=== PATIENT | male | born 1965 | race Caucasian/White ===

== ENCOUNTER → 2017-02-17 | Outpatient (REF) | payer MEDICARE, MEDICAID ==
[2017-02-17 20:46] LABS: MEAN CORPUSCULAR HEMOGLOBIN 28.9 pg (27.0-33.0); MEAN CORPUSCULAR HGB CONC 32.9 g/dl (32.0-36.5); RED CELL DISTRIBUTION WIDTH 12.5 % (11.5-14.5)
[2017-02-17 21:09] LABS: ALBUMIN/GLOBULIN RATIO 1.08 (1.00-1.93); ALKALINE PHOSPHATASE 78 U/L (45-117); ALT/SGPT 36 U/L (12-78); ANION GAP 8 MEQ/L (8-16); AST/SGOT 23 U/L (15-37); BILIRUBIN,TOTAL 0.9 MG/DL (0.2-1.0); BLOOD UREA NITROGEN 15 MG/DL (7-18); CARBON DIOXIDE LEVEL 29 MEQ/L (21-32); CHLORIDE LEVEL 104 MEQ/L (98-107); CHOLESTEROL LEVEL 188 MG/DL (<200); CREATININE FOR GFR 0.91 MG/DL (0.70-1.30); GLOMERULAR FILTRATION RATE > 60.0 (>60); GLUCOSE, FASTING 78 MG/DL (70-105); POTASSIUM SERUM 4.3 MEQ/L (3.5-5.1); SODIUM LEVEL 141 MEQ/L (136-145); TOTAL PROTEIN 7.7 GM/DL (6.4-8.2); TRIGLYCERIDES LEVEL 110 MG/DL (<150)
== END ==
LOC: M SFHCLERA 14:50
PROVIDERS: ATTEND Physician Assistant
DX: I10 Essential (primary) hypertension (principal); E78.2 Mixed hyperlipidemia; Z12.5 Encounter for screening for malignant neoplasm of prostate
CPT/HCPCS: 80053; 80061; 85027; G0103; G0463

== ENCOUNTER → 2018-02-18 | Outpatient (REF) | payer MEDICARE, MEDICAID ==
[2018-02-18 11:40] LABS: HEMATOCRIT 51.2 % (42.0-52.0); HEMOGLOBIN 16.6 g/dl (13.5-17.5); MEAN CORPUSCULAR HEMOGLOBIN 28.5 pg (27.0-33.0); MEAN CORPUSCULAR HGB CONC 32.4 g/dl (32.0-36.5); MEAN CORPUSCULAR VOLUME 87.8 fl (80.0-96.0); PLATELET COUNT, AUTOMATED 262 10^3/uL (150-450); RED BLOOD COUNT 5.83 10^6/uL (4.30-6.10); RED CELL DISTRIBUTION WIDTH 13.2 % (11.5-14.5); WHITE BLOOD COUNT 7.4 10^3/uL (4.0-10.0)
[2018-02-18 11:53] LABS: RHEUMATOID FACTOR QUANT < 10.0 IU/ML (<15.0)
[2018-02-18 12:04] LABS: ALBUMIN 4.1 GM/DL (3.2-5.2); ALBUMIN/GLOBULIN RATIO 1.21 (1.00-1.93); ALKALINE PHOSPHATASE 69 U/L (45-117); ALT/SGPT 31 U/L (12-78); ANION GAP 5 MEQ/L (8-16); AST/SGOT 16 U/L (7-37); BILIRUBIN,TOTAL 0.3 MG/DL (0.2-1.0); BLOOD UREA NITROGEN 16 MG/DL (7-18); CALCIUM LEVEL 8.9 MG/DL (8.5-10.1); CARBON DIOXIDE LEVEL 27 MEQ/L (21-32); CHLORIDE LEVEL 110 MEQ/L (98-107); CHOLESTEROL LEVEL 195 MG/DL (<200); CREATININE FOR GFR 0.88 MG/DL (0.70-1.30); GLOMERULAR FILTRATION RATE > 60.0 (>56); GLUCOSE, FASTING 76 MG/DL (70-100); HDL CHOLESTEROL 37 MG/DL (>40); NON-HDL-C 158 MG/DL; POTASSIUM SERUM 4.1 MEQ/L (3.5-5.1); SODIUM LEVEL 142 MEQ/L (136-145); TOTAL PROTEIN 7.5 GM/DL (6.4-8.2); TRIGLYCERIDES LEVEL 65 MG/DL (<150)
[2018-02-18 13:00] LABS: ESTIMATED AVERAGE GLUCOSE 111 MG/DL (60-110); HEMOGLOBIN A1c 5.5 %
[2018-02-18 13:28] LABS: ERYTHROCYTE SEDIMENTATION RATE 4 mm/hr (0-20)
[2018-02-20 00:07] LABS: ANTINUCLEAR ANTIBODIES DIRECT Negative (Negative)
== END ==
LOC: M SFHCLERA 08:58
DX: E78.2 Mixed hyperlipidemia (principal); I10 Essential (primary) hypertension; R73.01 Impaired fasting glucose
CPT/HCPCS: 80053

== ENCOUNTER → 2018-04-01 | Outpatient (CLI) | payer MEDICARE, MEDICAID | LOC: M RAD 12:54 | DX: R25.2 Cramp and spasm (principal) | CPT/HCPCS: 72080 ==

== ENCOUNTER → 2018-04-01 | Outpatient (CLI) | payer MEDICARE, MEDICAID | LOC: M PAIN 10:45 | DX: G89.29 Other chronic pain (principal); R25.2 Cramp and spasm; M54.5 Low back pain; G80.9 Cerebral palsy, unspecified; J45.909 Unspecified asthma, uncomplicated; E78.5 Hyperlipidemia, unspecified; M19.90 Unspecified osteoarthritis, unspecified site; F17.220 Nicotine dependence, chewing tobacco, uncomplicated; D86.9 Sarcoidosis, unspecified; Z79.899 Other long term (current) drug therapy; Z91.030 Bee allergy status | CPT/HCPCS: G0463 ==

== ENCOUNTER → 2018-05-12 | Outpatient (CLI) | payer MEDICARE, MEDICAID | LOC: M PAIN 08:30 | DX: R25.2 Cramp and spasm (principal); M54.5 Low back pain; G80.9 Cerebral palsy, unspecified; J45.909 Unspecified asthma, uncomplicated; D86.9 Sarcoidosis, unspecified; M19.90 Unspecified osteoarthritis, unspecified site; E78.5 Hyperlipidemia, unspecified; F17.220 Nicotine dependence, chewing tobacco, uncomplicated; Z79.899 Other long term (current) drug therapy; Z91.030 Bee allergy status | CPT/HCPCS: G0463 ==

== ENCOUNTER → 2018-08-12 | Outpatient (CLI) | payer MEDICARE, MEDICAID | LOC: M PAIN 08:30 | DX: R25.2 Cramp and spasm (principal); M54.5 Low back pain; G80.9 Cerebral palsy, unspecified; J45.909 Unspecified asthma, uncomplicated; E78.5 Hyperlipidemia, unspecified; F17.290 Nicotine dependence, other tobacco product, uncomplicated; Z79.899 Other long term (current) drug therapy; Z91.030 Bee allergy status | CPT/HCPCS: G0463 ==

== ENCOUNTER 2023-02-18 11:14 | Emergency (ER) | payer MEDICARE, MEDICAID ==
[~2023-02-18] VITALS: Ht 157.5 cm; Wt 77.3 kg
[2023-02-18] MEDS ORDERED: FLOM0.4C39 PO (11:27)
[2023-02-18] MEDS ORDERED: CIPR500T39 (11:27)
[2023-02-18 14:13] LABS: BASO % 0.5 % (0.0-1.0); EOS # 0.2 10^3/uL (0.0-0.5); EOS % 1.7 % (0.0-3.0); HEMATOCRIT 44.9 % (42.0-52.0); HEMOGLOBIN 14.4 g/dl (13.5-17.5); LYMPH # 1.3 10^3/uL (1.5-5.0); LYMPH % 14.9 % (24.0-44.0); MEAN CORPUSCULAR HEMOGLOBIN 27.4 pg (27.0-33.0); MEAN CORPUSCULAR HGB CONC 32.1 g/dl (32.0-36.5); MEAN CORPUSCULAR VOLUME 85.5 fl (80.0-96.0); MONO # 0.6 10^3/uL (0.0-0.8); MONO % 7.1 % (2.0-8.0); NEUTROPHILS # 6.7 10^3/uL (1.5-8.5); NEUTROPHILS % 75.3 % (36.0-66.0); PLATELET COUNT, AUTOMATED 318 10^3/uL (150-450); RED BLOOD COUNT 5.25 10^6/uL (4.30-6.10); WHITE BLOOD COUNT 8.9 10^3/uL (4.0-10.0)
[2023-02-18] MEDS ORDERED: NYSTATIN OINTMENT 15 GM TOP STA (15:22)
[2023-02-18] MEDS ORDERED: BACTRIM 160MG/800MG DS TAB PO ONE (15:25)
[2023-02-18] MEDS ORDERED: BACT800T5 PO (15:30)
[2023-02-18] MEDS ORDERED: NYSTOI TOP (15:30)
[2023-02-18 15:50] VITALS: BP 112/82
[2023-02-21] MEDS ORDERED: LEVO1TAB38 PO (08:55)
== END 2023-02-18 16:45 | disposition home or self-care (01) ==
LOC: M ED 11:14
DX: N30.00 Acute cystitis without hematuria (principal); N47.1 Phimosis; B37.49 Other urogenital candidiasis; G80.9 Cerebral palsy, unspecified; Z88.0 Allergy status to penicillin

== ENCOUNTER 2023-03-10 22:31 | Inpatient (IN) | payer MEDICARE, MEDICAID ==
[~2023-03-10] VITALS: Ht 160 cm; Wt 70.9 kg
[~2023-03-10 22:31] MED LIST: BACT800T5 PO; CIPR500T39; FLOM0.4C39 PO; LEVO1TAB38 PO; NYST100085 TOP
[2023-03-11 02:57] LABS: BASO # 0.1 10^3/uL (0.0-0.2); BASO % 0.5 % (0.0-1.0); EOS # 0.3 10^3/uL (0.0-0.5); EOS % 2.4 % (0.0-3.0); HEMATOCRIT 48.1 % (42.0-52.0); HEMOGLOBIN 15.3 g/dl (13.5-17.5); LYMPH # 2.1 10^3/uL (1.5-5.0); LYMPH % 17.7 % (24.0-44.0); MEAN CORPUSCULAR HGB CONC 31.8 g/dl (32.0-36.5); MEAN CORPUSCULAR VOLUME 84.8 fl (80.0-96.0); MONO # 1.1 10^3/uL (0.0-0.8); MONO % 9.3 % (2.0-8.0); NEUTROPHILS # 8.2 10^3/uL (1.5-8.5); NEUTROPHILS % 69.8 % (36.0-66.0); PLATELET COUNT, AUTOMATED 340 10^3/uL (150-450); RED BLOOD COUNT 5.67 10^6/uL (4.30-6.10); WHITE BLOOD COUNT 11.8 10^3/uL (4.0-10.0)
[2023-03-11 03:20] LABS: LIPASE 28 U/L (12-53)
[2023-03-11 03:23] LABS: ALBUMIN 3.5 G/DL (3.2-5.2); ALKALINE PHOSPHATASE 76 U/L (46-116); ALT/SGPT 14 U/L (7.0-40); AST/SGOT 15 U/L (<34); BILIRUBIN,DIRECT 0.2 MG/DL (<0.4); BILIRUBIN,TOTAL 0.5 MG/DL (0.3-1.2); BLOOD UREA NITROGEN 16 MG/DL (9-23); CALCIUM LEVEL 8.9 MG/DL (8.5-10.1); CARBON DIOXIDE LEVEL 26 MMOL/L (20-31); CHLORIDE LEVEL 104 MMOL/L (98-107); CREATININE FOR GFR 1.04 MG/DL (0.70-1.30); GLOMERULAR FILTRATION RATE > 60.0 (>56); GLUCOSE, FASTING 111 MG/DL (60-100); POTASSIUM SERUM 4.5 MMOL/L (3.5-5.1); SODIUM LEVEL 136 MMOL/L (136-145); TOTAL PROTEIN 6.7 G/DL (5.7-8.2)
[2023-03-11] MEDS ORDERED: LIDOCAINE 2% 5ML JELLY UROJET TOP ONE (03:45)
[2023-03-11 03:47] LABS: APPEARANCE, URINE CLOUDY (CLEAR); BACTERIA, URINE AUTO NEGATIVE (NEGATIVE); BILIRUBIN, URINE AUTO NEGATIVE (NEGATIVE); BLOOD, URINE BLOOD 3+ (NEGATIVE); COLOR, URINE AMBER (YELLOW); GLUCOSE, URINE (UA) AUTO 1+ mg/dL (NEGATIVE); KETONE, URINE AUTO NEGATIVE (NEGATIVE); LEUKOCYTE ESTERASE, URINE AUTO TRACE (NEGATIVE); MUCUS, URINE SMALL (NEGATIVE); NITRITE, URINE AUTO NEGATIVE (NEGATIVE); PROTEIN, URINE AUTO 2+ mg/dL (NEGATIVE); RBC, URINE AUTO TNTC /HPF (0-3); SPECIFIC GRAVITY URINE AUTO 1.024 (1.002-1.035); SQUAMOUS EPITHELIAL CELL UR AU 0 /HPF (0-6); UROBILINOGEN, URINE AUTO 0.2 mg/dL (0.0-2.0); WBC, URINE AUTO 31 /HPF (0-3)
[2023-03-11] MEDS ORDERED: MAALOX 30 ML SUSP *UDC PO PRN (07:35)
[2023-03-11] MEDS ORDERED: MOM 30ML SUSPENSION UDC PO PRN (07:35)
[2023-03-11] MEDS ORDERED: NYST10OI TOP (07:39)
[2023-03-11] MEDS ORDERED: HOME MED LIST COMPLETE! XX SCH (07:40)
[2023-03-11 08:33] LABS: RSV AMPLIFICATION NEGATIVE (NEGATIVE)
[2023-03-11] MEDS: DOCUSATE SODIUM 100MG CAPSULE PO SCH ×2 (09:26→20:50)
[2023-03-11] MEDS: TAMSULOSIN 0.4 MG CAP PO SCH (10:50)
[2023-03-11 10:58] LABS: HEMATOCRIT 47.3 % (42.0-52.0); HEMOGLOBIN 15.2 g/dl (13.5-17.5)
[2023-03-11] MEDS: NYSTATIN OINTMENT 15 GM TOP SCH ×3 (13:00→20:50)
[2023-03-11] MEDS ORDERED: MORPHINE 2 MG/ML 1ML VIAL IV PRN (15:15)
[2023-03-11] MEDS: ACETAMINOPHEN TAB 650MG DOSE (2X325MG) PO PRN (16:11)
[2023-03-11] MEDS: NS 1,000 ML IV SCH (16:34)
[2023-03-11 17:29] LABS: HEMATOCRIT 44.5 % (42.0-52.0); HEMOGLOBIN 14.3 g/dl (13.5-17.5)
[2023-03-11 21:00] VITALS: BP 131/79
[2023-03-12 00:14] LABS: HEMATOCRIT 42.3 % (42.0-52.0); HEMOGLOBIN 13.4 g/dl (13.5-17.5)
[2023-03-12] MEDS ORDERED: MORPHINE 2 MG/ML 1ML VIAL IV ONE (03:00)
[2023-03-12] MEDS: NS 1,000 ML IV SCH ×3 (04:04→23:16)
[2023-03-12] MEDS: oxyBUTYnin 5 MG TAB PO PRN (04:04)
[2023-03-12 06:00] VITALS: BP 116/77
[2023-03-12 06:21] LABS: BASO # 0.1 10^3/uL (0.0-0.2); BASO % 0.3 % (0.0-1.0); EOS # 0.2 10^3/uL (0.0-0.5); HEMATOCRIT 43.2 % (42.0-52.0); HEMOGLOBIN 13.5 g/dl (13.5-17.5); LYMPH # 1.9 10^3/uL (1.5-5.0); LYMPH % 11.4 % (24.0-44.0); MEAN CORPUSCULAR HEMOGLOBIN 26.9 pg (27.0-33.0); MEAN CORPUSCULAR HGB CONC 31.3 g/dl (32.0-36.5); MEAN CORPUSCULAR VOLUME 86.1 fl (80.0-96.0); MONO % 9.8 % (2.0-8.0); NEUTROPHILS # 12.6 10^3/uL (1.5-8.5); NEUTROPHILS % 77.1 % (36.0-66.0); PLATELET COUNT, AUTOMATED 299 10^3/uL (150-450); RED BLOOD COUNT 5.02 10^6/uL (4.30-6.10); WHITE BLOOD COUNT 16.3 10^3/uL (4.0-10.0)
[2023-03-12 06:28] LABS: MONO # 1.6 10^3/uL (0.0-0.8)
[2023-03-12 06:53] LABS: BLOOD UREA NITROGEN 20 MG/DL (9-23); CALCIUM LEVEL 8.6 MG/DL (8.5-10.1); CARBON DIOXIDE LEVEL 24 MMOL/L (20-31); CHLORIDE LEVEL 106 MMOL/L (98-107); CREATININE FOR GFR 0.88 MG/DL (0.70-1.30); GLOMERULAR FILTRATION RATE > 60.0 (>56); GLUCOSE, FASTING 98 MG/DL (60-100); MAGNESIUM LEVEL 1.8 MG/DL (1.8-2.4); POTASSIUM SERUM 4.3 MMOL/L (3.5-5.1); SODIUM LEVEL 138 MMOL/L (136-145)
[2023-03-12] MEDS: DOCUSATE SODIUM 100MG CAPSULE PO SCH ×2 (09:00→21:49)
[2023-03-12] MEDS: TAMSULOSIN 0.4 MG CAP PO SCH (09:00)
[2023-03-12] MEDS: NYSTATIN OINTMENT 15 GM TOP SCH ×4 (09:56→21:49)
[2023-03-12] MEDS: LevoFLOXacin IV 750 MG in IV 1 EA IV SCH (09:56)
[2023-03-12 14:00] VITALS: BP 119/78
[2023-03-12 17:50] LABS: BASO # 0.1 10^3/uL (0.0-0.2); BASO % 0.4 % (0.0-1.0); EOS # 0.1 10^3/uL (0.0-0.5); EOS % 0.3 % (0.0-3.0); HEMATOCRIT 40.9 % (42.0-52.0); LYMPH # 1.3 10^3/uL (1.5-5.0); MEAN CORPUSCULAR HEMOGLOBIN 27.1 pg (27.0-33.0); MEAN CORPUSCULAR HGB CONC 31.8 g/dl (32.0-36.5); MEAN CORPUSCULAR VOLUME 85.4 fl (80.0-96.0); MONO % 11.8 % (2.0-8.0); NEUTROPHILS # 12.6 10^3/uL (1.5-8.5); NEUTROPHILS % 79.2 % (36.0-66.0); PLATELET COUNT, AUTOMATED 285 10^3/uL (150-450); RED BLOOD COUNT 4.79 10^6/uL (4.30-6.10); WHITE BLOOD COUNT 15.9 10^3/uL (4.0-10.0)
[2023-03-12] MEDS: ACETAMINOPHEN TAB 650MG DOSE (2X325MG) PO PRN (18:00)
[2023-03-12 18:05] LABS: MONO # 1.9 10^3/uL (0.0-0.8)
[2023-03-12] MEDS ORDERED: NS 1,000 ML IV ONE (18:20)
[2023-03-12 18:27] LABS: ALKALINE PHOSPHATASE 63 U/L (46-116); ALT/SGPT 13 U/L (7.0-40); AST/SGOT 16 U/L (<34); BLOOD UREA NITROGEN 17 MG/DL (9-23); CARBON DIOXIDE LEVEL 24 MMOL/L (20-31); CHLORIDE LEVEL 106 MMOL/L (98-107); CREATININE FOR GFR 0.86 MG/DL (0.70-1.30); GLOMERULAR FILTRATION RATE > 60.0 (>56); GLUCOSE, FASTING 105 MG/DL (60-100); MAGNESIUM LEVEL 1.7 MG/DL (1.8-2.4); POTASSIUM SERUM 3.9 MMOL/L (3.5-5.1); SODIUM LEVEL 138 MMOL/L (136-145)
[2023-03-12] MEDS ORDERED: MAG SULF 1GM/100ML (MAG RUN) 1 GM in IV 1 EA IV ONE (18:30)
[2023-03-12] MEDS ORDERED: VANCOMYCIN HCL 1,000 MG, VIAL MATE ADAPTER 1 EACH in D5W 250 ML IV ONE (20:00)
[2023-03-12 21:00] VITALS: BP 108/68
[2023-03-12] MEDS ORDERED: VANCOMYCIN HCL 750 MG, VIAL MATE ADAPTER 1 EACH in D5W 250 ML IV ONE (21:00)
[2023-03-12] MEDS: FLUTICASONE PROP 0.05% NASAL SPRAY 16 GM (FLONASE) NARES SCH (22:08)
[2023-03-13] MEDS: VANCOMYCIN HCL 1,000 MG, VIAL MATE ADAPTER 1 EACH in D5W 250 ML IV SCH ×3 (03:58→20:07)
[2023-03-13 06:00] VITALS: BP 108/58
[2023-03-13 06:32] LABS: BASO # 0.1 10^3/uL (0.0-0.2); BASO % 0.4 % (0.0-1.0); EOS # 0.2 10^3/uL (0.0-0.5); EOS % 1.2 % (0.0-3.0); HEMATOCRIT 37.8 % (42.0-52.0); LYMPH # 1.5 10^3/uL (1.5-5.0); LYMPH % 11.4 % (24.0-44.0); MEAN CORPUSCULAR HEMOGLOBIN 27.3 pg (27.0-33.0); MEAN CORPUSCULAR HGB CONC 31.7 g/dl (32.0-36.5); MEAN CORPUSCULAR VOLUME 85.9 fl (80.0-96.0); MONO # 1.4 10^3/uL (0.0-0.8); MONO % 11.1 % (2.0-8.0); NEUTROPHILS # 9.6 10^3/uL (1.5-8.5); NEUTROPHILS % 75.4 % (36.0-66.0); PLATELET COUNT, AUTOMATED 232 10^3/uL (150-450); WHITE BLOOD COUNT 12.7 10^3/uL (4.0-10.0)
[2023-03-13 07:03] LABS: BLOOD UREA NITROGEN 11 MG/DL (9-23); CALCIUM LEVEL 8.1 MG/DL (8.5-10.1); CARBON DIOXIDE LEVEL 24 MMOL/L (20-31); CHLORIDE LEVEL 106 MMOL/L (98-107); CREATININE FOR GFR 0.77 MG/DL (0.70-1.30); GLOMERULAR FILTRATION RATE > 60.0 (>56); GLUCOSE, FASTING 105 MG/DL (60-100); POTASSIUM SERUM 3.9 MMOL/L (3.5-5.1); SODIUM LEVEL 136 MMOL/L (136-145)
[2023-03-13] MEDS: LevoFLOXacin IV 750 MG in IV 1 EA IV SCH (07:57)
[2023-03-13] MEDS: NS 1,000 ML IV SCH ×2 (07:58→13:31)
[2023-03-13] MEDS ORDERED: MORPHINE 2 MG/ML 1ML VIAL IV PRN (08:50)
[2023-03-13] MEDS: TAMSULOSIN 0.4 MG CAP PO SCH (11:14)
[2023-03-13] MEDS: DOCUSATE SODIUM 100MG CAPSULE PO SCH ×2 (11:14→20:12)
[2023-03-13] MEDS: oxyBUTYnin 5 MG TAB PO PRN (11:14)
[2023-03-13] MEDS: NYSTATIN OINTMENT 15 GM TOP SCH ×4 (11:15→20:09)
[2023-03-13] MEDS: FLUTICASONE PROP 0.05% NASAL SPRAY 16 GM (FLONASE) NARES SCH ×2 (11:15→20:08)
[2023-03-13 14:00] VITALS: BP 112/76
[2023-03-13 21:45] VITALS: BP 109/73
[2023-03-14] MEDS: NS 1,000 ML IV SCH ×2 (04:01→15:09)
[2023-03-14] MEDS: VANCOMYCIN HCL 1,000 MG, VIAL MATE ADAPTER 1 EACH in D5W 250 ML IV SCH ×2 (04:01→12:10)
[2023-03-14 05:24] VITALS: BP 114/74
[2023-03-14 05:50] LABS: BASO # 0.1 10^3/uL (0.0-0.2); BASO % 0.4 % (0.0-1.0); EOS # 0.3 10^3/uL (0.0-0.5); EOS % 2.7 % (0.0-3.0); HEMATOCRIT 37.5 % (42.0-52.0); HEMOGLOBIN 11.6 g/dl (13.5-17.5); LYMPH # 1.9 10^3/uL (1.5-5.0); MEAN CORPUSCULAR HEMOGLOBIN 26.9 pg (27.0-33.0); MEAN CORPUSCULAR HGB CONC 30.9 g/dl (32.0-36.5); MONO # 1.2 10^3/uL (0.0-0.8); MONO % 10.4 % (2.0-8.0); NEUTROPHILS # 7.8 10^3/uL (1.5-8.5); NEUTROPHILS % 69.1 % (36.0-66.0); PLATELET COUNT, AUTOMATED 244 10^3/uL (150-450); RED BLOOD COUNT 4.31 10^6/uL (4.30-6.10); WHITE BLOOD COUNT 11.4 10^3/uL (4.0-10.0)
[2023-03-14 06:13] LABS: BLOOD UREA NITROGEN 9 MG/DL (9-23); CALCIUM LEVEL 7.8 MG/DL (8.5-10.1); CARBON DIOXIDE LEVEL 27 MMOL/L (20-31); CHLORIDE LEVEL 107 MMOL/L (98-107); CREATININE FOR GFR 0.82 MG/DL (0.70-1.30); GLOMERULAR FILTRATION RATE > 60.0 (>56); GLUCOSE, FASTING 110 MG/DL (60-100); MAGNESIUM LEVEL 1.9 MG/DL (1.8-2.4); POTASSIUM SERUM 3.6 MMOL/L (3.5-5.1); SODIUM LEVEL 141 MMOL/L (136-145)
[2023-03-14] MEDS ORDERED: CVS1CAP2 PO (08:33)
[2023-03-14] MEDS ORDERED: LINE1TAB6 PO (08:33)
[2023-03-14] MEDS: TAMSULOSIN 0.4 MG CAP PO SCH (09:03)
[2023-03-14] MEDS: LevoFLOXacin IV 750 MG in IV 1 EA IV SCH (09:03)
[2023-03-14] MEDS: FLUTICASONE PROP 0.05% NASAL SPRAY 16 GM (FLONASE) NARES SCH (09:04)
[2023-03-14] MEDS: DOCUSATE SODIUM 100MG CAPSULE PO SCH (09:04)
[2023-03-14] MEDS: NYSTATIN OINTMENT 15 GM TOP SCH ×2 (09:04→12:10)
[2023-03-14 14:00] VITALS: BP 118/85
[2023-03-14] MEDS ORDERED: FLOM0.4C39 PO (16:27)
== END 2023-03-14 16:52 | disposition home health service (06) | DRG 698 ==
LOC: M ED 22:31 → M ED INP 22:32 → ENRESERV 03-11 11:30 → M MSPAV 03-11 12:15 → OBSVTOIN 03-12 16:16 → EEVIPCON 03-12 16:16
PROVIDERS: ADMIT Internal Medicine; ATTEND Internal Medicine
DX: T83.511A Infection and inflammatory reaction due to indwelling urethral catheter, initial encounter (principal); A41.9 Sepsis, unspecified organism; E87.20 Acidosis, unspecified; R31.0 Gross hematuria; G80.9 Cerebral palsy, unspecified; N39.0 Urinary tract infection, site not specified; N40.1 Benign prostatic hyperplasia with lower urinary tract symptoms; R91.1 Solitary pulmonary nodule; Z79.899 Other long term (current) drug therapy; Z88.0 Allergy status to penicillin; Z88.5 Allergy status to narcotic agent; Z20.822 Contact with and (suspected) exposure to COVID-19

== ENCOUNTER 2023-03-16 20:14 | Observation (INO) | payer MEDICARE, MEDICAID ==
[~2023-03-16] VITALS: Ht 160 cm; Wt 75.5 kg
[~2023-03-16 20:14] MED LIST changes: +CVS1CAP2 PO; +LINE1TAB6 PO; +NYST10OI TOP
[2023-03-16] MEDS ORDERED: ACETAMINOPHEN 325 MG TAB PO ONE (20:55)
[2023-03-16] MEDS ORDERED: NS 1,000 ML IV SCH (20:55)
[2023-03-16 21:42] LABS: BASO % 0.5 % (0.0-1.0); EOS # 0.2 10^3/uL (0.0-0.5); HEMATOCRIT 41.8 % (42.0-52.0); HEMOGLOBIN 13.5 g/dl (13.5-17.5); LYMPH % 13.3 % (24.0-44.0); MEAN CORPUSCULAR HEMOGLOBIN 26.8 pg (27.0-33.0); MEAN CORPUSCULAR HGB CONC 32.3 g/dl (32.0-36.5); MEAN CORPUSCULAR VOLUME 83.1 fl (80.0-96.0); MONO # 0.7 10^3/uL (0.0-0.8); MONO % 8.7 % (2.0-8.0); NEUTROPHILS # 5.6 10^3/uL (1.5-8.5); NEUTROPHILS % 74.1 % (36.0-66.0); PLATELET COUNT, AUTOMATED 289 10^3/uL (150-450); RED BLOOD COUNT 5.03 10^6/uL (4.30-6.10); WHITE BLOOD COUNT 7.6 10^3/uL (4.0-10.0)
[2023-03-16 22:04] LABS: LIPASE 21 U/L (12-53)
[2023-03-16 22:06] LABS: ALKALINE PHOSPHATASE 70 U/L (46-116); ALT/SGPT 42 U/L (7.0-40); AST/SGOT 33 U/L (<34); BILIRUBIN,DIRECT 0.3 MG/DL (<0.4); BILIRUBIN,TOTAL 0.8 MG/DL (0.3-1.2); BLOOD UREA NITROGEN 11 MG/DL (9-23); CALCIUM LEVEL 8.3 MG/DL (8.5-10.1); CARBON DIOXIDE LEVEL 25 MMOL/L (20-31); CHLORIDE LEVEL 101 MMOL/L (98-107); CREATININE FOR GFR 0.84 MG/DL (0.70-1.30); GLOMERULAR FILTRATION RATE > 60.0 (>56); GLUCOSE, FASTING 89 MG/DL (60-100); POTASSIUM SERUM 3.4 MMOL/L (3.5-5.1); SODIUM LEVEL 137 MMOL/L (136-145); TOTAL PROTEIN 6.3 G/DL (5.7-8.2)
[2023-03-16 22:28] LABS: RSV AMPLIFICATION NEGATIVE (NEGATIVE)
[2023-03-16] MEDS ORDERED: FLOM0.4C39 PO (23:16)
[2023-03-16] MEDS ORDERED: LINE1TAB6 PO (23:16)
[2023-03-16] MEDS ORDERED: RISATAB3 PO (23:16)
[2023-03-16] MEDS ORDERED: FLON1SPR NARES (23:16)
[2023-03-16] MEDS ORDERED: HOME MED LIST COMPLETE! XX SCH (23:20)
[2023-03-17 01:46] VITALS: BP 94/68
[2023-03-17] MEDS ORDERED: HYDROMORPHONE HCL 0.5 MG/ 0.5 ML SYRINGE IV PRN (02:25)
[2023-03-17] MEDS: NS 1,000 ML IV SCH ×3 (02:25→21:53)
[2023-03-17 06:00] VITALS: BP 101/67
[2023-03-17 06:18] LABS: HEMATOCRIT 37.7 % (42.0-52.0); HEMOGLOBIN 11.9 g/dl (13.5-17.5)
[2023-03-17 06:44] LABS: BLOOD UREA NITROGEN 13 MG/DL (9-23); CALCIUM LEVEL 7.8 MG/DL (8.5-10.1); CARBON DIOXIDE LEVEL 29 MMOL/L (20-31); CHLORIDE LEVEL 105 MMOL/L (98-107); CREATININE FOR GFR 0.85 MG/DL (0.70-1.30); GLOMERULAR FILTRATION RATE > 60.0 (>56); GLUCOSE, FASTING 110 MG/DL (60-100); POTASSIUM SERUM 3.1 MMOL/L (3.5-5.1); SODIUM LEVEL 138 MMOL/L (136-145)
[2023-03-17 07:51] LABS: MAGNESIUM LEVEL 1.7 MG/DL (1.8-2.4)
[2023-03-17] MEDS: LINEZOLID 600MG TABLET (ZYVOX) PO SCH ×2 (08:04→21:53)
[2023-03-17] MEDS: TAMSULOSIN 0.4 MG CAP PO SCH (08:04)
[2023-03-17 14:00] VITALS: BP 115/77
[2023-03-17] MEDS ORDERED: VANCOMYCIN HCL 1,000 MG, VIAL MATE ADAPTER 1 EACH in NS 250 ML IV ONE (16:10)
[2023-03-17] MEDS ORDERED: GENTAMICIN 80 MG in IV 1 EA IV ONE (16:10)
[2023-03-17] MEDS ORDERED: VANCOMYCIN 1000MG/20ML VIAL As Ordered ONE (16:14)
[2023-03-17] MEDS ORDERED: GENTAMICIN SULF 80MG/2ML VIAL As Ordered ONE (16:14)
[2023-03-17] MEDS ORDERED: MIDAZOLAM INJ 2MG/2ML VIAL As Ordered ONE (18:00)
[2023-03-17] MEDS ORDERED: fentaNYL 250 MCG/5 ML INJECTION As Ordered ONE (18:00)
[2023-03-17] MEDS ORDERED: ROCURONIUM BROMIDE 50MG/5ML VIAL As Ordered ONE (18:00)
[2023-03-17] MEDS ORDERED: propofoL 200 MG/20 ML VIAL As Ordered ONE (18:00)
[2023-03-17] MEDS ORDERED: LIDOCAINE PRES-FREE 2% 10ML AMP As Ordered ONE (18:00)
[2023-03-17] MEDS ORDERED: PHENYLephrine 500MCG 5ML (100MCG/ML) SYRINGE As Ordered ONE (18:40)
[2023-03-17] MEDS ORDERED: ONDANSETRON 4MG 2ML VIAL As Ordered ONE (18:40)
[2023-03-17] MEDS ORDERED: SUGAMMADEX SODIUM 500 MG/5 ML VIAL (BRIDION) As Ordered ONE (18:46)
[2023-03-17] MEDS ORDERED: ACETAMINOPHEN 1000MG 100ML IV BAG As Ordered ONE (18:50)
[2023-03-17 20:00] VITALS: BP 126/86
[2023-03-17] MEDS ORDERED: FUROSEMIDE 100MG/10ML VIAL As Ordered ONE (20:28)
[2023-03-17] MEDS ORDERED: ONDANSETRON 4MG 2ML VIAL IV PRN (20:35)
[2023-03-17] MEDS ORDERED: fentaNYL 100 MCG/2 ML INJECTION IV PRN (20:35)
[2023-03-17] MEDS: HYDROMORPHONE HCL 0.5 MG/ 0.5 ML SYRINGE IV PRN ×2 (21:11→21:16)
[2023-03-18 06:00] VITALS: BP 108/62
[2023-03-18 06:17] LABS: BASO % 0.3 % (0.0-1.0); HEMOGLOBIN 12.8 g/dl (13.5-17.5); LYMPH # 0.8 10^3/uL (1.5-5.0); LYMPH % 11.5 % (24.0-44.0); MEAN CORPUSCULAR HEMOGLOBIN 26.6 pg (27.0-33.0); MEAN CORPUSCULAR HGB CONC 31.2 g/dl (32.0-36.5); MEAN CORPUSCULAR VOLUME 85.1 fl (80.0-96.0); MONO # 0.3 10^3/uL (0.0-0.8); MONO % 4.2 % (2.0-8.0); NEUTROPHILS # 5.8 10^3/uL (1.5-8.5); NEUTROPHILS % 83.7 % (36.0-66.0); PLATELET COUNT, AUTOMATED 304 10^3/uL (150-450); RED BLOOD COUNT 4.82 10^6/uL (4.30-6.10); WHITE BLOOD COUNT 6.9 10^3/uL (4.0-10.0)
[2023-03-18 06:35] LABS: BLOOD UREA NITROGEN 10 MG/DL (9-23); CARBON DIOXIDE LEVEL 26 MMOL/L (20-31); CHLORIDE LEVEL 106 MMOL/L (98-107); CREATININE FOR GFR 0.73 MG/DL (0.70-1.30); GLOMERULAR FILTRATION RATE > 60.0 (>56); GLUCOSE, FASTING 112 MG/DL (60-100); MAGNESIUM LEVEL 1.8 MG/DL (1.8-2.4); SODIUM LEVEL 137 MMOL/L (136-145)
[2023-03-18] MEDS: LINEZOLID 600MG TABLET (ZYVOX) PO SCH (07:55)
[2023-03-18] MEDS: TAMSULOSIN 0.4 MG CAP PO SCH (07:55)
[2023-03-18] MEDS: NS 1,000 ML IV SCH (07:56)
== END 2023-03-18 11:53 | disposition home or self-care (01) ==
LOC: M ED 20:14 → M ED INP 23:47 → M MSPAV 03-17 01:45
PROVIDERS: ADMIT Internal Medicine; ATTEND Internal Medicine
DX: C67.2 Malignant neoplasm of lateral wall of bladder (principal); C67.4 Malignant neoplasm of posterior wall of bladder; R31.0 Gross hematuria; G80.9 Cerebral palsy, unspecified; R26.89 Other abnormalities of gait and mobility; N39.0 Urinary tract infection, site not specified; A49.01 Methicillin susceptible Staphylococcus aureus infection, unspecified site; T83.091A Other mechanical complication of indwelling urethral catheter, initial encounter; Y73.2 Prosthetic and other implants, materials and accessory gastroenterology and urology devices associated with adverse incidents; R10.2 Pelvic and perineal pain; Z79.899 Other long term (current) drug therapy; Z79.2 Long term (current) use of antibiotics; Z88.0 Allergy status to penicillin; Z88.5 Allergy status to narcotic agent; F17.220 Nicotine dependence, chewing tobacco, uncomplicated
CPT/HCPCS: 36415; 51700; 52240; 80048; 80076; 83690; 83735; 85014; 85018; 85025; 86850; 86900; 86901; 87631; 88307; 96374; 99285; G0378; J0131; J1100; J1170; J1580; J1940; J2250; J2370; J2405; J3010

== ENCOUNTER → 2023-04-13 | Outpatient (CLI) | payer MEDICARE, MEDICAID ==
[~2023-04-13] MED LIST changes: +FLON1SPR NARES; +ISOVUE-370 76% 100ML VIAL As Ordered ONE; +RISATAB3 PO
== END ==
LOC: M RAD 08:23
PROVIDERS: ATTEND Urology
DX: C67.9 Malignant neoplasm of bladder, unspecified (principal)
CPT/HCPCS: 71260; 74177; Q9967

== ENCOUNTER → 2023-07-03 | Outpatient (CLI) | payer MEDICARE, MEDICAID ==
[~2023-07-03] MED LIST changes: +ATOR1TAB19 PO; +BACL10TA2 PO; +CLAR10CA3 PO; +EAR6.5DR10; +ERGO500029 PO; +FLON1SPR; +GABA-1171 PO; -ISOVUE-370 76% 100ML VIAL As Ordered ONE; +LISI20TA33 PO; +MELO15TA28 PO; +PROA1AER2 INH; +SYMB16INH INH; +TAMS1CAP17 PO
== END ==
LOC: M RAD 11:21
PROVIDERS: ATTEND Urology
DX: C67.9 Malignant neoplasm of bladder, unspecified (principal); R00.0 Tachycardia, unspecified

== ENCOUNTER → 2023-08-03 | Outpatient (CLI) | payer MEDICARE, MEDICAID ==
[~2023-08-03] MED LIST changes: +COLA100C5 PO; -EAR6.5DR10; +EAR6.5DR10 AU; -FLON1SPR; +HYDR-3713 PO
== END ==
LOC: M PLARAD 14:06
PROVIDERS: ATTEND Urology
DX: C67.8 Malignant neoplasm of overlapping sites of bladder (principal); R91.1 Solitary pulmonary nodule; N13.30 Unspecified hydronephrosis
CPT/HCPCS: 78815; A9552

== ENCOUNTER → 2023-09-09 | Outpatient (CLI) | payer MEDICAID, MEDICARE ==
[~2023-09-09] MED LIST changes: +LIDOCAINE 1% MDV 20ML VIAL As Ordered ONE
[2023-09-09 08:06] VITALS: BP 127/89; TEMP 99.5; O2SAT 96
[2023-09-09 08:40] LABS: HEMATOCRIT 39.9 % (42.0-52.0); HEMOGLOBIN 12.4 g/dl (13.5-17.5); MEAN CORPUSCULAR HEMOGLOBIN 25.4 pg (27.0-33.0); MEAN CORPUSCULAR HGB CONC 31.1 g/dl (32.0-36.5); MEAN CORPUSCULAR VOLUME 81.8 fl (80.0-96.0); PLATELET COUNT, AUTOMATED 337 10^3/uL (150-450); RED BLOOD COUNT 4.88 10^6/uL (4.30-6.10); WHITE BLOOD COUNT 10.2 10^3/uL (4.0-10.0)
[2023-09-09 09:09] LABS: INR 1.15; PROTHROMBIN TIME 14.3 SECONDS (12.5-14.5)
== END ==
LOC: M IRPRO 07:49
PROVIDERS: ATTEND Urology
DX: C67.9 Malignant neoplasm of bladder, unspecified (principal)

== ENCOUNTER 2023-09-28 15:05 | Inpatient (IN) | payer MEDICAID, MEDICARE, OTHER ==
[~2023-09-28] VITALS: Ht 160 cm; Wt 73.9 kg
[~2023-09-28 15:05] MED LIST changes: -LIDOCAINE 1% MDV 20ML VIAL As Ordered ONE
[2023-09-28 16:08] LABS: BASO # 0.1 10^3/uL (0.0-0.2); BASO % 0.5 % (0.0-1.0); EOS # 0.2 10^3/uL (0.0-0.5); EOS % 1.9 % (0.0-3.0); HEMATOCRIT 33.9 % (42.0-52.0); HEMOGLOBIN 10.8 g/dl (13.5-17.5); LYMPH # 1.2 10^3/uL (1.5-5.0); LYMPH % 11.4 % (24.0-44.0); MEAN CORPUSCULAR HEMOGLOBIN 25.6 pg (27.0-33.0); MEAN CORPUSCULAR HGB CONC 31.9 g/dl (32.0-36.5); MEAN CORPUSCULAR VOLUME 80.3 fl (80.0-96.0); MONO # 1.2 10^3/uL (0.0-0.8); MONO % 11.8 % (2.0-8.0); NEUTROPHILS # 7.7 10^3/uL (1.5-8.5); NEUTROPHILS % 73.8 % (36.0-66.0); PLATELET COUNT, AUTOMATED 360 10^3/uL (150-450); RED BLOOD COUNT 4.22 10^6/uL (4.30-6.10); WHITE BLOOD COUNT 10.4 10^3/uL (4.0-10.0)
[2023-09-28 16:33] LABS: CREATININE FOR GFR 1.67 MG/DL (0.70-1.30); GLOMERULAR FILTRATION RATE 45.5 (>56); POTASSIUM SERUM 3.5 MMOL/L (3.5-5.1)
[2023-09-28] MEDS ORDERED: cefTRIAXone SOD 1 GM in D5W MINI-BAG PLUS 50 ML IV ONE (17:15)
[2023-09-28] MEDS ORDERED: ISOVUE-370 76% 100ML VIAL As Ordered ONE (17:18)
[2023-09-28 17:32] LABS: ALBUMIN 2.6 G/DL (3.2-5.2); BILIRUBIN,DIRECT 0.2 MG/DL (<0.4); BILIRUBIN,TOTAL 0.4 MG/DL (0.3-1.2); TOTAL PROTEIN 7.2 G/DL (5.7-8.2)
[2023-09-28] MEDS ORDERED: ACET-897 PO (19:15)
[2023-09-28] MEDS ORDERED: BISA1TAB PO (19:18)
[2023-09-28] MEDS ORDERED: POTA-149 PO (19:18)
[2023-09-28] MEDS ORDERED: DOCU100C16 PO (19:18)
[2023-09-28] MEDS ORDERED: ALPR0.25 PO (19:18)
[2023-09-28] MEDS ORDERED: ONDA-83 PO (19:21)
[2023-09-28] MEDS ORDERED: LIDO76.52 TOP (19:21)
[2023-09-28] MEDS ORDERED: HYDR-3713 PO (19:22)
[2023-09-28] MEDS ORDERED: HOME MED LIST COMPLETE! XX SCH (19:25)
[2023-09-28] MEDS ORDERED: ALPRAZolam 0.25 MG TAB PO PRN (19:55)
[2023-09-28] MEDS ORDERED: HYDROMORPHONE HCL 0.5 MG/ 0.5 ML SYRINGE IV PRN (19:55)
[2023-09-28] MEDS ORDERED: ALBUTEROL SULFATE 2.5MG/0.5ML INH NEB SOLN NEB PRN (19:55)
[2023-09-28] MEDS ORDERED: IPRATROPIUM 0.5MG/ALBUTEROL 2.5MG INH SOL UD 3ML (DUONEB) NEB SCH (20:00)
[2023-09-28] MEDS ORDERED: NS 1,000 ML IV SCH (20:00)
[2023-09-28 20:16] LABS: RSV AMPLIFICATION NEGATIVE (NEGATIVE)
[2023-09-28] MEDS: NS 1,000 ML IV SCH (20:41)
[2023-09-28 21:50] VITALS: BP 139/72; TEMP 99.9; O2SAT 96
[2023-09-28] MEDS: HEPARIN SOD (PORCINE) 5000UNITS/ML 1ML VIAL/SYRINGE SC SCH (22:00)
[2023-09-28] MEDS ORDERED: PANTOPRAZOLE 40MG VIAL IV ONE (23:20)
[2023-09-29] MEDS: HEPARIN SOD (PORCINE) 5000UNITS/ML 1ML VIAL/SYRINGE SC SCH ×3 (05:34→22:00)
[2023-09-29 06:00] VITALS: BP 100/66; TEMP 99.9; O2SAT 97
[2023-09-29 06:49] LABS: ALBUMIN 2.4 G/DL (3.2-5.2); BILIRUBIN,TOTAL 0.6 MG/DL (0.3-1.2); CALCIUM LEVEL 8.2 MG/DL (8.5-10.1); CREATININE FOR GFR 1.83 MG/DL (0.70-1.30); POTASSIUM SERUM 3.3 MMOL/L (3.5-5.1); TOTAL PROTEIN 6.9 G/DL (5.7-8.2)
[2023-09-29] MEDS: DOCUSATE SODIUM 100MG CAPSULE PO SCH ×2 (09:00→09:11)
[2023-09-29] MEDS: BISACODYL 5MG TAB PO SCH ×2 (09:00→09:11)
[2023-09-29] MEDS: GABAPENTIN 100 MG CAP PO SCH (09:11)
[2023-09-29] MEDS: PANTOPRAZOLE 40MG VIAL IV SCH (09:12)
[2023-09-29] MEDS: VANCOMYCIN HCL 1,000 MG, VIAL MATE ADAPTER 1 EACH in D5W 250 ML IV SCH (13:06)
[2023-09-29] MEDS ORDERED: VANCOMYCIN HCL 750 MG, VIAL MATE ADAPTER 1 EACH in D5W 250 ML IV ONE (14:00)
[2023-09-29 14:51] VITALS: BP 130/82; TEMP 99.1; O2SAT 94
[2023-09-29] MEDS: ONDANSETRON 4MG 2ML VIAL IV PRN (16:28)
[2023-09-29] MEDS: HYDROMORPHONE HCL 0.5 MG/ 0.5 ML SYRINGE IV PRN (16:30)
[2023-09-29] MEDS ORDERED: cefTRIAXone SOD 1 GM in D5W MINI-BAG PLUS 50 ML IV SCH (18:00)
[2023-09-29 20:02] VITALS: BP 124/75; TEMP 98.4; O2SAT 97
[2023-09-29] MEDS: NS 1,000 ML IV SCH (23:41)
[2023-09-30] MEDS: HEPARIN SOD (PORCINE) 5000UNITS/ML 1ML VIAL/SYRINGE SC SCH ×3 (05:34→21:01)
[2023-09-30 06:00] VITALS: BP 125/74; TEMP 98.9; O2SAT 96
[2023-09-30 07:52] LABS: VANCOMYCIN RANDOM 15.5 UG/ML
[2023-09-30 07:58] LABS: ALBUMIN 2.3 G/DL (3.2-5.2); BILIRUBIN,TOTAL 0.5 MG/DL (0.3-1.2); CREATININE FOR GFR 1.81 MG/DL (0.70-1.30); GLOMERULAR FILTRATION RATE 41.5 (>56); POTASSIUM SERUM 3.6 MMOL/L (3.5-5.1); TOTAL PROTEIN 6.7 G/DL (5.7-8.2)
[2023-09-30] MEDS: BISACODYL 5MG TAB PO SCH (09:00)
[2023-09-30] MEDS: PANTOPRAZOLE 40MG VIAL IV SCH (09:48)
[2023-09-30] MEDS: DOCUSATE SODIUM 100MG CAPSULE PO SCH (09:48)
[2023-09-30] MEDS: GABAPENTIN 100 MG CAP PO SCH (09:48)
[2023-09-30] MEDS: VANCOMYCIN HCL 1,000 MG, VIAL MATE ADAPTER 1 EACH in D5W 250 ML IV SCH (12:50)
[2023-09-30 14:31] VITALS: BP 109/68; TEMP 99.3; O2SAT 96
[2023-09-30] MEDS: NS 1,000 ML IV SCH (17:24)
[2023-09-30 20:00] VITALS: BP 125/86; TEMP 98.4; O2SAT 95
[2023-10-01] VITALS (9 sets, daily range): BP systolic 107–137; BP diastolic 18–77; TEMP 96.8–103.5; O2SAT 95–97
[2023-10-01] MEDS ORDERED: MEROPENEM INJ 1 GM in IV 1 EA IV SCH (05:00)
[2023-10-01] MEDS ORDERED: LevoFLOXacin IV 750 MG in IV 1 EA IV SCH ×2 (05:00→17:00)
[2023-10-01] MEDS: HEPARIN SOD (PORCINE) 5000UNITS/ML 1ML VIAL/SYRINGE SC SCH ×3 (05:06→21:04)
[2023-10-01] MEDS: ACETAMINOPHEN TAB 650MG DOSE (2X325MG) PO PRN (06:26)
[2023-10-01] MEDS: DOCUSATE SODIUM 100MG CAPSULE PO SCH (08:34)
[2023-10-01] MEDS: GABAPENTIN 100 MG CAP PO SCH (08:34)
[2023-10-01] MEDS: BISACODYL 5MG TAB PO SCH (08:34)
[2023-10-01] MEDS: PANTOPRAZOLE 40MG VIAL IV SCH (08:35)
[2023-10-01] MEDS ORDERED: fentaNYL 100 MCG/2 ML INJECTION As Ordered ONE (10:06)
[2023-10-01] MEDS ORDERED: ISOVUE-300 61% 100ML VIAL As Ordered ONE (10:07)
[2023-10-01] MEDS ORDERED: LIDOCAINE 1% MDV 20ML VIAL As Ordered ONE (10:07)
[2023-10-01] MEDS ORDERED: MIDAZOLAM INJ 2MG/2ML VIAL As Ordered ONE (10:07)
[2023-10-01] MEDS: HYDROMORPHONE HCL 0.5 MG/ 0.5 ML SYRINGE IV PRN ×2 (13:33→19:38)
[2023-10-01] MEDS: NS 1,000 ML IV SCH (19:27)
[2023-10-01] MEDS: ONDANSETRON 4MG 2ML VIAL IV PRN (19:36)
[2023-10-02] VITALS (8 sets, daily range): BP systolic 93–107; BP diastolic 55–66; TEMP 97.2–102.3; O2SAT 96–99
[2023-10-02] MEDS: ACETAMINOPHEN TAB 650MG DOSE (2X325MG) PO PRN ×2 (02:33→11:41)
[2023-10-02] MEDS: NS 1,000 ML IV SCH (02:34)
[2023-10-02] MEDS: HEPARIN SOD (PORCINE) 5000UNITS/ML 1ML VIAL/SYRINGE SC SCH ×3 (05:24→21:14)
[2023-10-02 09:40] LABS: CALCIUM LEVEL 7.9 MG/DL (8.5-10.1); CREATININE FOR GFR 1.65 MG/DL (0.70-1.30); GLOMERULAR FILTRATION RATE 46.2 (>56); POTASSIUM SERUM 3.7 MMOL/L (3.5-5.1)
[2023-10-02] MEDS ORDERED: ACETAMINOPHEN 325 MG TAB As Ordered ONE (11:39)
[2023-10-02] MEDS ORDERED: LIDOCAINE 1% MDV 20ML VIAL As Ordered ONE (11:40)
[2023-10-02] MEDS ORDERED: fentaNYL 100 MCG/2 ML INJECTION As Ordered ONE (11:50)
[2023-10-02] MEDS ORDERED: MIDAZOLAM INJ 2MG/2ML VIAL As Ordered ONE (11:51)
[2023-10-02] MEDS: BISACODYL 5MG TAB PO SCH (13:27)
[2023-10-02] MEDS: PANTOPRAZOLE 40MG VIAL IV SCH (13:27)
[2023-10-02] MEDS: DOCUSATE SODIUM 100MG CAPSULE PO SCH (13:28)
[2023-10-02] MEDS: GABAPENTIN 100 MG CAP PO SCH (13:28)
[2023-10-02] MEDS: [UNRECOGNIZED DRUG - OTHER] TOP PRN (13:29)
[2023-10-02] MEDS: DICLOFENAC TOP PRN (13:29)
[2023-10-02] MEDS: CEFEPIME HCL 2 GM in D5W MINI-BAG PLUS 50 ML IV SCH (18:51)
[2023-10-03] VITALS (10 sets, daily range): BP systolic 90–104; BP diastolic 48–63; TEMP 98.1–103; O2SAT 95–99
[2023-10-03] MEDS: ONDANSETRON 4MG 2ML VIAL IV PRN (01:42)
[2023-10-03] MEDS: ACETAMINOPHEN TAB 650MG DOSE (2X325MG) PO PRN (01:55)
[2023-10-03] MEDS ORDERED: NS 1,000 ML IV SCH (04:25)
[2023-10-03] MEDS ORDERED: NS 1,000 ML IV ONE (04:25)
[2023-10-03] MEDS: HEPARIN SOD (PORCINE) 5000UNITS/ML 1ML VIAL/SYRINGE SC SCH ×3 (05:27→21:01)
[2023-10-03] MEDS: CEFEPIME HCL 2 GM in D5W MINI-BAG PLUS 50 ML IV SCH ×2 (05:46→17:30)
[2023-10-03 06:09] LABS: HEMATOCRIT 29.7 % (42.0-52.0); HEMOGLOBIN 9.1 g/dl (13.5-17.5); MEAN CORPUSCULAR HEMOGLOBIN 25.2 pg (27.0-33.0); MEAN CORPUSCULAR HGB CONC 30.6 g/dl (32.0-36.5); MEAN CORPUSCULAR VOLUME 82.3 fl (80.0-96.0); PLATELET COUNT, AUTOMATED 256 10^3/uL (150-450); RED BLOOD COUNT 3.61 10^6/uL (4.30-6.10); WHITE BLOOD COUNT 6.2 10^3/uL (4.0-10.0)
[2023-10-03 06:39] LABS: ALBUMIN 1.8 G/DL (3.2-5.2); CALCIUM LEVEL 6.9 MG/DL (8.5-10.1); CREATININE FOR GFR 1.34 MG/DL (0.70-1.30); GLOMERULAR FILTRATION RATE 58.7 (>56); PHOSPHORUS LEVEL 3.1 MG/DL (2.5-4.9)
[2023-10-03] MEDS ORDERED: FLUCONAZOLE 50MG TABLET PO SCH (09:00)
[2023-10-03] MEDS ORDERED: POTASSIUM CHLORIDE 10MEQ SR TABLET PO ONE ×2 (09:00→11:00)
[2023-10-03] MEDS: GABAPENTIN 100 MG CAP PO SCH (10:08)
[2023-10-03] MEDS: BISACODYL 5MG TAB PO SCH (10:08)
[2023-10-03] MEDS: DOCUSATE SODIUM 100MG CAPSULE PO SCH (10:09)
[2023-10-03] MEDS: [UNRECOGNIZED DRUG - OTHER] TOP PRN (10:19)
[2023-10-03] MEDS: DICLOFENAC TOP PRN (10:19)
[2023-10-03] MEDS: PANTOPRAZOLE 40MG VIAL IV SCH (10:19)
[2023-10-03] MEDS: NS 1,000 ML IV SCH (11:25)
[2023-10-03] MEDS: FLUCONAZOLE 100 MG TAB PO SCH (12:51)
[2023-10-04] MEDS: NS 1,000 ML IV SCH (00:59)
[2023-10-04 01:56] VITALS: BP 95/70; TEMP 99.7; O2SAT 95
[2023-10-04 05:13] VITALS: BP 100/64; TEMP 97.9; O2SAT 96
[2023-10-04] MEDS: CEFEPIME HCL 2 GM in D5W MINI-BAG PLUS 50 ML IV SCH ×2 (05:19→18:18)
[2023-10-04] MEDS: HEPARIN SOD (PORCINE) 5000UNITS/ML 1ML VIAL/SYRINGE SC SCH ×3 (05:20→21:17)
[2023-10-04 07:45] LABS: BASO % 0.4 % (0.0-1.0); EOS # 0.3 10^3/uL (0.0-0.5); HEMATOCRIT 30.5 % (42.0-52.0); HEMOGLOBIN 9.1 g/dl (13.5-17.5); LYMPH # 1.5 10^3/uL (1.5-5.0); LYMPH % 22.7 % (24.0-44.0); MEAN CORPUSCULAR HEMOGLOBIN 24.7 pg (27.0-33.0); MEAN CORPUSCULAR HGB CONC 29.8 g/dl (32.0-36.5); MEAN CORPUSCULAR VOLUME 82.9 fl (80.0-96.0); MONO # 0.9 10^3/uL (0.0-0.8); MONO % 13.9 % (2.0-8.0); NEUTROPHILS # 3.9 10^3/uL (1.5-8.5); NEUTROPHILS % 58.6 % (36.0-66.0); PLATELET COUNT, AUTOMATED 274 10^3/uL (150-450); RED BLOOD COUNT 3.68 10^6/uL (4.30-6.10); WHITE BLOOD COUNT 6.7 10^3/uL (4.0-10.0)
[2023-10-04 08:04] LABS: ALBUMIN 1.9 G/DL (3.2-5.2); ALKALINE PHOSPHATASE 61 U/L (46-116); ALT/SGPT 56 U/L (7.0-40); AST/SGOT 45 U/L (<34); BILIRUBIN,TOTAL 0.2 MG/DL (0.3-1.2); BLOOD UREA NITROGEN 10 MG/DL (9-23); CALCIUM LEVEL 7.8 MG/DL (8.5-10.1); CARBON DIOXIDE LEVEL 27 MMOL/L (20-31); CHLORIDE LEVEL 107 MMOL/L (98-107); CREATININE FOR GFR 1.16 MG/DL (0.70-1.30); GLOMERULAR FILTRATION RATE > 60.0 (>56); GLUCOSE, FASTING 107 MG/DL (60-100); MAGNESIUM LEVEL 1.4 MG/DL (1.8-2.4); SODIUM LEVEL 141 MMOL/L (136-145); TOTAL PROTEIN 5.9 G/DL (5.7-8.2)
[2023-10-04 10:00] VITALS: BP 110/80; TEMP 98.1; O2SAT 98
[2023-10-04] MEDS: DOCUSATE SODIUM 100MG CAPSULE PO SCH (10:01)
[2023-10-04] MEDS: GABAPENTIN 100 MG CAP PO SCH (10:02)
[2023-10-04] MEDS: FLUCONAZOLE 100 MG TAB PO SCH (10:02)
[2023-10-04] MEDS: BISACODYL 5MG TAB PO SCH (10:02)
[2023-10-04] MEDS: MAG SULF 1GM/100ML (MAG RUN) 1 GM in IV 1 EA IV SCH ×3 (10:42→12:58)
[2023-10-04 14:00] VITALS: BP 96/64; TEMP 98.1; O2SAT 96
[2023-10-04] MEDS: NORCO, ANEXSIA 5/325MG TABLET (HYDROcodone/ACETAMINOPHEN) PO PRN (15:09)
[2023-10-04 18:00] VITALS: BP 110/78; TEMP 98.1; O2SAT 98
[2023-10-04 20:27] VITALS: BP 102/58; TEMP 97.7; O2SAT 97
[2023-10-05 02:00] VITALS: BP 108/76; TEMP 98; O2SAT 96
[2023-10-05] MEDS: HEPARIN SOD (PORCINE) 5000UNITS/ML 1ML VIAL/SYRINGE SC SCH (05:58)
[2023-10-05] MEDS: CEFEPIME HCL 2 GM in D5W MINI-BAG PLUS 50 ML IV SCH (06:05)
[2023-10-05 06:47] VITALS: BP 105/73; TEMP 98.1; O2SAT 99
[2023-10-05 06:48] LABS: BASO # 0.1 10^3/uL (0.0-0.2); BASO % 0.7 % (0.0-1.0); EOS # 0.3 10^3/uL (0.0-0.5); EOS % 4.5 % (0.0-3.0); HEMATOCRIT 33.6 % (42.0-52.0); LYMPH # 1.7 10^3/uL (1.5-5.0); LYMPH % 24.4 % (24.0-44.0); MEAN CORPUSCULAR HEMOGLOBIN 24.4 pg (27.0-33.0); MEAN CORPUSCULAR HGB CONC 29.8 g/dl (32.0-36.5); MEAN CORPUSCULAR VOLUME 82.2 fl (80.0-96.0); MONO # 0.5 10^3/uL (0.0-0.8); MONO % 7.7 % (2.0-8.0); NEUTROPHILS # 4.3 10^3/uL (1.5-8.5); NEUTROPHILS % 62.3 % (36.0-66.0); PLATELET COUNT, AUTOMATED 311 10^3/uL (150-450); RED BLOOD COUNT 4.09 10^6/uL (4.30-6.10); WHITE BLOOD COUNT 6.9 10^3/uL (4.0-10.0)
[2023-10-05 07:47] LABS: ALBUMIN 2.1 G/DL (3.2-5.2); ALKALINE PHOSPHATASE 75 U/L (46-116); ALT/SGPT 112 U/L (7.0-40); AST/SGOT 134 U/L (<34); BILIRUBIN,TOTAL 0.2 MG/DL (0.3-1.2); BLOOD UREA NITROGEN 12 MG/DL (9-23); CALCIUM LEVEL 8.2 MG/DL (8.5-10.1); CARBON DIOXIDE LEVEL 31 MMOL/L (20-31); CHLORIDE LEVEL 105 MMOL/L (98-107); CREATININE FOR GFR 1.03 MG/DL (0.70-1.30); GLOMERULAR FILTRATION RATE > 60.0 (>56); GLUCOSE, FASTING 101 MG/DL (60-100); MAGNESIUM LEVEL 1.9 MG/DL (1.8-2.4); POTASSIUM SERUM 3.8 MMOL/L (3.5-5.1); SODIUM LEVEL 142 MMOL/L (136-145); TOTAL PROTEIN 6.3 G/DL (5.7-8.2)
[2023-10-05] MEDS: BISACODYL 5MG TAB PO SCH (09:17)
[2023-10-05] MEDS: FLUCONAZOLE 100 MG TAB PO SCH (09:17)
[2023-10-05] MEDS: GABAPENTIN 100 MG CAP PO SCH (09:17)
[2023-10-05] MEDS: DOCUSATE SODIUM 100MG CAPSULE PO SCH (09:17)
[2023-10-05 10:00] VITALS: BP 105/73; TEMP 97.7; O2SAT 98
[2023-10-05 12:19] LABS: HEMATOCRIT 34.3 % (42.0-52.0); HEMOGLOBIN 10.4 g/dl (13.5-17.5)
[2023-10-05 14:00] VITALS: BP 101/67; TEMP 98.1; O2SAT 98
[2023-10-05 18:04] LABS: HEMATOCRIT 34.2 % (42.0-52.0); HEMOGLOBIN 10.5 g/dl (13.5-17.5)
[2023-10-05 18:27] VITALS: BP 106/72; TEMP 98.1; O2SAT 97
[2023-10-05 19:51] VITALS: BP 106/70; TEMP 98.1; O2SAT 98
[2023-10-05] MEDS: ACETAMINOPHEN TAB 650MG DOSE (2X325MG) PO PRN (21:59)
[2023-10-06 02:01] VITALS: BP 122/91; TEMP 98.2; O2SAT 98
[2023-10-06 05:34] LABS: BASO % 0.3 % (0.0-1.0); EOS # 0.3 10^3/uL (0.0-0.5); EOS % 3.7 % (0.0-3.0); HEMATOCRIT 34.9 % (42.0-52.0); HEMOGLOBIN 10.7 g/dl (13.5-17.5); LYMPH # 2.1 10^3/uL (1.5-5.0); LYMPH % 24.3 % (24.0-44.0); MEAN CORPUSCULAR HEMOGLOBIN 24.8 pg (27.0-33.0); MEAN CORPUSCULAR HGB CONC 30.7 g/dl (32.0-36.5); MEAN CORPUSCULAR VOLUME 80.8 fl (80.0-96.0); MONO # 0.7 10^3/uL (0.0-0.8); MONO % 7.4 % (2.0-8.0); NEUTROPHILS # 5.5 10^3/uL (1.5-8.5); NEUTROPHILS % 63.4 % (36.0-66.0); PLATELET COUNT, AUTOMATED 340 10^3/uL (150-450); RED BLOOD COUNT 4.32 10^6/uL (4.30-6.10); WHITE BLOOD COUNT 8.7 10^3/uL (4.0-10.0)
[2023-10-06 06:00] LABS: ALBUMIN 2.3 G/DL (3.2-5.2); ALKALINE PHOSPHATASE 79 U/L (46-116); ALT/SGPT 98 U/L (7.0-40); AST/SGOT 77 U/L (<34); BILIRUBIN,TOTAL 0.3 MG/DL (0.3-1.2); BLOOD UREA NITROGEN 12 MG/DL (9-23); CALCIUM LEVEL 8.5 MG/DL (8.5-10.1); CARBON DIOXIDE LEVEL 30 MMOL/L (20-31); CHLORIDE LEVEL 102 MMOL/L (98-107); CREATININE FOR GFR 0.92 MG/DL (0.70-1.30); GLOMERULAR FILTRATION RATE > 60.0 (>56); GLUCOSE, FASTING 86 MG/DL (60-100); MAGNESIUM LEVEL 1.6 MG/DL (1.8-2.4); POTASSIUM SERUM 3.7 MMOL/L (3.5-5.1); SODIUM LEVEL 140 MMOL/L (136-145); TOTAL PROTEIN 6.6 G/DL (5.7-8.2)
[2023-10-06] MEDS ORDERED: LevoFLOXacin 750 MG TABLET PO SCH (06:00)
[2023-10-06 06:44] VITALS: BP 120/69; TEMP 98.6; O2SAT 97
[2023-10-06] MEDS ORDERED: MAG SULF 1GM/100ML (MAG RUN) 1 GM in IV 1 EA IV SCH (08:00)
[2023-10-06] MEDS: DOCUSATE SODIUM 100MG CAPSULE PO SCH (08:33)
[2023-10-06] MEDS: BISACODYL 5MG TAB PO SCH (08:33)
[2023-10-06] MEDS: GABAPENTIN 100 MG CAP PO SCH (08:33)
[2023-10-06] MEDS: FLUCONAZOLE 100 MG TAB PO SCH (08:33)
[2023-10-06] MEDS ORDERED: MAGNESIUM OXIDE 400MG TAB (MAG-OX) PO ONE (09:00)
[2023-10-06] MEDS ORDERED: LEVO1TAB40 PO (10:54)
[2023-10-06] MEDS ORDERED: FLUC100T3 PO (10:54)
[2023-10-06] MEDS: NORCO, ANEXSIA 5/325MG TABLET (HYDROcodone/ACETAMINOPHEN) PO PRN (12:13)
== END 2023-10-06 12:30 | disposition home health service (06) | DRG 673 ==
LOC: M ED 15:05 → EDBD 15:05 → M ED INP 19:52 → M MS4PR 21:42 → M MS5PR 10-03 18:20
PROVIDERS: ADMIT Internal Medicine; ATTEND Internal Medicine
PROC: 0T9130Z Drainage of Left Kidney with Drainage Device, Percutaneous Approach (ICD-10-PCS; 2023-10-01)
PROC: 0T9030Z Drainage of Right Kidney with Drainage Device, Percutaneous Approach (ICD-10-PCS; 2023-10-01)
PROC: 07BC3ZX Excision of Pelvis Lymphatic, Percutaneous Approach, Diagnostic (ICD-10-PCS; principal; 2023-10-02 09:00)
DX: T83.511A Infection and inflammatory reaction due to indwelling urethral catheter, initial encounter (principal); A41.9 Sepsis, unspecified organism; N17.9 Acute kidney failure, unspecified; N13.30 Unspecified hydronephrosis; N39.0 Urinary tract infection, site not specified; C67.9 Malignant neoplasm of bladder, unspecified; E87.6 Hypokalemia; R74.01 Elevation of levels of liver transaminase levels; F17.220 Nicotine dependence, chewing tobacco, uncomplicated; E83.42 Hypomagnesemia; R59.0 Localized enlarged lymph nodes; G80.9 Cerebral palsy, unspecified; J45.909 Unspecified asthma, uncomplicated; I10 Essential (primary) hypertension; F41.9 Anxiety disorder, unspecified; D86.9 Sarcoidosis, unspecified; K80.20 Calculus of gallbladder without cholecystitis without obstruction; Z79.899 Other long term (current) drug therapy; Z88.0 Allergy status to penicillin; Z88.5 Allergy status to narcotic agent; Z20.822 Contact with and (suspected) exposure to COVID-19

== ENCOUNTER → 2023-10-15 | Outpatient (CLI) | payer MEDICARE, MEDICAID ==
[~2023-10-15] MED LIST changes: +ACET-897 PO; +ALPR0.25 PO; +BISA1TAB PO; +DOCU100C16 PO; +FLUC100T3 PO; +LEVO1TAB40 PO; +LIDO76.52 TOP; +ONDA-83 PO; +POTA-149 PO
== END ==
LOC: M ONCR 15:19
PROVIDERS: ATTEND General Practice
DX: C67.9 Malignant neoplasm of bladder, unspecified (principal); G80.9 Cerebral palsy, unspecified; F17.220 Nicotine dependence, chewing tobacco, uncomplicated; Z71.2 Person consulting for explanation of examination or test findings; Z88.0 Allergy status to penicillin; Z88.5 Allergy status to narcotic agent; Z79.51 Long term (current) use of inhaled steroids; Z79.899 Other long term (current) drug therapy; Z93.6 Other artificial openings of urinary tract status

== ENCOUNTER 2023-10-23 12:35 | Outpatient (RCR) | payer MEDICARE ==
[~2023-10-23 12:35] MED LIST changes: +DEXA4TA PO
== END 2023-10-25 ==
LOC: M ONCR 12:35
PROVIDERS: ATTEND General Practice
DX: Z51.0 Encounter for antineoplastic radiation therapy (principal); C67.8 Malignant neoplasm of overlapping sites of bladder

== ENCOUNTER 2023-10-28 12:55 | Outpatient (RCR) | payer MEDICARE ==
[2023-11-17] MEDS ORDERED: PROC10TA5 PO ×2 (16:43→17:33)
[2023-11-17] MEDS ORDERED: LIDO30CR18 TOP (16:43)
[2023-11-17] MEDS ORDERED: ONDA8TAB8 PO (16:43)
[2023-11-17] MEDS ORDERED: POTA-149 PO (17:31)
[2023-11-17] MEDS ORDERED: ONDA-83 PO (17:32)
[2023-11-18] MEDS ORDERED: LIDO30CR18 TOP (14:21)
== END 2023-11-25 ==
LOC: M ONCR 12:55
PROVIDERS: ATTEND General Practice
DX: Z51.0 Encounter for antineoplastic radiation therapy (principal); C67.8 Malignant neoplasm of overlapping sites of bladder

== ENCOUNTER 2023-10-30 12:59 | Emergency (ER) | payer MEDICAID, MEDICARE ==
[~2023-10-30] VITALS: Ht 160 cm; Wt 111.4 kg
[2023-10-30] MEDS ORDERED: ISOVUE-300 61% 100ML VIAL As Ordered ONE (15:14)
[2023-10-30] MEDS ORDERED: LIDOCAINE 1% MDV 20ML VIAL As Ordered ONE (15:39)
[2023-10-30 17:08] LABS: BASO % 0.1 % (0.0-1.0); EOS % 0.3 % (0.0-3.0); HEMATOCRIT 37.7 % (42.0-52.0); HEMOGLOBIN 11.8 g/dl (13.5-17.5); LYMPH # 0.7 10^3/uL (1.5-5.0); LYMPH % 4.9 % (24.0-44.0); MEAN CORPUSCULAR HEMOGLOBIN 24.7 pg (27.0-33.0); MEAN CORPUSCULAR HGB CONC 31.3 g/dl (32.0-36.5); MEAN CORPUSCULAR VOLUME 78.9 fl (80.0-96.0); MONO # 0.9 10^3/uL (0.0-0.8); MONO % 6.7 % (2.0-8.0); NEUTROPHILS # 11.8 10^3/uL (1.5-8.5); NEUTROPHILS % 87.3 % (36.0-66.0); PLATELET COUNT, AUTOMATED 324 10^3/uL (150-450); RED BLOOD COUNT 4.78 10^6/uL (4.30-6.10); WHITE BLOOD COUNT 13.5 10^3/uL (4.0-10.0)
[2023-10-30 17:30] LABS: BLOOD UREA NITROGEN 31 MG/DL (9-23); CALCIUM LEVEL 8.3 MG/DL (8.5-10.1); CARBON DIOXIDE LEVEL 27 MMOL/L (20-31); CHLORIDE LEVEL 104 MMOL/L (98-107); CREATININE FOR GFR 1.06 MG/DL (0.70-1.30); GLOMERULAR FILTRATION RATE > 60.0 (>56); GLUCOSE, FASTING 98 MG/DL (60-100); POTASSIUM SERUM 4.3 MMOL/L (3.5-5.1); SODIUM LEVEL 138 MMOL/L (136-145)
[2023-10-30 20:15] VITALS: BP 109/76; O2SAT 94
[2023-10-30 20:16] VITALS: TEMP 98
== END 2023-10-30 21:18 | disposition home or self-care (01) ==
LOC: EDBD 12:59 → M ED 12:59
DX: T83.022A Displacement of nephrostomy catheter, initial encounter (principal); X58.XXXA Exposure to other specified factors, initial encounter; Y92.89 Other specified places as the place of occurrence of the external cause; Y93.89 Activity, other specified; Y99.8 Other external cause status; I10 Essential (primary) hypertension; J45.909 Unspecified asthma, uncomplicated; G80.9 Cerebral palsy, unspecified; M54.50 Low back pain, unspecified; C67.9 Malignant neoplasm of bladder, unspecified; C79.82 Secondary malignant neoplasm of genital organs; Z88.0 Allergy status to penicillin; Z88.5 Allergy status to narcotic agent; Z79.899 Other long term (current) drug therapy
CPT/HCPCS: 36415; 50432; 74176; 76000; 80048; 85025; 99284; Q9967

== ENCOUNTER → 2023-11-09 | Outpatient (CLI) | payer MEDICARE ==
[~2023-11-09] MED LIST changes: +ISOVUE-300 61% 100ML VIAL As Ordered ONE; +LIDOCAINE 1% MDV 20ML VIAL As Ordered ONE; +MIDAZOLAM INJ 2MG/2ML VIAL As Ordered ONE; +NS 1,000 ML IV SCH; +VANCOMYCIN 1000MG/20ML VIAL As Ordered ONE; +VANCOMYCIN HCL 1,000 MG, VIAL MATE ADAPTER 1 EACH in D5W 250 ML IV ONE; +fentaNYL 100 MCG/2 ML INJECTION As Ordered ONE
[2023-11-09 14:27] VITALS: TEMP 97.8
[2023-11-09 18:39] VITALS: BP 123/85; O2SAT 97
== END ==
LOC: M IRPRO 14:19
PROVIDERS: ATTEND Urology
DX: C67.9 Malignant neoplasm of bladder, unspecified (principal); N18.6 End stage renal disease
CPT/HCPCS: 50432; 81000; 81015; 87088; 87186; 99152; 99153; C1729; C1894; J2250; J3010; J3370; Q9967

== ENCOUNTER → 2023-11-13 | Outpatient (CLI) | payer MEDICARE ==
[~2023-11-13] VITALS: Ht 160 cm; Wt 68.0 kg
[~2023-11-13] MED LIST changes: -ISOVUE-300 61% 100ML VIAL As Ordered ONE; +LIDOCAINE W/EPINEPHRINE 1% 20ML VIAL As Ordered ONE; -NS 1,000 ML IV SCH; -VANCOMYCIN HCL 1,000 MG, VIAL MATE ADAPTER 1 EACH in D5W 250 ML IV ONE; +VANCOMYCIN HCL 1,000 MG, VIAL MATE ADAPTER 1 EACH in NS 250 ML IV ONE
[2023-11-13 13:20] VITALS: TEMP 98.3
[2023-11-13 15:45] VITALS: BP 114/67; O2SAT 97
== END ==
LOC: M IRPRO 13:00
PROVIDERS: ATTEND Specialist
DX: C67.9 Malignant neoplasm of bladder, unspecified (principal)
CPT/HCPCS: 36561; 99152; 99153; J2250; J3010; J3370

== ENCOUNTER → 2023-11-25 | Outpatient (REF) | payer MEDICARE, MEDICAID ==
[~2023-11-25] MED LIST changes: +BACTDSTA PO; +LIDO30CR18 TOP; -LIDOCAINE 1% MDV 20ML VIAL As Ordered ONE; -LIDOCAINE W/EPINEPHRINE 1% 20ML VIAL As Ordered ONE; -MIDAZOLAM INJ 2MG/2ML VIAL As Ordered ONE; +ONDA8TAB8 PO; +PROC10TA5 PO; +SERT50TA29 PO; -VANCOMYCIN 1000MG/20ML VIAL As Ordered ONE; -VANCOMYCIN HCL 1,000 MG, VIAL MATE ADAPTER 1 EACH in NS 250 ML IV ONE; -fentaNYL 100 MCG/2 ML INJECTION As Ordered ONE
== END ==
LOC: M LABSMT 11:00
PROVIDERS: ATTEND Urology
DX: C67.9 Malignant neoplasm of bladder, unspecified (principal)

== ENCOUNTER 2023-11-27 14:26 | Inpatient (IN) | payer MEDICAID, MEDICARE, OTHER ==
[~2023-11-27] VITALS: Ht 162.6 cm; Wt 70.7 kg
[~2023-11-27 14:26] MED LIST changes: -BACTDSTA PO; -SERT50TA29 PO
[2023-11-27] MEDS: LIDOCAINE 4% CREAM 5GM (LMX4) TOP ONE (16:45)
[2023-11-27] MEDS: NORCO, ANEXSIA 5/325MG TABLET (HYDROcodone/ACETAMINOPHEN) PO ONE (17:01)
[2023-11-27] MEDS: SODIUM CHLORIDE 0.9% INJ 10 ML SYR IV SCH (17:02)
[2023-11-27 17:07] LABS: BASO % 0.2 % (0.0-1.0); EOS % 0.1 % (0.0-3.0); HEMOGLOBIN 11.7 g/dl (13.5-17.5); LYMPH # 1.1 10^3/uL (1.5-5.0); LYMPH % 9.3 % (24.0-44.0); MEAN CORPUSCULAR HEMOGLOBIN 24.1 pg (27.0-33.0); MEAN CORPUSCULAR HGB CONC 30.8 g/dl (32.0-36.5); MEAN CORPUSCULAR VOLUME 78.4 fl (80.0-96.0); MONO # 1.3 10^3/uL (0.0-0.8); MONO % 11.8 % (2.0-8.0); NEUTROPHILS # 8.8 10^3/uL (1.5-8.5); NEUTROPHILS % 77.5 % (36.0-66.0); PLATELET COUNT, AUTOMATED 372 10^3/uL (150-450); RED BLOOD COUNT 4.85 10^6/uL (4.30-6.10); WHITE BLOOD COUNT 11.3 10^3/uL (4.0-10.0)
[2023-11-27 17:26] LABS: C REACTIVE PROTEIN QUANTITATIV 9.1 MG/DL (<1.0)
[2023-11-27 17:29] LABS: ALBUMIN 2.4 G/DL (3.2-5.2); BILIRUBIN,DIRECT 0.1 MG/DL (<0.4); BILIRUBIN,TOTAL 0.4 MG/DL (0.3-1.2); CREATININE FOR GFR 1.45 MG/DL (0.70-1.30); GLOMERULAR FILTRATION RATE 53.6 (>56); TOTAL PROTEIN 6.7 G/DL (5.7-8.2)
[2023-11-27] MEDS: MEROPENEM INJ 1 GM in IV 1 EA IV ONE (17:29)
[2023-11-27] MEDS ORDERED: VANCOMYCIN HCL 1,500 MG in NS 250 ML IV ONE (17:35)
[2023-11-27 17:42] LABS: ERYTHROCYTE SEDIMENTATION RATE > 130 mm/hr (0-20)
[2023-11-27 17:49] LABS: RSV AMPLIFICATION NEGATIVE (NEGATIVE)
[2023-11-27] MEDS: NS 2,160 ML in IV 1 EA IV ONE (17:49)
[2023-11-27] MEDS: VANCOMYCIN HCL 750 MG, VIAL MATE ADAPTER 1 EACH in D5W 250 ML IV ONE ×2 (18:15→20:10)
[2023-11-27] MEDS ORDERED: MED REC IN PROGRESS XX SCH (18:45)
[2023-11-27] MEDS ORDERED: ACETAMINOPHEN TAB 650MG DOSE (2X325MG) PO PRN (19:35)
[2023-11-27] MEDS ORDERED: BACL10TA2 PO (19:50)
[2023-11-27] MEDS ORDERED: SERT50TA29 PO (19:50)
[2023-11-27] MEDS ORDERED: BACTDSTA PO (19:50)
[2023-11-27] MEDS ORDERED: HOME MED LIST COMPLETE! XX SCH (19:55)
[2023-11-27] MEDS: NS 1,000 ML IV SCH (20:18)
[2023-11-27] MEDS: HEPARIN SOD (PORCINE) 5000UNITS/ML 1ML VIAL/SYRINGE SQ SCH (20:40)
[2023-11-27] MEDS: DOCUSATE SODIUM 100MG CAPSULE PO SCH (20:40)
[2023-11-27 22:04] VITALS: BP 99/66; TEMP 98.8; O2SAT 97
[2023-11-28 06:00] VITALS: BP 104/74; TEMP 99.5; O2SAT 96
[2023-11-28] MEDS: MEROPENEM INJ 1 GM in IV 1 EA IV SCH (06:02)
[2023-11-28 07:36] LABS: HEMATOCRIT 32.4 % (42.0-52.0); HEMOGLOBIN 9.9 g/dl (13.5-17.5); MEAN CORPUSCULAR HEMOGLOBIN 23.7 pg (27.0-33.0); MEAN CORPUSCULAR HGB CONC 30.6 g/dl (32.0-36.5); MEAN CORPUSCULAR VOLUME 77.7 fl (80.0-96.0); PLATELET COUNT, AUTOMATED 338 10^3/uL (150-450); RED BLOOD COUNT 4.17 10^6/uL (4.30-6.10); WHITE BLOOD COUNT 8.1 10^3/uL (4.0-10.0)
[2023-11-28 08:16] LABS: PROCALCITONIN 0.18 ng/ml
[2023-11-28 08:20] LABS: ALKALINE PHOSPHATASE 65 U/L (46-116); ALT/SGPT 36 U/L (7.0-40); AST/SGOT 17 U/L (<34); BILIRUBIN,TOTAL 0.5 MG/DL (0.3-1.2); BLOOD UREA NITROGEN 16 MG/DL (9-23); CALCIUM LEVEL 7.6 MG/DL (8.5-10.1); CARBON DIOXIDE LEVEL 24 MMOL/L (20-31); CHLORIDE LEVEL 108 MMOL/L (98-107); CREATININE FOR GFR 1.23 MG/DL (0.70-1.30); GLOMERULAR FILTRATION RATE > 60.0 (>56); GLUCOSE, FASTING 97 MG/DL (60-100); MAGNESIUM LEVEL 1.6 MG/DL (1.8-2.4); SODIUM LEVEL 140 MMOL/L (136-145); TOTAL PROTEIN 5.8 G/DL (5.7-8.2)
[2023-11-28 13:28] VITALS: BP 142/79; TEMP 99; O2SAT 95
[2023-11-28 16:11] VITALS: BP 144/80; TEMP 98.5; O2SAT 80; O2SAT 90
[2023-11-28 16:41] VITALS: BP 146/84; TEMP 98.5; O2SAT 92
[2023-11-28] MEDS: ONDANSETRON 4MG ORAL DISINTEGRATING TAB PO PRN (20:04)
[2023-11-28] MEDS: traMADol 50 MG TAB PO PRN (20:09)
[2023-11-28] MEDS: MAG SULF 1GM/100ML (MAG RUN) 1 GM in IV 1 EA IV SCH (20:22)
[2023-11-28 22:00] VITALS: BP 116/74; TEMP 99.1; O2SAT 95
[2023-11-28] MEDS: BACLOFEN 10 MG TAB PO SCH (22:16)
[2023-11-28] MEDS: GABAPENTIN 100 MG CAP PO SCH (22:17)
[2023-11-29 05:37] VITALS: BP 101/66; TEMP 97.5; O2SAT 91
[2023-11-29] MEDS ORDERED: SODIUM CHLORIDE 0.9% INJ 10 ML SYR IV PRN (06:05)
[2023-11-29 07:18] LABS: BASO % 0.3 % (0.0-1.0); EOS # 0.2 10^3/uL (0.0-0.5); EOS % 2.8 % (0.0-3.0); HEMATOCRIT 34.6 % (42.0-52.0); HEMOGLOBIN 10.4 g/dl (13.5-17.5); LYMPH # 0.9 10^3/uL (1.5-5.0); MEAN CORPUSCULAR HEMOGLOBIN 23.8 pg (27.0-33.0); MEAN CORPUSCULAR HGB CONC 30.1 g/dl (32.0-36.5); MEAN CORPUSCULAR VOLUME 79.2 fl (80.0-96.0); MONO # 0.8 10^3/uL (0.0-0.8); MONO % 11.3 % (2.0-8.0); NEUTROPHILS # 4.9 10^3/uL (1.5-8.5); NEUTROPHILS % 71.7 % (36.0-66.0); PLATELET COUNT, AUTOMATED 327 10^3/uL (150-450); RED BLOOD COUNT 4.37 10^6/uL (4.30-6.10); WHITE BLOOD COUNT 6.8 10^3/uL (4.0-10.0)
[2023-11-29] MEDS: NS 1,000 ML IV ONE (07:49)
[2023-11-29] MEDS: SERTRALINE HCL 50 MG TAB PO SCH (07:51)
[2023-11-29] MEDS: SODIUM CHLORIDE 0.9% INJ 10 ML SYR IV SCH (07:52)
[2023-11-29 08:10] LABS: BLOOD UREA NITROGEN 10 MG/DL (9-23); CALCIUM LEVEL 8.1 MG/DL (8.5-10.1); CARBON DIOXIDE LEVEL 25 MMOL/L (20-31); CHLORIDE LEVEL 103 MMOL/L (98-107); CREATININE FOR GFR 1.08 MG/DL (0.70-1.30); GLOMERULAR FILTRATION RATE > 60.0 (>56); GLUCOSE, FASTING 117 MG/DL (60-100); POTASSIUM SERUM 3.4 MMOL/L (3.5-5.1); SODIUM LEVEL 137 MMOL/L (136-145)
[2023-11-29 14:14] VITALS: BP 103/75; TEMP 98.8; O2SAT 95
[2023-11-29] MEDS: CEPACOL LOZENGE PO PRN (18:07)
[2023-11-29 20:14] VITALS: BP 100/76; TEMP 98.6; O2SAT 96
[2023-11-29] MEDS: POTASSIUM CHLORIDE 10MEQ SR TABLET PO SCH (20:54)
[2023-11-30 05:42] VITALS: BP 94/66; TEMP 98.2; O2SAT 97
[2023-11-30 06:27] LABS: BASO % 0.5 % (0.0-1.0); EOS # 0.2 10^3/uL (0.0-0.5); EOS % 2.9 % (0.0-3.0); HEMATOCRIT 36.6 % (42.0-52.0); HEMOGLOBIN 10.8 g/dl (13.5-17.5); LYMPH # 0.8 10^3/uL (1.5-5.0); LYMPH % 13.4 % (24.0-44.0); MEAN CORPUSCULAR HEMOGLOBIN 23.9 pg (27.0-33.0); MEAN CORPUSCULAR HGB CONC 29.5 g/dl (32.0-36.5); MONO # 0.6 10^3/uL (0.0-0.8); MONO % 10.3 % (2.0-8.0); NEUTROPHILS # 4.4 10^3/uL (1.5-8.5); NEUTROPHILS % 72.2 % (36.0-66.0); PLATELET COUNT, AUTOMATED 319 10^3/uL (150-450); RED BLOOD COUNT 4.52 10^6/uL (4.30-6.10); WHITE BLOOD COUNT 6.1 10^3/uL (4.0-10.0)
[2023-11-30 07:49] LABS: BLOOD UREA NITROGEN 8 MG/DL (9-23); CALCIUM LEVEL 7.9 MG/DL (8.5-10.1); CARBON DIOXIDE LEVEL 27 MMOL/L (20-31); CHLORIDE LEVEL 109 MMOL/L (98-107); CREATININE FOR GFR 1.02 MG/DL (0.70-1.30); GLOMERULAR FILTRATION RATE > 60.0 (>56); GLUCOSE, FASTING 92 MG/DL (60-100); POTASSIUM SERUM 3.9 MMOL/L (3.5-5.1); SODIUM LEVEL 141 MMOL/L (136-145)
[2023-11-30] MEDS: NYSTATIN 500,000U/5ML SUSP UDC SS SCH (12:40)
[2023-11-30 14:00] VITALS: BP 102/68; TEMP 98.4; O2SAT 95
[2023-11-30] MEDS ORDERED: VANCOMYCIN HCL 1,000 MG, VIAL MATE ADAPTER 1 EACH in D5W 250 ML IV SCH (15:55)
[2023-11-30] MEDS: VANCOMYCIN HCL 750 MG, VIAL MATE ADAPTER 1 EACH in D5W 250 ML IV ONE (17:08)
[2023-11-30] MEDS: VANCOMYCIN HCL 1,000 MG, VIAL MATE ADAPTER 1 EACH in D5W 250 ML IV ONE (18:36)
[2023-11-30 20:50] VITALS: BP 100/70; TEMP 98.2; O2SAT 7; O2SAT 96
[2023-12-01] MEDS: VANCOMYCIN HCL 1,000 MG, VIAL MATE ADAPTER 1 EACH in D5W 250 ML IV SCH (03:44)
[2023-12-01 05:00] VITALS: BP 94/64; TEMP 97.9; O2SAT 95
[2023-12-01] MEDS: CEFEPIME HCL 2 GM in D5W MINI-BAG PLUS 50 ML IV SCH (06:00)
[2023-12-01 06:35] LABS: BASO % 0.5 % (0.0-1.0); EOS # 0.2 10^3/uL (0.0-0.5); EOS % 3.1 % (0.0-3.0); HEMATOCRIT 35.7 % (42.0-52.0); HEMOGLOBIN 10.6 g/dl (13.5-17.5); LYMPH % 15.7 % (24.0-44.0); MEAN CORPUSCULAR HGB CONC 29.7 g/dl (32.0-36.5); MEAN CORPUSCULAR VOLUME 80.8 fl (80.0-96.0); MONO # 0.7 10^3/uL (0.0-0.8); MONO % 11.5 % (2.0-8.0); NEUTROPHILS # 4.2 10^3/uL (1.5-8.5); NEUTROPHILS % 68.6 % (36.0-66.0); PLATELET COUNT, AUTOMATED 311 10^3/uL (150-450); RED BLOOD COUNT 4.42 10^6/uL (4.30-6.10); WHITE BLOOD COUNT 6.2 10^3/uL (4.0-10.0)
[2023-12-01 07:00] LABS: BLOOD UREA NITROGEN 9 MG/DL (9-23); CARBON DIOXIDE LEVEL 26 MMOL/L (20-31); CHLORIDE LEVEL 108 MMOL/L (98-107); CREATININE FOR GFR 0.84 MG/DL (0.70-1.30); GLOMERULAR FILTRATION RATE > 60.0 (>56); GLUCOSE, FASTING 81 MG/DL (60-100); POTASSIUM SERUM 3.9 MMOL/L (3.5-5.1); SODIUM LEVEL 140 MMOL/L (136-145)
[2023-12-01 14:00] VITALS: BP 92/59; TEMP 98.5; O2SAT 96
[2023-12-01 14:05] VITALS: BP 98/64
[2023-12-01] MEDS: DOXYCYCLINE HYCLATE 100MG TABLET PO SCH (21:27)
[2023-12-01 22:00] VITALS: BP 97/66; TEMP 97.9; O2SAT 98
[2023-12-02 05:21] VITALS: BP 99/62; TEMP 98.5; O2SAT 97
[2023-12-02 06:17] LABS: BASO % 0.3 % (0.0-1.0); EOS # 0.2 10^3/uL (0.0-0.5); EOS % 3.2 % (0.0-3.0); HEMATOCRIT 35.9 % (42.0-52.0); HEMOGLOBIN 11.1 g/dl (13.5-17.5); LYMPH # 1.1 10^3/uL (1.5-5.0); LYMPH % 17.8 % (24.0-44.0); MEAN CORPUSCULAR HEMOGLOBIN 24.9 pg (27.0-33.0); MEAN CORPUSCULAR HGB CONC 30.9 g/dl (32.0-36.5); MEAN CORPUSCULAR VOLUME 80.5 fl (80.0-96.0); MONO # 0.7 10^3/uL (0.0-0.8); MONO % 12.1 % (2.0-8.0); NEUTROPHILS # 3.9 10^3/uL (1.5-8.5); NEUTROPHILS % 65.8 % (36.0-66.0); PLATELET COUNT, AUTOMATED 342 10^3/uL (150-450); RED BLOOD COUNT 4.46 10^6/uL (4.30-6.10)
[2023-12-02 06:35] LABS: BLOOD UREA NITROGEN 9 MG/DL (9-23); CARBON DIOXIDE LEVEL 27 MMOL/L (20-31); CHLORIDE LEVEL 108 MMOL/L (98-107); CREATININE FOR GFR 0.88 MG/DL (0.70-1.30); GLOMERULAR FILTRATION RATE > 60.0 (>56); GLUCOSE, FASTING 98 MG/DL (60-100); SODIUM LEVEL 140 MMOL/L (136-145)
[2023-12-02 13:48] VITALS: BP 108/68; TEMP 97.9; O2SAT 94
[2023-12-02 22:22] VITALS: BP 109/74; TEMP 98.1; O2SAT 93
[2023-12-03 06:31] VITALS: BP 110/76; TEMP 97.3; O2SAT 91
[2023-12-03 06:37] LABS: BASO % 0.5 % (0.0-1.0); EOS # 0.2 10^3/uL (0.0-0.5); EOS % 2.5 % (0.0-3.0); HEMATOCRIT 37.3 % (42.0-52.0); HEMOGLOBIN 11.3 g/dl (13.5-17.5); LYMPH # 1.2 10^3/uL (1.5-5.0); LYMPH % 18.3 % (24.0-44.0); MEAN CORPUSCULAR HEMOGLOBIN 24.5 pg (27.0-33.0); MEAN CORPUSCULAR HGB CONC 30.3 g/dl (32.0-36.5); MEAN CORPUSCULAR VOLUME 80.7 fl (80.0-96.0); MONO # 0.8 10^3/uL (0.0-0.8); MONO % 12.4 % (2.0-8.0); NEUTROPHILS # 4.2 10^3/uL (1.5-8.5); NEUTROPHILS % 65.7 % (36.0-66.0); PLATELET COUNT, AUTOMATED 362 10^3/uL (150-450); RED BLOOD COUNT 4.62 10^6/uL (4.30-6.10); WHITE BLOOD COUNT 6.4 10^3/uL (4.0-10.0)
[2023-12-03 07:04] LABS: BLOOD UREA NITROGEN 10 MG/DL (9-23); CALCIUM LEVEL 8.3 MG/DL (8.5-10.1); CARBON DIOXIDE LEVEL 27 MMOL/L (20-31); CHLORIDE LEVEL 108 MMOL/L (98-107); CREATININE FOR GFR 0.92 MG/DL (0.70-1.30); GLOMERULAR FILTRATION RATE > 60.0 (>56); GLUCOSE, FASTING 88 MG/DL (60-100); POTASSIUM SERUM 3.9 MMOL/L (3.5-5.1); SODIUM LEVEL 142 MMOL/L (136-145)
[2023-12-03 15:30] VITALS: BP 127/86; TEMP 98.1; O2SAT 97
[2023-12-03 20:43] VITALS: BP 100/77; TEMP 98.6; O2SAT 97
[2023-12-04 06:45] VITALS: BP 109/78; TEMP 97.9; O2SAT 96
[2023-12-04] MEDS ORDERED: CEFEPIME HCL 2 GM in D5W MINI-BAG PLUS 50 ML IV SCH (07:00)
[2023-12-04] MEDS ORDERED: DOXY100T PO (07:16)
[2023-12-04 08:04] VITALS: BP 116/82; TEMP 97.6; O2SAT 93
== END 2023-12-04 15:25 | disposition home health service (06) | DRG 698 ==
LOC: EDBD 14:26 → M ED 14:26 → M ED INP 19:32 → M MS5PR 22:09
PROVIDERS: ADMIT Family Medicine; ATTEND Student in an Organized Health Care Education/Training Program
DX: T83.518A Infection and inflammatory reaction due to other urinary catheter, initial encounter (principal); A41.9 Sepsis, unspecified organism; C77.2 Secondary and unspecified malignant neoplasm of intra-abdominal lymph nodes; N39.0 Urinary tract infection, site not specified; N17.9 Acute kidney failure, unspecified; B37.0 Candidal stomatitis; E87.20 Acidosis, unspecified; D84.9 Immunodeficiency, unspecified; T83.022A Displacement of nephrostomy catheter, initial encounter; A49.02 Methicillin resistant Staphylococcus aureus infection, unspecified site; C67.9 Malignant neoplasm of bladder, unspecified; G80.9 Cerebral palsy, unspecified; I12.9 Hypertensive chronic kidney disease with stage 1 through stage 4 chronic kidney disease, or unspecified chronic kidney disease; F41.9 Anxiety disorder, unspecified; D86.9 Sarcoidosis, unspecified; E83.42 Hypomagnesemia; F17.220 Nicotine dependence, chewing tobacco, uncomplicated; M19.90 Unspecified osteoarthritis, unspecified site; J45.909 Unspecified asthma, uncomplicated; Z79.899 Other long term (current) drug therapy; Z88.0 Allergy status to penicillin; Z88.5 Allergy status to narcotic agent; Z20.822 Contact with and (suspected) exposure to COVID-19; Z99.3 Dependence on wheelchair

== ENCOUNTER 2023-12-07 13:04 | Emergency (ER) | payer MEDICARE ==
[~2023-12-07] VITALS: Ht 160 cm; Wt 70.7 kg
[~2023-12-07 13:04] MED LIST changes: +BACTDSTA PO; +DOXY100T PO; +SERT50TA29 PO
[2023-12-07] MEDS: LIDOCAINE 4% CREAM 5GM (LMX4) TOP ONE (13:25)
[2023-12-07 15:40] VITALS: TEMP 97.8
[2023-12-07] MEDS ORDERED: ceFAZolin 2 GM/D5W 50 ML IV BAG As Ordered ONE (16:06)
[2023-12-07] MEDS ORDERED: fentaNYL 100 MCG/2 ML INJECTION As Ordered ONE (16:06)
[2023-12-07] MEDS ORDERED: ISOVUE-300 61% 100ML VIAL As Ordered ONE (16:07)
[2023-12-07] MEDS ORDERED: MIDAZOLAM INJ 2MG/2ML VIAL As Ordered ONE (16:07)
[2023-12-07] MEDS ORDERED: LIDOCAINE 1% MDV 20ML VIAL As Ordered ONE (16:07)
[2023-12-07] MEDS ORDERED: VANCOMYCIN HCL 1,000 MG, VIAL MATE ADAPTER 1 EACH in NS 250 ML IV ONE (16:10)
[2023-12-07] MEDS ORDERED: VANCOMYCIN 1000MG/20ML VIAL As Ordered ONE (16:10)
[2023-12-07] MEDS: ceFAZolin SOD 2 GM in IV 1 EA IV ONE (16:22)
[2023-12-07] MEDS ORDERED: ONDANSETRON 4MG 2ML VIAL As Ordered ONE (16:39)
[2023-12-07 17:05] VITALS: BP 114/74; O2SAT 99
[2023-12-08] MEDS ORDERED: SERT50TA29 PO (14:36)
== END 2023-12-07 23:21 | disposition home or self-care (01) ==
LOC: M ED 13:04 → EDBD 13:04 → M ED 23:21
DX: Z43.6 Encounter for attention to other artificial openings of urinary tract (principal); I10 Essential (primary) hypertension; J45.909 Unspecified asthma, uncomplicated; G80.9 Cerebral palsy, unspecified; Z85.51 Personal history of malignant neoplasm of bladder; Z79.899 Other long term (current) drug therapy; Z88.0 Allergy status to penicillin; Z88.5 Allergy status to narcotic agent
CPT/HCPCS: 50432; 75984; 96374; 99152; 99153; 99284; C1729; C1769; J0690; J2250; J2405; J3010; Q9967

== ENCOUNTER 2023-12-30 13:46 | Inpatient (IN) | payer MEDICARE, MEDICAID ==
[~2023-12-30] VITALS: Ht 160 cm; Wt 77.0 kg
[~2023-12-30 13:46] MED LIST changes: +GABA-282 PO
[2023-12-30] MEDS ORDERED: SODIUM CHLORIDE 0.9% INJ 10 ML SYR IV PRN (14:45)
[2023-12-30] MEDS: NS 1,000 ML IV SCH (14:47)
[2023-12-30] MEDS: ACETAMINOPHEN TAB 650MG DOSE (2X325MG) PO ONE (14:47)
[2023-12-30 15:13] LABS: BASO % 0.1 % (0.0-1.0); EOS % 0.3 % (0.0-3.0); HEMATOCRIT 40.4 % (42.0-52.0); HEMOGLOBIN 12.4 g/dl (13.5-17.5); LYMPH % 6.2 % (24.0-44.0); MEAN CORPUSCULAR HEMOGLOBIN 25.3 pg (27.0-33.0); MEAN CORPUSCULAR HGB CONC 30.7 g/dl (32.0-36.5); MEAN CORPUSCULAR VOLUME 82.4 fl (80.0-96.0); MONO # 1.9 10^3/uL (0.0-0.8); MONO % 12.4 % (2.0-8.0); NEUTROPHILS # 12.6 10^3/uL (1.5-8.5); NEUTROPHILS % 80.6 % (36.0-66.0); PLATELET COUNT, AUTOMATED 354 10^3/uL (150-450); WHITE BLOOD COUNT 15.6 10^3/uL (4.0-10.0)
[2023-12-30 15:33] LABS: CK-MB VALUE MASS < 1.0 NG/ML (<3.6)
[2023-12-30] MEDS ORDERED: MED REC IN PROGRESS XX SCH (15:35)
[2023-12-30 15:36] LABS: CPK CREATINE PHOSPHOKINASE 19 U/L (46-171); MB/CK RELATIVE INDEX 5.26 (< OR =4)
[2023-12-30 15:37] LABS: INR 1.31; PARTIAL THROMBOPLASTIN TIME 33.8 SECONDS (24.8-34.2); PROTHROMBIN TIME 15.9 SECONDS (12.5-14.5)
[2023-12-30] MEDS: cefTRIAXone SOD 2 GM in D5W MINI-BAG PLUS 50 ML IV ONE (15:39)
[2023-12-30 15:42] LABS: ALBUMIN 2.7 G/DL (3.2-5.2); ALKALINE PHOSPHATASE 86 U/L (46-116); ALT/SGPT 41 U/L (7.0-40); AST/SGOT 28 U/L (<34); BILIRUBIN,DIRECT 0.5 MG/DL (<0.4); BLOOD UREA NITROGEN 17 MG/DL (9-23); CALCIUM LEVEL 7.7 MG/DL (8.5-10.1); CARBON DIOXIDE LEVEL 29 MMOL/L (20-31); CHLORIDE LEVEL 100 MMOL/L (98-107); CREATININE FOR GFR 1.41 MG/DL (0.70-1.30); GLOMERULAR FILTRATION RATE 55.4 (>56); GLUCOSE, FASTING 108 MG/DL (60-100); POTASSIUM SERUM 3.4 MMOL/L (3.5-5.1); SODIUM LEVEL 135 MMOL/L (136-145); TOTAL PROTEIN 6.8 G/DL (5.7-8.2)
[2023-12-30] MEDS ORDERED: ISOVUE-370 76% 100ML VIAL As Ordered ONE (15:45)
[2023-12-30] MEDS ORDERED: ONDA-83 PO (16:05)
[2023-12-30] MEDS ORDERED: LIDO30CR18 TOP (16:05)
[2023-12-30] MEDS ORDERED: PROC10TA5 PO (16:05)
[2023-12-30] MEDS ORDERED: HOME MED LIST COMPLETE! XX SCH (16:10)
[2023-12-30] MEDS: NS 500 ML IV ONE (16:30)
[2023-12-30] MEDS ORDERED: HYDR-3713 PO ×2 (16:33)
[2023-12-30] MEDS ORDERED: MM S100C PO (16:36)
[2023-12-30] MEDS ORDERED: VANCOMYCIN HCL 1,000 MG in IV FLUID PLACE HOLDER 1 EA IV ONE (17:00)
[2023-12-30] MEDS: CEFEPIME HCL 2 GM in D5W MINI-BAG PLUS 50 ML IV ONE (17:09)
[2023-12-30] MEDS: VANCOMYCIN HCL 1,000 MG, VIAL MATE ADAPTER 1 EACH in D5W 250 ML IV ONE (17:51)
[2023-12-30] MEDS: POTASSIUM CHLORIDE 10MEQ SR TABLET PO ONE (17:53)
[2023-12-30] MEDS: LR 1,000 ML IV ONE (18:50)
[2023-12-30] MEDS: LR 500 ML IV ONE (20:54)
[2023-12-30] MEDS: LR 1,000 ML IV SCH (21:19)
[2023-12-30] MEDS: VANCOMYCIN HCL 500 MG in D5W MINI-BAG PLUS 100 ML IV ONE (22:02)
[2023-12-31] MEDS: HEPARIN SOD (PORCINE) 5000UNITS/ML 1ML VIAL/SYRINGE SC SCH (00:29)
[2023-12-31 03:02] VITALS: BP 101/61; TEMP 98.5; O2SAT 92
[2023-12-31] MEDS: VANCOMYCIN HCL 750 MG, VIAL MATE ADAPTER 1 EACH in D5W 250 ML IV SCH (05:13)
[2023-12-31 05:25] LABS: HEMATOCRIT 32.7 % (42.0-52.0); MEAN CORPUSCULAR HEMOGLOBIN 25.8 pg (27.0-33.0); MEAN CORPUSCULAR HGB CONC 31.2 g/dl (32.0-36.5); MEAN CORPUSCULAR VOLUME 82.6 fl (80.0-96.0); PLATELET COUNT, AUTOMATED 300 10^3/uL (150-450); RED BLOOD COUNT 3.96 10^6/uL (4.30-6.10); WHITE BLOOD COUNT 14.9 10^3/uL (4.0-10.0)
[2023-12-31 05:34] LABS: HEMOGLOBIN 10.2 g/dl (13.5-17.5)
[2023-12-31 05:56] LABS: BLOOD UREA NITROGEN 15 MG/DL (9-23); CALCIUM LEVEL 7.4 MG/DL (8.5-10.1); CARBON DIOXIDE LEVEL 26 MMOL/L (20-31); CHLORIDE LEVEL 105 MMOL/L (98-107); GLOMERULAR FILTRATION RATE > 60.0 (>56); GLUCOSE, FASTING 151 MG/DL (60-100); POTASSIUM SERUM 3.5 MMOL/L (3.5-5.1); SODIUM LEVEL 135 MMOL/L (136-145)
[2023-12-31] MEDS: CEFEPIME HCL 2 GM in D5W MINI-BAG PLUS 50 ML IV SCH (06:19)
[2023-12-31 08:00] VITALS: BP 95/57; TEMP 97; O2SAT 98
[2023-12-31 12:00] VITALS: BP 100/63; TEMP 97; O2SAT 91
[2023-12-31 16:02] VITALS: BP 99/62; TEMP 97.4; O2SAT 93
[2023-12-31 18:30] VITALS: BP 105/59
[2023-12-31 19:06] VITALS: BP 107/69; TEMP 97.3; O2SAT 93
[2024-01-01] MEDS ORDERED: DOCU100C16 PO (21:45)
[2024-01-01] MEDS ORDERED: ONDA-83 PO (21:47)
== END 2023-12-31 21:09 | disposition short-term general hospital (02) | DRG 698 ==
LOC: M ED 13:46 → M ED INP 17:26 → ENRESERV 12-31 02:40 → M PCU 12-31 02:50
PROVIDERS: ADMIT Internal Medicine; ATTEND Internal Medicine
DX: T83.518A Infection and inflammatory reaction due to other urinary catheter, initial encounter (principal); A41.9 Sepsis, unspecified organism; G80.0 Spastic quadriplegic cerebral palsy; R65.20 Severe sepsis without septic shock; C77.2 Secondary and unspecified malignant neoplasm of intra-abdominal lymph nodes; N17.9 Acute kidney failure, unspecified; N39.0 Urinary tract infection, site not specified; N13.9 Obstructive and reflux uropathy, unspecified; N18.9 Chronic kidney disease, unspecified; D86.9 Sarcoidosis, unspecified; J45.909 Unspecified asthma, uncomplicated; Z66 Do not resuscitate; M19.90 Unspecified osteoarthritis, unspecified site; F32.A Depression, unspecified; G62.9 Polyneuropathy, unspecified; C67.9 Malignant neoplasm of bladder, unspecified; E87.6 Hypokalemia; F41.9 Anxiety disorder, unspecified; Z79.899 Other long term (current) drug therapy; Z88.0 Allergy status to penicillin; Z88.5 Allergy status to narcotic agent; Z11.52 Encounter for screening for COVID-19; Z99.3 Dependence on wheelchair; Z87.891 Personal history of nicotine dependence; Z93.6 Other artificial openings of urinary tract status

== ENCOUNTER 2024-01-01 15:18 | Inpatient (IN) | payer MEDICARE, MEDICAID ==
[~2024-01-01] VITALS: Ht 161.3 cm; Wt 75.6 kg
[~2024-01-01 15:18] MED LIST changes: +MM S100C PO
[2024-01-01 20:27] VITALS: BP 97/63; TEMP 98.1; O2SAT 94
[2024-01-01] MEDS: DOCUSATE SODIUM 100MG CAPSULE PO SCH (21:00)
[2024-01-01] MEDS ORDERED: DOCU100C16 PO (21:45)
[2024-01-01] MEDS ORDERED: ONDA-83 PO (21:47)
[2024-01-01] MEDS ORDERED: HOME MED LIST COMPLETE! XX SCH (21:55)
[2024-01-01] MEDS ORDERED: ACETAMINOPHEN TAB 650MG DOSE (2X325MG) PO PRN (22:05)
[2024-01-01] MEDS ORDERED: PROCHLORPERAZINE 5MG TAB PO PRN (22:15)
[2024-01-01] MEDS: GABAPENTIN 300 MG CAP PO SCH (22:41)
[2024-01-01] MEDS: BACLOFEN 10 MG TAB PO SCH (22:41)
[2024-01-02] MEDS: ANALGESIC BALM CRM 3OZ TOP PRN ×2 (01:17→20:30)
[2024-01-02] MEDS: CEFEPIME HCL 2 GM in D5W MINI-BAG PLUS 50 ML IV SCH (01:38)
[2024-01-02] MEDS ORDERED: CEFEPIME HCL 1 GM in D5W MINI-BAG PLUS 50 ML IV SCH (02:00)
[2024-01-02] MEDS: VANCOMYCIN HCL 1,000 MG, VIAL MATE ADAPTER 1 EACH in D5W 250 ML IV SCH (02:09)
[2024-01-02] MEDS ORDERED: VANCOMYCIN HCL 750 MG, VIAL MATE ADAPTER 1 EACH in D5W 250 ML IV SCH (06:00)
[2024-01-02 06:02] LABS: BASO % 0.2 % (0.0-1.0); EOS # 0.4 10^3/uL (0.0-0.5); EOS % 5.9 % (0.0-3.0); HEMATOCRIT 31.3 % (42.0-52.0); HEMOGLOBIN 9.5 g/dl (13.5-17.5); LYMPH # 0.9 10^3/uL (1.5-5.0); LYMPH % 14.2 % (24.0-44.0); MEAN CORPUSCULAR HEMOGLOBIN 25.3 pg (27.0-33.0); MEAN CORPUSCULAR HGB CONC 30.4 g/dl (32.0-36.5); MEAN CORPUSCULAR VOLUME 83.2 fl (80.0-96.0); MONO # 0.8 10^3/uL (0.0-0.8); MONO % 12.2 % (2.0-8.0); NEUTROPHILS # 4.1 10^3/uL (1.5-8.5); PLATELET COUNT, AUTOMATED 317 10^3/uL (150-450); RED BLOOD COUNT 3.76 10^6/uL (4.30-6.10); WHITE BLOOD COUNT 6.1 10^3/uL (4.0-10.0)
[2024-01-02 06:10] VITALS: BP 94/50; TEMP 97.9; O2SAT 96
[2024-01-02 06:24] LABS: BLOOD UREA NITROGEN 10 MG/DL (9-23); CALCIUM LEVEL 7.2 MG/DL (8.5-10.1); CARBON DIOXIDE LEVEL 27 MMOL/L (20-31); CHLORIDE LEVEL 108 MMOL/L (98-107); GLOMERULAR FILTRATION RATE > 60.0 (>56); GLUCOSE, FASTING 91 MG/DL (60-100); POTASSIUM SERUM 3.2 MMOL/L (3.5-5.1); SODIUM LEVEL 139 MMOL/L (136-145)
[2024-01-02] MEDS: ACETAMINOPHEN 500 MG TAB PO PRN (07:57)
[2024-01-02] MEDS: POTASSIUM CHLORIDE 10MEQ SR TABLET PO ONE (07:57)
[2024-01-02] MEDS: SERTRALINE HCL 50 MG TAB PO SCH (07:58)
[2024-01-02] MEDS: SODIUM CHLORIDE 0.9% INJ 10 ML SYR IV SCH (07:59)
[2024-01-02] MEDS: ENOXAPARIN 30MG/0.3ML SYRINGE (J1650 PER 10MG) SC SCH (08:04)
[2024-01-02 14:17] VITALS: BP_SYST 109; BP_SYST 128; BP_DIAS 73; BP_DIAS 76; TEMP 97.9; O2SAT 100
[2024-01-02 22:03] VITALS: BP 94/50; TEMP 97.9; O2SAT 96
[2024-01-03] MEDS ORDERED: UNRESOLVED CLARIFICATION ENTRY XX SCH (00:01)
[2024-01-03 06:00] VITALS: BP 110/69; TEMP 97.9; O2SAT 99
[2024-01-03 06:18] LABS: HEMATOCRIT 33.5 % (42.0-52.0); HEMOGLOBIN 10.3 g/dl (13.5-17.5); MEAN CORPUSCULAR HEMOGLOBIN 25.7 pg (27.0-33.0); MEAN CORPUSCULAR HGB CONC 30.7 g/dl (32.0-36.5); MEAN CORPUSCULAR VOLUME 83.5 fl (80.0-96.0); PLATELET COUNT, AUTOMATED 364 10^3/uL (150-450); RED BLOOD COUNT 4.01 10^6/uL (4.30-6.10); WHITE BLOOD COUNT 6.2 10^3/uL (4.0-10.0)
[2024-01-03 06:48] LABS: BLOOD UREA NITROGEN 12 MG/DL (9-23); CALCIUM LEVEL 7.5 MG/DL (8.5-10.1); CARBON DIOXIDE LEVEL 25 MMOL/L (20-31); CHLORIDE LEVEL 109 MMOL/L (98-107); CREATININE FOR GFR 0.96 MG/DL (0.70-1.30); GLOMERULAR FILTRATION RATE > 60.0 (>56); GLUCOSE, FASTING 108 MG/DL (60-100); MAGNESIUM LEVEL 1.8 MG/DL (1.8-2.4); PHOSPHORUS LEVEL 2.9 MG/DL (2.5-4.9); POTASSIUM SERUM 3.7 MMOL/L (3.5-5.1); SODIUM LEVEL 143 MMOL/L (136-145)
[2024-01-03 14:50] VITALS: BP 111/66; TEMP 97.7; O2SAT 95
[2024-01-03] MEDS: ONDANSETRON 4MG TAB PO PRN (16:04)
[2024-01-03 20:30] VITALS: BP 109/66; TEMP 97.7; O2SAT 96
[2024-01-03] MEDS: ALPRAZolam 0.25 MG TAB PO PRN (20:36)
[2024-01-04 06:28] VITALS: BP 101/63; TEMP 97.5; O2SAT 100
[2024-01-04 14:00] VITALS: BP 98/54; TEMP 97.7; O2SAT 95
[2024-01-04 20:45] VITALS: BP 99/65; TEMP 97.9; O2SAT 97
[2024-01-05 05:51] VITALS: BP 92/65; TEMP 97.3; O2SAT 94
[2024-01-05 09:20] LABS: BASO % 0.2 % (0.0-1.0); EOS # 0.3 10^3/uL (0.0-0.5); EOS % 4.5 % (0.0-3.0); HEMATOCRIT 35.2 % (42.0-52.0); HEMOGLOBIN 10.7 g/dl (13.5-17.5); LYMPH # 1.2 10^3/uL (1.5-5.0); LYMPH % 20.4 % (24.0-44.0); MEAN CORPUSCULAR HEMOGLOBIN 25.8 pg (27.0-33.0); MEAN CORPUSCULAR HGB CONC 30.4 g/dl (32.0-36.5); MEAN CORPUSCULAR VOLUME 84.8 fl (80.0-96.0); MONO # 0.5 10^3/uL (0.0-0.8); MONO % 8.9 % (2.0-8.0); NEUTROPHILS # 3.7 10^3/uL (1.5-8.5); NEUTROPHILS % 62.9 % (36.0-66.0); PLATELET COUNT, AUTOMATED 321 10^3/uL (150-450); RED BLOOD COUNT 4.15 10^6/uL (4.30-6.10); WHITE BLOOD COUNT 5.8 10^3/uL (4.0-10.0)
[2024-01-05 09:55] LABS: BLOOD UREA NITROGEN 14 MG/DL (9-23); CALCIUM LEVEL 7.7 MG/DL (8.5-10.1); CARBON DIOXIDE LEVEL 28 MMOL/L (20-31); CHLORIDE LEVEL 110 MMOL/L (98-107); CREATININE FOR GFR 0.91 MG/DL (0.70-1.30); GLOMERULAR FILTRATION RATE > 60.0 (>56); GLUCOSE, FASTING 84 MG/DL (60-100); SODIUM LEVEL 142 MMOL/L (136-145)
[2024-01-05 14:00] VITALS: BP 106/80; TEMP 97.7; O2SAT 98
[2024-01-05] MEDS: POTASSIUM CHLORIDE 10MEQ SR TABLET PO ONE (17:37)
[2024-01-05 20:44] VITALS: BP 90/66; TEMP 97.7; O2SAT 95
[2024-01-06] MEDS: SODIUM CHLORIDE 0.9% INJ 10 ML SYR IV PRN (03:32)
[2024-01-06 08:11] VITALS: BP 119/82; TEMP 97.9; O2SAT 98
[2024-01-06] MEDS ORDERED: POTA8CAP10 PO (09:36)
== END 2024-01-06 13:14 | disposition home or self-care (01) | DRG 698 ==
LOC: M MSPAV 20:27
PROVIDERS: ADMIT Student in an Organized Health Care Education/Training Program; ATTEND Internal Medicine Nephrology
DX: T83.518A Infection and inflammatory reaction due to other urinary catheter, initial encounter (principal); G80.0 Spastic quadriplegic cerebral palsy; A41.9 Sepsis, unspecified organism; R65.20 Severe sepsis without septic shock; R53.2 Functional quadriplegia; N17.9 Acute kidney failure, unspecified; J45.909 Unspecified asthma, uncomplicated; M19.90 Unspecified osteoarthritis, unspecified site; F32.A Depression, unspecified; F41.9 Anxiety disorder, unspecified; N18.9 Chronic kidney disease, unspecified; N13.9 Obstructive and reflux uropathy, unspecified; G62.9 Polyneuropathy, unspecified; C67.9 Malignant neoplasm of bladder, unspecified; Z85.51 Personal history of malignant neoplasm of bladder; Z87.891 Personal history of nicotine dependence; Z79.899 Other long term (current) drug therapy; Z88.0 Allergy status to penicillin; Z88.5 Allergy status to narcotic agent; Z93.6 Other artificial openings of urinary tract status; Z99.3 Dependence on wheelchair

== ENCOUNTER → 2024-02-03 | Outpatient (CLI) | payer MEDICARE, MEDICAID ==
[~2024-02-03] MED LIST changes: +NYST100084 TOP; -NYST10OI TOP; +POTA8CAP10 PO
== END ==
LOC: M ONCR 09:25
PROVIDERS: ATTEND General Practice
DX: C67.8 Malignant neoplasm of overlapping sites of bladder (principal); F17.220 Nicotine dependence, chewing tobacco, uncomplicated; Z71.2 Person consulting for explanation of examination or test findings; Z79.620 Long term (current) use of immunosuppressive biologic; Z79.891 Long term (current) use of opiate analgesic; Z79.899 Other long term (current) drug therapy; Z88.0 Allergy status to penicillin; Z88.1 Allergy status to other antibiotic agents; Z88.5 Allergy status to narcotic agent; Z92.21 Personal history of antineoplastic chemotherapy; Z92.3 Personal history of irradiation; Z93.6 Other artificial openings of urinary tract status; Z99.3 Dependence on wheelchair

== ENCOUNTER 2024-02-07 08:43 | Inpatient (IN) | payer MEDICARE, MEDICAID ==
[~2024-02-07] VITALS: Ht 160 cm; Wt 76.2 kg
[2024-02-07] MEDS: ACETAMINOPHEN TAB 650MG DOSE (2X325MG) PO ONE (10:11)
[2024-02-07 10:29] LABS: BASO # 0.1 10^3/uL (0.0-0.2); BASO % 0.6 % (0.0-1.0); EOS # 0.1 10^3/uL (0.0-0.5); EOS % 0.8 % (0.0-3.0); HEMOGLOBIN 12.9 g/dl (13.5-17.5); LYMPH # 0.7 10^3/uL (1.5-5.0); LYMPH % 8.1 % (24.0-44.0); MEAN CORPUSCULAR HEMOGLOBIN 25.9 pg (27.0-33.0); MEAN CORPUSCULAR HGB CONC 30.7 g/dl (32.0-36.5); MEAN CORPUSCULAR VOLUME 84.2 fl (80.0-96.0); MONO # 1.2 10^3/uL (0.0-0.8); MONO % 13.2 % (2.0-8.0); PLATELET COUNT, AUTOMATED 248 10^3/uL (150-450); RED BLOOD COUNT 4.99 10^6/uL (4.30-6.10)
[2024-02-07 10:42] LABS: INR 1.09; PARTIAL THROMBOPLASTIN TIME 30.1 SECONDS (24.8-34.2); PROTHROMBIN TIME 13.7 SECONDS (12.5-14.5)
[2024-02-07 10:53] LABS: CK-MB VALUE MASS < 1.0 NG/ML (<3.6)
[2024-02-07 10:55] LABS: ALBUMIN 2.8 G/DL (3.2-5.2); ALKALINE PHOSPHATASE 79 U/L (46-116); ALT/SGPT 37 U/L (7.0-40); AST/SGOT 39 U/L (<34); BILIRUBIN,DIRECT 0.3 MG/DL (<0.4); BILIRUBIN,TOTAL 0.7 MG/DL (0.3-1.2); BLOOD UREA NITROGEN 19 MG/DL (9-23); CALCIUM LEVEL 8.4 MG/DL (8.5-10.1); CARBON DIOXIDE LEVEL 26 MMOL/L (20-31); CHLORIDE LEVEL 105 MMOL/L (98-107); CPK CREATINE PHOSPHOKINASE 52 U/L (46-171); CREATININE FOR GFR 1.11 MG/DL (0.70-1.30); GLOMERULAR FILTRATION RATE > 60.0 (>56); GLUCOSE, FASTING 99 MG/DL (60-100); MB/CK RELATIVE INDEX 1.92 (< OR =4); SODIUM LEVEL 139 MMOL/L (136-145); TOTAL PROTEIN 6.5 G/DL (5.7-8.2)
[2024-02-07 10:57] LABS: FREE T4 1.17 NG/DL (0.89-1.76); THYROID STIMULATING HORMONE 0.759 uIU/ML (0.55-4.78)
[2024-02-07] MEDS ORDERED: ZOLO50TA PO (11:15)
[2024-02-07] MEDS ORDERED: HOME MED LIST COMPLETE! XX SCH (11:20)
[2024-02-07] MEDS: NS 1,000 ML IV SCH ×2 (11:59→14:16)
[2024-02-07] MEDS: LevoFLOXacin IV 750 MG in IV 1 EA IV ONE (11:59)
[2024-02-07] MEDS ORDERED: ALPRAZolam 0.25 MG TAB PO PRN (13:10)
[2024-02-07] MEDS ORDERED: PROCHLORPERAZINE 5MG TAB PO PRN (13:10)
[2024-02-07] MEDS: LEVALBUTEROL HFA 45MCG/ACT 15GM INHALER INH SCH (13:57)
[2024-02-07] MEDS: OSELTAMIVIR PHOSPHATE 75 MG CAP (TAMIFLU) PO SCH (14:16)
[2024-02-07 14:49] VITALS: BP 112/76; TEMP 96.7; O2SAT 92
[2024-02-07 15:40] VITALS: BP 101/63; TEMP 97.5; O2SAT 91
[2024-02-07] MEDS: GABAPENTIN 300 MG CAP PO SCH (16:28)
[2024-02-07] MEDS: BACLOFEN 10 MG TAB PO SCH (16:28)
[2024-02-07] MEDS ORDERED: NS 1,000 ML IV ONE (18:00)
[2024-02-07 19:58] VITALS: BP 101/68; TEMP 97.5; O2SAT 94
[2024-02-07 23:18] VITALS: BP 101/65; TEMP 98.6; O2SAT 93
[2024-02-08 00:13] VITALS: BP 101/65; TEMP 98.6; O2SAT 93
[2024-02-08 03:47] VITALS: BP 100/56; TEMP 98.8; O2SAT 94
[2024-02-08 04:00] VITALS: BP 100/56; TEMP 98.8; O2SAT 94
[2024-02-08] MEDS: ACETAMINOPHEN 500 MG TAB PO PRN ×2 (04:48→20:20)
[2024-02-08 06:03] LABS: BASO % 0.7 % (0.0-1.0); EOS # 0.1 10^3/uL (0.0-0.5); EOS % 1.9 % (0.0-3.0); HEMATOCRIT 34.9 % (42.0-52.0); LYMPH # 0.7 10^3/uL (1.5-5.0); LYMPH % 11.3 % (24.0-44.0); MEAN CORPUSCULAR HEMOGLOBIN 26.3 pg (27.0-33.0); MEAN CORPUSCULAR HGB CONC 31.5 g/dl (32.0-36.5); MEAN CORPUSCULAR VOLUME 83.3 fl (80.0-96.0); MONO % 17.2 % (2.0-8.0); NEUTROPHILS # 4.1 10^3/uL (1.5-8.5); NEUTROPHILS % 68.7 % (36.0-66.0); PLATELET COUNT, AUTOMATED 199 10^3/uL (150-450); RED BLOOD COUNT 4.19 10^6/uL (4.30-6.10); WHITE BLOOD COUNT 5.9 10^3/uL (4.0-10.0)
[2024-02-08 06:26] LABS: BLOOD UREA NITROGEN 13 MG/DL (9-23); CALCIUM LEVEL 7.7 MG/DL (8.5-10.1); CARBON DIOXIDE LEVEL 26 MMOL/L (20-31); CHLORIDE LEVEL 106 MMOL/L (98-107); CREATININE FOR GFR 1.01 MG/DL (0.70-1.30); GLOMERULAR FILTRATION RATE > 60.0 (>56); GLUCOSE, FASTING 106 MG/DL (60-100); POTASSIUM SERUM 3.6 MMOL/L (3.5-5.1); SODIUM LEVEL 138 MMOL/L (136-145)
[2024-02-08 08:00] VITALS: BP 99/64; TEMP 96.7; O2SAT 96
[2024-02-08] MEDS: SERTRALINE HCL 50 MG TAB PO SCH (08:46)
[2024-02-08] MEDS ORDERED: NORCO, ANEXSIA 5/325MG TABLET (HYDROcodone/ACETAMINOPHEN) PO PRN (12:50)
[2024-02-08 16:00] VITALS: BP 100/59; TEMP 96.6; O2SAT 99
[2024-02-08 19:44] VITALS: BP 102/60; TEMP 97.8; O2SAT 97
[2024-02-09 03:46] VITALS: BP 112/69; TEMP 97.4; O2SAT 94
[2024-02-09 05:37] LABS: BASO % 0.6 % (0.0-1.0); EOS # 0.3 10^3/uL (0.0-0.5); EOS % 5.7 % (0.0-3.0); HEMOGLOBIN 11.1 g/dl (13.5-17.5); LYMPH # 0.9 10^3/uL (1.5-5.0); MEAN CORPUSCULAR HEMOGLOBIN 25.5 pg (27.0-33.0); MEAN CORPUSCULAR VOLUME 85.1 fl (80.0-96.0); MONO # 0.7 10^3/uL (0.0-0.8); MONO % 13.5 % (2.0-8.0); NEUTROPHILS % 60.8 % (36.0-66.0); PLATELET COUNT, AUTOMATED 224 10^3/uL (150-450); RED BLOOD COUNT 4.35 10^6/uL (4.30-6.10); WHITE BLOOD COUNT 4.9 10^3/uL (4.0-10.0)
[2024-02-09 06:02] LABS: BLOOD UREA NITROGEN 13 MG/DL (9-23); CALCIUM LEVEL 8.4 MG/DL (8.5-10.1); CARBON DIOXIDE LEVEL 27 MMOL/L (20-31); CHLORIDE LEVEL 108 MMOL/L (98-107); GLOMERULAR FILTRATION RATE > 60.0 (>56); GLUCOSE, FASTING 86 MG/DL (60-100); POTASSIUM SERUM 3.4 MMOL/L (3.5-5.1); SODIUM LEVEL 141 MMOL/L (136-145)
[2024-02-09 07:30] LABS: MAGNESIUM LEVEL 1.9 MG/DL (1.8-2.4)
[2024-02-09 07:46] VITALS: BP 108/72; TEMP 97.5; O2SAT 97
[2024-02-09] MEDS: POTASSIUM CHLORIDE 10MEQ SR TABLET PO ONE (09:47)
[2024-02-09] MEDS ORDERED: OSEL75CA2 PO (10:38)
== END 2024-02-09 13:44 | disposition home health service (06) | DRG 194 ==
LOC: EDBD 08:43 → M ED 08:43 → M ED INP 12:44 → M PCU 14:29
PROVIDERS: ADMIT Internal Medicine Nephrology; ATTEND Internal Medicine Nephrology
DX: J10.1 Influenza due to other identified influenza virus with other respiratory manifestations (principal); C78.6 Secondary malignant neoplasm of retroperitoneum and peritoneum; C77.5 Secondary and unspecified malignant neoplasm of intrapelvic lymph nodes; G80.8 Other cerebral palsy; Z66 Do not resuscitate; J45.909 Unspecified asthma, uncomplicated; M19.90 Unspecified osteoarthritis, unspecified site; C67.9 Malignant neoplasm of bladder, unspecified; E78.5 Hyperlipidemia, unspecified; N13.9 Obstructive and reflux uropathy, unspecified; I10 Essential (primary) hypertension; D86.9 Sarcoidosis, unspecified; Z79.899 Other long term (current) drug therapy; Z88.0 Allergy status to penicillin; Z88.5 Allergy status to narcotic agent; Z99.3 Dependence on wheelchair

== ENCOUNTER → 2024-03-29 | Outpatient (CLI) | payer MEDICARE, MEDICAID ==
[~2024-03-29] MED LIST changes: +GASTROGRAFIN SOLUTION 30ML As Ordered ONE; +ISOVUE-370 76% 100ML VIAL As Ordered ONE; +ONDA-284 PO; -ONDA8TAB8 PO; +OSEL75CA2 PO; +ZOLO50TA PO
== END ==
LOC: M RAD 06:28
PROVIDERS: ATTEND Specialist
DX: C67.9 Malignant neoplasm of bladder, unspecified (principal)
CPT/HCPCS: 71260; 74177; Q9963; Q9967

== ENCOUNTER 2024-04-18 16:43 | Inpatient (IN) | payer MEDICARE, MEDICAID ==
[~2024-04-18] VITALS: Ht 160 cm; Wt 76.2 kg
[~2024-04-18 16:43] MED LIST changes: -GASTROGRAFIN SOLUTION 30ML As Ordered ONE; -ISOVUE-370 76% 100ML VIAL As Ordered ONE; +KETO2CR TOP; +POTA-151 PO
[2024-04-18 19:24] LABS: BASO # 0.1 10^3/uL (0.0-0.2); BASO % 0.3 % (0.0-1.0); HEMOGLOBIN 14.4 g/dl (13.5-17.5); LYMPH # 0.9 10^3/uL (1.5-5.0); LYMPH % 3.9 % (24.0-44.0); MEAN CORPUSCULAR HGB CONC 31.3 g/dl (32.0-36.5); MEAN CORPUSCULAR VOLUME 76.7 fl (80.0-96.0); MONO # 1.6 10^3/uL (0.0-0.8); NEUTROPHILS # 20.2 10^3/uL (1.5-8.5); PLATELET COUNT, AUTOMATED 365 10^3/uL (150-450); WHITE BLOOD COUNT 22.9 10^3/uL (4.0-10.0)
[2024-04-18] MEDS: NS 1,000 ML IV SCH (19:34)
[2024-04-18 19:49] LABS: LIPASE 21 U/L (12-53)
[2024-04-18 19:51] LABS: ALBUMIN 2.9 G/DL (3.2-5.2); ALKALINE PHOSPHATASE 86 U/L (46-116); ALT/SGPT 25 U/L (7.0-40); AST/SGOT 22 U/L (<34); BILIRUBIN,DIRECT 0.6 MG/DL (<0.4); BILIRUBIN,TOTAL 1.3 MG/DL (0.3-1.2); BLOOD UREA NITROGEN 17 MG/DL (9-23); CALCIUM LEVEL 9.1 MG/DL (8.5-10.1); CARBON DIOXIDE LEVEL 24 MMOL/L (20-31); CHLORIDE LEVEL 101 MMOL/L (98-107); CREATININE FOR GFR 0.91 MG/DL (0.70-1.30); GLOMERULAR FILTRATION RATE > 60.0 (>56); GLUCOSE, FASTING 114 MG/DL (60-100); POTASSIUM SERUM 4.5 MMOL/L (3.5-5.1); SODIUM LEVEL 134 MMOL/L (136-145); TOTAL PROTEIN 6.9 G/DL (5.7-8.2)
[2024-04-18] MEDS ORDERED: ISOVUE-370 76% 100ML VIAL As Ordered ONE (20:07)
[2024-04-18] MEDS: cefTRIAXone SOD 2 GM in D5W MINI-BAG PLUS 50 ML IV ONE (20:29)
[2024-04-18] MEDS: ONDANSETRON 4MG 2ML VIAL IV ONE (20:30)
[2024-04-18 20:36] LABS: INR 1.12; PARTIAL THROMBOPLASTIN TIME 33.8 SECONDS (24.8-34.2)
[2024-04-18] MEDS ORDERED: ONDANSETRON 4MG 2ML VIAL As Ordered ONE (20:42)
[2024-04-18] MEDS ORDERED: MOM 30ML SUSPENSION UDC PO PRN (23:20)
[2024-04-18] MEDS ORDERED: PIPERACILLIN/TAZOBACTAM SOD 4.5 GM in D5W MINI-BAG PLUS 50 ML IV SCH (23:20)
[2024-04-18] MEDS ORDERED: MAALOX 30 ML SUSP *UDC PO PRN (23:20)
[2024-04-18] MEDS ORDERED: HOME MED LIST COMPLETE! XX SCH (23:50)
[2024-04-19] VITALS (9 sets, daily range): BP systolic 91–110; BP diastolic 59–79; TEMP 97.5–100.8; O2SAT 91–96
[2024-04-19] MEDS: VANCOMYCIN HCL 750 MG, VIAL MATE ADAPTER 1 EACH in D5W 250 ML IV ONE ×2 (01:49→02:54)
[2024-04-19] MEDS: ONDANSETRON 4MG ORAL DISINTEGRATING TAB PO PRN (01:49)
[2024-04-19] MEDS: ACETAMINOPHEN TAB 650MG DOSE (2X325MG) PO PRN (01:50)
[2024-04-19] MEDS: CEFEPIME HCL 2 GM in D5W MINI-BAG PLUS 50 ML IV SCH (04:16)
[2024-04-19 06:21] LABS: HEMATOCRIT 41.3 % (42.0-52.0); HEMOGLOBIN 12.8 g/dl (13.5-17.5); MEAN CORPUSCULAR HEMOGLOBIN 23.9 pg (27.0-33.0); MEAN CORPUSCULAR VOLUME 77.1 fl (80.0-96.0); PLATELET COUNT, AUTOMATED 324 10^3/uL (150-450); RED BLOOD COUNT 5.36 10^6/uL (4.30-6.10); WHITE BLOOD COUNT 21.2 10^3/uL (4.0-10.0)
[2024-04-19 07:00] LABS: ALBUMIN 2.7 G/DL (3.2-5.2); ALKALINE PHOSPHATASE 76 U/L (46-116); ALT/SGPT 25 U/L (7.0-40); AST/SGOT 19 U/L (<34); BILIRUBIN,TOTAL 1.1 MG/DL (0.3-1.2); BLOOD UREA NITROGEN 17 MG/DL (9-23); CALCIUM LEVEL 8.7 MG/DL (8.5-10.1); CARBON DIOXIDE LEVEL 25 MMOL/L (20-31); CHLORIDE LEVEL 101 MMOL/L (98-107); CREATININE FOR GFR 0.93 MG/DL (0.70-1.30); GLOMERULAR FILTRATION RATE > 60.0 (>56); GLUCOSE, FASTING 119 MG/DL (60-100); MAGNESIUM LEVEL 1.9 MG/DL (1.8-2.4); POTASSIUM SERUM 3.9 MMOL/L (3.5-5.1); SODIUM LEVEL 131 MMOL/L (136-145); TOTAL PROTEIN 6.4 G/DL (5.7-8.2)
[2024-04-19] MEDS: NS 1,000 ML IV SCH (08:43)
[2024-04-19] MEDS: DOCUSATE SODIUM 100MG CAPSULE PO SCH (08:44)
[2024-04-19] MEDS: HEPARIN SOD (PORCINE) 5000UNITS/ML 1ML VIAL/SYRINGE SC SCH (08:44)
[2024-04-19] MEDS ORDERED: VANCOMYCIN HCL 1,000 MG, VIAL MATE ADAPTER 1 EACH in NS 250 ML IV SCH (09:00)
[2024-04-19] MEDS: PANTOPRAZOLE 40MG VIAL IV SCH (12:11)
[2024-04-19] MEDS: SUCRALFATE SUSP 1GM/10ML UD PO SCH (12:11)
[2024-04-19] MEDS: NYSTATIN 100,000 UNITS/GM TOPICAL PWD 15GM TOP SCH (20:31)
[2024-04-19] MEDS: NS 500 ML IV ONE (22:20)
[2024-04-20 04:00] VITALS: BP 104/71; TEMP 97.6; O2SAT 92
[2024-04-20 06:03] LABS: HEMATOCRIT 36.9 % (42.0-52.0); HEMOGLOBIN 11.2 g/dl (13.5-17.5); MEAN CORPUSCULAR HEMOGLOBIN 23.9 pg (27.0-33.0); MEAN CORPUSCULAR HGB CONC 30.4 g/dl (32.0-36.5); MEAN CORPUSCULAR VOLUME 78.8 fl (80.0-96.0); PLATELET COUNT, AUTOMATED 262 10^3/uL (150-450); RED BLOOD COUNT 4.68 10^6/uL (4.30-6.10); WHITE BLOOD COUNT 17.2 10^3/uL (4.0-10.0)
[2024-04-20 06:30] LABS: ALBUMIN 2.2 G/DL (3.2-5.2); ALKALINE PHOSPHATASE 73 U/L (46-116); ALT/SGPT 22 U/L (7.0-40); AST/SGOT 21 U/L (<34); BILIRUBIN,TOTAL 0.8 MG/DL (0.3-1.2); BLOOD UREA NITROGEN 14 MG/DL (9-23); CALCIUM LEVEL 8.1 MG/DL (8.5-10.1); CARBON DIOXIDE LEVEL 25 MMOL/L (20-31); CHLORIDE LEVEL 106 MMOL/L (98-107); CREATININE FOR GFR 0.96 MG/DL (0.70-1.30); GLOMERULAR FILTRATION RATE > 60.0 (>56); GLUCOSE, FASTING 114 MG/DL (60-100); POTASSIUM SERUM 3.6 MMOL/L (3.5-5.1); SODIUM LEVEL 137 MMOL/L (136-145); TOTAL PROTEIN 5.7 G/DL (5.7-8.2)
[2024-04-20 08:00] VITALS: BP 105/72; TEMP 98.2; O2SAT 93
[2024-04-20 12:00] VITALS: BP 104/70; TEMP 98.1; O2SAT 93
[2024-04-20 20:43] VITALS: BP 104/67; TEMP 98.1; O2SAT 93
[2024-04-20 23:39] VITALS: BP 99/65; TEMP 99; O2SAT 94
[2024-04-21 04:58] VITALS: BP 103/68; TEMP 97.8; O2SAT 93
[2024-04-21 06:07] LABS: HEMATOCRIT 34.5 % (42.0-52.0); HEMOGLOBIN 10.6 g/dl (13.5-17.5); MEAN CORPUSCULAR HEMOGLOBIN 23.9 pg (27.0-33.0); MEAN CORPUSCULAR HGB CONC 30.7 g/dl (32.0-36.5); MEAN CORPUSCULAR VOLUME 77.7 fl (80.0-96.0); PLATELET COUNT, AUTOMATED 270 10^3/uL (150-450); RED BLOOD COUNT 4.44 10^6/uL (4.30-6.10); WHITE BLOOD COUNT 9.9 10^3/uL (4.0-10.0)
[2024-04-21 06:35] LABS: ALBUMIN 2.1 G/DL (3.2-5.2); ALKALINE PHOSPHATASE 70 U/L (46-116); ALT/SGPT 42 U/L (7.0-40); AST/SGOT 57 U/L (<34); BILIRUBIN,TOTAL 0.6 MG/DL (0.3-1.2); BLOOD UREA NITROGEN 10 MG/DL (9-23); CALCIUM LEVEL 8.1 MG/DL (8.5-10.1); CARBON DIOXIDE LEVEL 25 MMOL/L (20-31); CHLORIDE LEVEL 107 MMOL/L (98-107); GLOMERULAR FILTRATION RATE > 60.0 (>56); GLUCOSE, FASTING 92 MG/DL (60-100); POTASSIUM SERUM 3.1 MMOL/L (3.5-5.1); SODIUM LEVEL 138 MMOL/L (136-145); TOTAL PROTEIN 5.5 G/DL (5.7-8.2)
[2024-04-21] MEDS: POTASSIUM CHLORIDE 10MEQ SR TABLET PO ONE ×2 (09:09→10:08)
[2024-04-21 12:00] VITALS: BP 106/68; TEMP 98; O2SAT 98
[2024-04-21 15:20] LABS: PROCALCITONIN 0.35 ng/ml
[2024-04-21 20:05] VITALS: BP 109/70; TEMP 98.6; O2SAT 95
[2024-04-21 22:38] VITALS: O2SAT 92
[2024-04-22 04:00] VITALS: BP 110/71; TEMP 97.9; O2SAT 93
[2024-04-22 06:51] LABS: HEMATOCRIT 34.1 % (42.0-52.0); HEMOGLOBIN 10.6 g/dl (13.5-17.5); MEAN CORPUSCULAR HGB CONC 31.1 g/dl (32.0-36.5); MEAN CORPUSCULAR VOLUME 77.1 fl (80.0-96.0); PLATELET COUNT, AUTOMATED 304 10^3/uL (150-450); RED BLOOD COUNT 4.42 10^6/uL (4.30-6.10)
[2024-04-22 07:20] LABS: ALBUMIN 2.1 G/DL (3.2-5.2); ALKALINE PHOSPHATASE 73 U/L (46-116); ALT/SGPT 65 U/L (7.0-40); AST/SGOT 76 U/L (<34); BILIRUBIN,TOTAL 0.6 MG/DL (0.3-1.2); BLOOD UREA NITROGEN 7 MG/DL (9-23); CALCIUM LEVEL 7.9 MG/DL (8.5-10.1); CARBON DIOXIDE LEVEL 24 MMOL/L (20-31); CHLORIDE LEVEL 108 MMOL/L (98-107); CREATININE FOR GFR 0.88 MG/DL (0.70-1.30); GLOMERULAR FILTRATION RATE > 60.0 (>56); GLUCOSE, FASTING 105 MG/DL (60-100); SODIUM LEVEL 140 MMOL/L (136-145); TOTAL PROTEIN 5.6 G/DL (5.7-8.2)
[2024-04-22] MEDS ORDERED: CEFD300CAP PO (10:21)
[2024-04-22] MEDS ORDERED: METR-265 PO (10:21)
[2024-04-22] MEDS ORDERED: PROB250C PO (10:24)
[2024-04-22] MEDS: POTASSIUM CHLORIDE 10MEQ SR TABLET PO ONE ×2 (10:44→13:08)
[2024-04-22 12:00] VITALS: BP 127/80; TEMP 97.5; O2SAT 82
== END 2024-04-22 14:14 | disposition home or self-care (01) | DRG 698 ==
LOC: M ED 16:43 → M ED INP 23:16 → M MSPAV 04-19 01:00
PROVIDERS: ADMIT Family Medicine; ATTEND Internal Medicine
PROC: 0T9B70Z Drainage of Bladder with Drainage Device, Via Natural or Artificial Opening (ICD-10-PCS; principal; 2024-04-19)
DX: T83.511A Infection and inflammatory reaction due to indwelling urethral catheter, initial encounter (principal); A41.9 Sepsis, unspecified organism; K81.0 Acute cholecystitis; E87.1 Hypo-osmolality and hyponatremia; Y84.6 Urinary catheterization as the cause of abnormal reaction of the patient, or of later complication, without mention of misadventure at the time of the procedure; G80.9 Cerebral palsy, unspecified; K59.00 Constipation, unspecified; K29.80 Duodenitis without bleeding; J45.909 Unspecified asthma, uncomplicated; F41.9 Anxiety disorder, unspecified; F17.200 Nicotine dependence, unspecified, uncomplicated; I95.9 Hypotension, unspecified; Z66 Do not resuscitate; E87.6 Hypokalemia; Z96.0 Presence of urogenital implants; Z99.3 Dependence on wheelchair; Z79.899 Other long term (current) drug therapy; Z88.0 Allergy status to penicillin; Z88.5 Allergy status to narcotic agent; Z85.51 Personal history of malignant neoplasm of bladder

== ENCOUNTER 2024-05-16 11:57 | Inpatient (IN) | payer MEDICARE, MEDICAID ==
[~2024-05-16] VITALS: Ht 160 cm; Wt 72.1 kg
[~2024-05-16 11:57] MED LIST changes: +CEFD300CAP PO; +METR-265 PO; +PROB250C PO
[2024-05-16 12:31] LABS: VENOUS BASE EXCESS -0.8 (-2.0-2.0); VENOUS HCO3 23.4 MMOL/L (23.0-27.0); VENOUS O2 SATURATION 95.6 % (60.0-80.0); VENOUS PARTIAL PRESSURE CO2 37.3 mmHg (38.0-50.0); VENOUS PARTIAL PRESSURE O2 80.3 mmHg (30.0-50.0); VENOUS PH 7.415 UNITS (7.330-7.430); VENOUS STANDARD HCO3 23.8 MMOL/L; VENOUS TOTAL CO2 24.5 MMOL/L (24.0-28.0)
[2024-05-16] MEDS: cefTRIAXone SOD 2 GM in D5W MINI-BAG PLUS 50 ML IV ONE (12:39)
[2024-05-16 12:44] LABS: BASO % 0.1 % (0.0-1.0); EOS % 0.1 % (0.0-3.0); HEMATOCRIT 43.8 % (42.0-52.0); HEMOGLOBIN 13.6 g/dl (13.5-17.5); LYMPH # 0.6 10^3/uL (1.5-5.0); MEAN CORPUSCULAR HGB CONC 31.1 g/dl (32.0-36.5); MEAN CORPUSCULAR VOLUME 77.2 fl (80.0-96.0); MONO # 1.8 10^3/uL (0.0-0.8); MONO % 9.4 % (2.0-8.0); NEUTROPHILS # 16.8 10^3/uL (1.5-8.5); NEUTROPHILS % 86.7 % (36.0-66.0); PLATELET COUNT, AUTOMATED 295 10^3/uL (150-450); RED BLOOD COUNT 5.67 10^6/uL (4.30-6.10); WHITE BLOOD COUNT 19.4 10^3/uL (4.0-10.0)
[2024-05-16 12:53] LABS: AMYLASE 68 U/L (30-118)
[2024-05-16 12:54] LABS: ALBUMIN 2.9 G/DL (3.2-5.2); ALKALINE PHOSPHATASE 75 U/L (46-116); ALT/SGPT 19 U/L (7.0-40); AST/SGOT 16 U/L (<34); BILIRUBIN,DIRECT 0.4 MG/DL (<0.4); BILIRUBIN,TOTAL 0.9 MG/DL (0.3-1.2); BLOOD UREA NITROGEN 25 MG/DL (9-23); CALCIUM LEVEL 8.7 MG/DL (8.5-10.1); CARBON DIOXIDE LEVEL 23 MMOL/L (20-31); CHLORIDE LEVEL 107 MMOL/L (98-107); CREATININE FOR GFR 1.06 MG/DL (0.70-1.30); GLOMERULAR FILTRATION RATE > 60.0 (>56); GLUCOSE, FASTING 126 MG/DL (60-100); POTASSIUM SERUM 4.2 MMOL/L (3.5-5.1); SODIUM LEVEL 138 MMOL/L (136-145); TOTAL PROTEIN 6.5 G/DL (5.7-8.2)
[2024-05-16 13:01] LABS: PROCALCITONIN 1.22 ng/ml
[2024-05-16] MEDS: NS 2,160 ML in IV 1 EA IV ONE (14:18)
[2024-05-16] MEDS ORDERED: ISOVUE-370 76% 100ML VIAL As Ordered ONE (15:09)
[2024-05-16] MEDS ORDERED: POTA-151 PO (15:26)
[2024-05-16] MEDS ORDERED: PROC10TA5 PO (15:26)
[2024-05-16] MEDS ORDERED: KETO2CR TOP (15:26)
[2024-05-16] MEDS ORDERED: GABA-284 PO (15:26)
[2024-05-16] MEDS ORDERED: LIDO30CR18 TOP (15:26)
[2024-05-16] MEDS ORDERED: HOME MED LIST COMPLETE! XX SCH (15:30)
[2024-05-16] MEDS ORDERED: MOM 30ML SUSPENSION UDC PO PRN (17:55)
[2024-05-16] MEDS ORDERED: MAALOX 30 ML SUSP *UDC PO PRN (17:55)
[2024-05-16] MEDS ORDERED: DOCUSATE SODIUM 100MG CAPSULE PO PRN (18:05)
[2024-05-16] MEDS ORDERED: PROCHLORPERAZINE 5MG TAB PO PRN (18:05)
[2024-05-16] MEDS: NS 1,000 ML IV SCH (20:18)
[2024-05-16] MEDS: ACETAMINOPHEN TAB 650MG DOSE (2X325MG) PO PRN (20:31)
[2024-05-16] MEDS: KETOROLAC 30 MG/ML 1ML VIAL IV ONE (21:22)
[2024-05-16] MEDS: CEFEPIME HCL 2 GM in D5W MINI-BAG PLUS 50 ML IV SCH (21:22)
[2024-05-16 23:30] VITALS: BP 94/63; TEMP 98.6; O2SAT 96
[2024-05-16] MEDS: GABAPENTIN 400MG CAP PO SCH (23:47)
[2024-05-17] VITALS (7 sets, daily range): BP systolic 91–117; BP diastolic 62–86; TEMP 97.9–102.3; O2SAT 92–95
[2024-05-17 05:54] LABS: HEMATOCRIT 40.4 % (42.0-52.0); MEAN CORPUSCULAR HEMOGLOBIN 23.8 pg (27.0-33.0); MEAN CORPUSCULAR HGB CONC 29.7 g/dl (32.0-36.5); MEAN CORPUSCULAR VOLUME 80.2 fl (80.0-96.0); PLATELET COUNT, AUTOMATED 251 10^3/uL (150-450); RED BLOOD COUNT 5.04 10^6/uL (4.30-6.10); WHITE BLOOD COUNT 16.3 10^3/uL (4.0-10.0)
[2024-05-17 06:18] LABS: ALBUMIN 2.7 G/DL (3.2-5.2); ALKALINE PHOSPHATASE 70 U/L (46-116); ALT/SGPT 21 U/L (7.0-40); AST/SGOT 15 U/L (<34); BILIRUBIN,TOTAL 0.8 MG/DL (0.3-1.2); BLOOD UREA NITROGEN 17 MG/DL (9-23); CALCIUM LEVEL 8.4 MG/DL (8.5-10.1); CARBON DIOXIDE LEVEL 25 MMOL/L (20-31); CHLORIDE LEVEL 107 MMOL/L (98-107); CREATININE FOR GFR 1.08 MG/DL (0.70-1.30); GLOMERULAR FILTRATION RATE > 60.0 (>56); GLUCOSE, FASTING 112 MG/DL (60-100); MAGNESIUM LEVEL 1.7 MG/DL (1.8-2.4); POTASSIUM SERUM 3.8 MMOL/L (3.5-5.1); SODIUM LEVEL 141 MMOL/L (136-145); TOTAL PROTEIN 6.1 G/DL (5.7-8.2)
[2024-05-17] MEDS: LACTOBACILLUS ACIDOPHILUS CAP (BACID) PO SCH (08:56)
[2024-05-17] MEDS: ENOXAPARIN 40MG/0.4ML SYRINGE (J1650 PER 10MG) SC SCH (08:57)
[2024-05-17] MEDS: POTASSIUM CHLORIDE 10MEQ SR TABLET PO SCH (08:57)
[2024-05-17] MEDS: SERTRALINE HCL 50 MG TAB PO SCH (08:57)
[2024-05-17] MEDS: MAGNESIUM OXIDE 400MG TAB (MAG-OX) PO ONE (10:49)
[2024-05-17] MEDS ORDERED: cefTRIAXone SOD 2 GM in D5W MINI-BAG PLUS 50 ML IV SCH (12:00)
[2024-05-17] MEDS: BACLOFEN 10 MG TAB PO PRN (21:45)
[2024-05-18 04:00] VITALS: BP 118/70; TEMP 101.2; O2SAT 96
[2024-05-18 06:30] VITALS: TEMP 99.1
[2024-05-18 07:10] LABS: GC DNA AMPLIFICATION NEGATIVE (NEGATIVE)
[2024-05-18] MEDS: MAGNESIUM OXIDE 400MG TAB (MAG-OX) PO SCH (09:36)
[2024-05-18 10:22] LABS: Trichomonas vaginalis (AMP) NOT DETECTED (NEGATIVE)
[2024-05-18 12:00] VITALS: BP 107/74; TEMP 98.2; O2SAT 94
[2024-05-18 14:30] VITALS: TEMP 98.6
[2024-05-18 20:00] VITALS: BP 104/75; TEMP 101.1; O2SAT 92
[2024-05-18] MEDS ORDERED: FIDAXOMICIN 200 MG TAB (DIFICID) PO SCH (21:00)
[2024-05-18 23:47] VITALS: TEMP 99.9
[2024-05-19 04:25] VITALS: BP 120/74; TEMP 98.6; O2SAT 94
[2024-05-19 06:22] LABS: HEMATOCRIT 37.1 % (42.0-52.0); HEMOGLOBIN 11.1 g/dl (13.5-17.5); MEAN CORPUSCULAR HGB CONC 29.9 g/dl (32.0-36.5); MEAN CORPUSCULAR VOLUME 80.3 fl (80.0-96.0); PLATELET COUNT, AUTOMATED 271 10^3/uL (150-450); RED BLOOD COUNT 4.62 10^6/uL (4.30-6.10); WHITE BLOOD COUNT 9.7 10^3/uL (4.0-10.0)
[2024-05-19 06:52] LABS: ALBUMIN 2.3 G/DL (3.2-5.2); ALKALINE PHOSPHATASE 67 U/L (46-116); ALT/SGPT 36 U/L (7.0-40); AST/SGOT 41 U/L (<34); BILIRUBIN,TOTAL 0.4 MG/DL (0.3-1.2); BLOOD UREA NITROGEN 11 MG/DL (9-23); CALCIUM LEVEL 8.6 MG/DL (8.5-10.1); CARBON DIOXIDE LEVEL 26 MMOL/L (20-31); CHLORIDE LEVEL 109 MMOL/L (98-107); CREATININE FOR GFR 0.92 MG/DL (0.70-1.30); GLOMERULAR FILTRATION RATE > 60.0 (>56); GLUCOSE, FASTING 92 MG/DL (60-100); POTASSIUM SERUM 3.3 MMOL/L (3.5-5.1); SODIUM LEVEL 141 MMOL/L (136-145); TOTAL PROTEIN 5.5 G/DL (5.7-8.2)
[2024-05-19] MEDS: NORCO, ANEXSIA 5/325MG TABLET (HYDROcodone/ACETAMINOPHEN) PO PRN (10:04)
[2024-05-19] MEDS ORDERED: LIDOCAINE 1% MDV 20ML VIAL As Ordered ONE (10:57)
[2024-05-19 12:32] VITALS: BP 105/68; TEMP 97.3; O2SAT 92
[2024-05-19 20:00] VITALS: BP 121/83; TEMP 99.1; O2SAT 96
[2024-05-20 03:20] VITALS: BP 102/71; TEMP 97.6; O2SAT 80
[2024-05-20 11:40] VITALS: BP 120/82; TEMP 97.2; O2SAT 93
[2024-05-20 15:21] LABS: BASO % 0.5 % (0.0-1.0); EOS # 0.2 10^3/uL (0.0-0.5); HEMOGLOBIN 11.2 g/dl (13.5-17.5); LYMPH # 0.8 10^3/uL (1.5-5.0); LYMPH % 14.1 % (24.0-44.0); MEAN CORPUSCULAR HEMOGLOBIN 23.9 pg (27.0-33.0); MEAN CORPUSCULAR HGB CONC 30.3 g/dl (32.0-36.5); MEAN CORPUSCULAR VOLUME 79.1 fl (80.0-96.0); MONO # 0.5 10^3/uL (0.0-0.8); MONO % 8.4 % (2.0-8.0); NEUTROPHILS % 72.6 % (36.0-66.0); PLATELET COUNT, AUTOMATED 270 10^3/uL (150-450); RED BLOOD COUNT 4.68 10^6/uL (4.30-6.10); WHITE BLOOD COUNT 5.5 10^3/uL (4.0-10.0)
[2024-05-20 15:45] LABS: ERYTHROCYTE SEDIMENTATION RATE 99 mm/hr (0-20)
[2024-05-20 15:52] LABS: BLOOD UREA NITROGEN 13 MG/DL (9-23); CALCIUM LEVEL 7.6 MG/DL (8.5-10.1); CARBON DIOXIDE LEVEL 23 MMOL/L (20-31); CHLORIDE LEVEL 110 MMOL/L (98-107); CREATININE FOR GFR 0.74 MG/DL (0.70-1.30); GLOMERULAR FILTRATION RATE > 60.0 (>56); GLUCOSE, FASTING 133 MG/DL (60-100); POTASSIUM SERUM 3.2 MMOL/L (3.5-5.1); SODIUM LEVEL 141 MMOL/L (136-145)
[2024-05-20 20:50] VITALS: BP 113/75; TEMP 97; O2SAT 96
[2024-05-21 04:10] VITALS: BP 112/76; TEMP 97.8; O2SAT 94
[2024-05-21 06:11] LABS: BASO % 0.6 % (0.0-1.0); EOS # 0.2 10^3/uL (0.0-0.5); EOS % 2.9 % (0.0-3.0); HEMATOCRIT 36.9 % (42.0-52.0); HEMOGLOBIN 11.2 g/dl (13.5-17.5); LYMPH % 13.6 % (24.0-44.0); MEAN CORPUSCULAR HEMOGLOBIN 23.9 pg (27.0-33.0); MEAN CORPUSCULAR HGB CONC 30.4 g/dl (32.0-36.5); MEAN CORPUSCULAR VOLUME 78.8 fl (80.0-96.0); MONO # 0.7 10^3/uL (0.0-0.8); MONO % 9.1 % (2.0-8.0); NEUTROPHILS # 5.2 10^3/uL (1.5-8.5); NEUTROPHILS % 73.2 % (36.0-66.0); PLATELET COUNT, AUTOMATED 295 10^3/uL (150-450); RED BLOOD COUNT 4.68 10^6/uL (4.30-6.10); WHITE BLOOD COUNT 7.1 10^3/uL (4.0-10.0)
[2024-05-21 06:43] LABS: BLOOD UREA NITROGEN 10 MG/DL (9-23); CARBON DIOXIDE LEVEL 26 MMOL/L (20-31); CHLORIDE LEVEL 113 MMOL/L (98-107); CREATININE FOR GFR 0.74 MG/DL (0.70-1.30); GLOMERULAR FILTRATION RATE > 60.0 (>56); GLUCOSE, FASTING 86 MG/DL (60-100); POTASSIUM SERUM 3.4 MMOL/L (3.5-5.1); SODIUM LEVEL 144 MMOL/L (136-145)
[2024-05-21 12:00] VITALS: BP 108/64; TEMP 97.9; O2SAT 94
[2024-05-21 20:00] VITALS: BP 108/65; TEMP 98.1; O2SAT 95
[2024-05-22 04:30] VITALS: BP 110/65; TEMP 98.1; O2SAT 95
[2024-05-22 05:57] LABS: BASO % 0.7 % (0.0-1.0); EOS # 0.2 10^3/uL (0.0-0.5); EOS % 3.6 % (0.0-3.0); HEMATOCRIT 37.5 % (42.0-52.0); HEMOGLOBIN 11.1 g/dl (13.5-17.5); LYMPH % 17.5 % (24.0-44.0); MEAN CORPUSCULAR HEMOGLOBIN 23.6 pg (27.0-33.0); MEAN CORPUSCULAR HGB CONC 29.6 g/dl (32.0-36.5); MEAN CORPUSCULAR VOLUME 79.6 fl (80.0-96.0); MONO # 0.6 10^3/uL (0.0-0.8); MONO % 9.8 % (2.0-8.0); NEUTROPHILS # 3.8 10^3/uL (1.5-8.5); NEUTROPHILS % 67.5 % (36.0-66.0); PLATELET COUNT, AUTOMATED 304 10^3/uL (150-450); RED BLOOD COUNT 4.71 10^6/uL (4.30-6.10); WHITE BLOOD COUNT 5.6 10^3/uL (4.0-10.0)
[2024-05-22 06:28] LABS: BLOOD UREA NITROGEN 7 MG/DL (9-23); CALCIUM LEVEL 8.1 MG/DL (8.5-10.1); CARBON DIOXIDE LEVEL 25 MMOL/L (20-31); CHLORIDE LEVEL 113 MMOL/L (98-107); CREATININE FOR GFR 0.71 MG/DL (0.70-1.30); GLOMERULAR FILTRATION RATE > 60.0 (>56); GLUCOSE, FASTING 136 MG/DL (60-100); POTASSIUM SERUM 2.9 MMOL/L (3.5-5.1); SODIUM LEVEL 143 MMOL/L (136-145)
[2024-05-22] MEDS: POTASSIUM CHLORIDE 10MEQ SR TABLET PO ONE (06:44)
[2024-05-22 12:00] VITALS: BP 106/66; TEMP 97.9; O2SAT 94
[2024-05-22 20:00] VITALS: BP 109/73; TEMP 98.2; O2SAT 98
[2024-05-22] MEDS: FIDAXOMICIN 200 MG TAB (DIFICID) PO SCH (20:15)
[2024-05-23 04:00] VITALS: BP 124/80; TEMP 98.2; O2SAT 96
[2024-05-23 06:55] LABS: BASO % 0.6 % (0.0-1.0); EOS # 0.2 10^3/uL (0.0-0.5); EOS % 2.4 % (0.0-3.0); HEMATOCRIT 35.6 % (42.0-52.0); HEMOGLOBIN 10.6 g/dl (13.5-17.5); LYMPH # 1.2 10^3/uL (1.5-5.0); LYMPH % 16.9 % (24.0-44.0); MEAN CORPUSCULAR HEMOGLOBIN 23.9 pg (27.0-33.0); MEAN CORPUSCULAR HGB CONC 29.8 g/dl (32.0-36.5); MEAN CORPUSCULAR VOLUME 80.2 fl (80.0-96.0); MONO # 0.6 10^3/uL (0.0-0.8); MONO % 9.1 % (2.0-8.0); NEUTROPHILS # 4.9 10^3/uL (1.5-8.5); NEUTROPHILS % 69.9 % (36.0-66.0); PLATELET COUNT, AUTOMATED 315 10^3/uL (150-450); RED BLOOD COUNT 4.44 10^6/uL (4.30-6.10); WHITE BLOOD COUNT 7.1 10^3/uL (4.0-10.0)
[2024-05-23 07:23] LABS: BLOOD UREA NITROGEN 14 MG/DL (9-23); CALCIUM LEVEL 7.9 MG/DL (8.5-10.1); CARBON DIOXIDE LEVEL 28 MMOL/L (20-31); CHLORIDE LEVEL 111 MMOL/L (98-107); CREATININE FOR GFR 0.88 MG/DL (0.70-1.30); GLOMERULAR FILTRATION RATE > 60.0 (>56); GLUCOSE, FASTING 84 MG/DL (60-100); POTASSIUM SERUM 3.7 MMOL/L (3.5-5.1); SODIUM LEVEL 142 MMOL/L (136-145)
[2024-05-23 11:37] VITALS: BP 124/81; TEMP 97.9; O2SAT 98
[2024-05-23 20:00] VITALS: BP 112/78; TEMP 98.4; O2SAT 94
[2024-05-23] MEDS: CEFEPIME HCL 2 GM in D5W MINI-BAG PLUS 50 ML IV SCH (21:35)
[2024-05-24 04:00] VITALS: BP 82/64; TEMP 97.7; O2SAT 93
[2024-05-24] MEDS: NS 500 ML IV ONE (04:57)
[2024-05-24 05:27] VITALS: BP 82/46
[2024-05-24] MEDS: NS 1,000 ML IV ONE (05:57)
[2024-05-24 06:17] LABS: BASO # 0.1 10^3/uL (0.0-0.2); BASO % 0.6 % (0.0-1.0); EOS # 0.2 10^3/uL (0.0-0.5); HEMATOCRIT 36.8 % (42.0-52.0); HEMOGLOBIN 10.8 g/dl (13.5-17.5); LYMPH # 1.3 10^3/uL (1.5-5.0); LYMPH % 16.4 % (24.0-44.0); MEAN CORPUSCULAR HEMOGLOBIN 23.4 pg (27.0-33.0); MEAN CORPUSCULAR HGB CONC 29.3 g/dl (32.0-36.5); MEAN CORPUSCULAR VOLUME 79.8 fl (80.0-96.0); MONO # 1.1 10^3/uL (0.0-0.8); MONO % 13.5 % (2.0-8.0); NEUTROPHILS # 5.2 10^3/uL (1.5-8.5); NEUTROPHILS % 65.9 % (36.0-66.0); PLATELET COUNT, AUTOMATED 345 10^3/uL (150-450); RED BLOOD COUNT 4.61 10^6/uL (4.30-6.10); WHITE BLOOD COUNT 7.9 10^3/uL (4.0-10.0)
[2024-05-24 06:24] VITALS: BP 105/65
[2024-05-24 06:45] LABS: BLOOD UREA NITROGEN 9 MG/DL (9-23); CARBON DIOXIDE LEVEL 28 MMOL/L (20-31); CHLORIDE LEVEL 110 MMOL/L (98-107); CREATININE FOR GFR 0.95 MG/DL (0.70-1.30); GLOMERULAR FILTRATION RATE > 60.0 (>56); GLUCOSE, FASTING 71 MG/DL (60-100); POTASSIUM SERUM 3.6 MMOL/L (3.5-5.1); SODIUM LEVEL 145 MMOL/L (136-145)
[2024-05-24 12:00] VITALS: BP 122/79; TEMP 98.1; O2SAT 93
[2024-05-24 14:00] VITALS: BP 122/79; TEMP 98.1; O2SAT 93
[2024-05-24 20:04] VITALS: BP 122/78; TEMP 98.4; O2SAT 94
[2024-05-24] MEDS: POTASSIUM CHLORIDE 10MEQ SR TABLET PO SCH (20:53)
[2024-05-25 04:05] VITALS: BP 117/77; TEMP 98.1; O2SAT 96
[2024-05-25 06:24] LABS: BASO % 0.5 % (0.0-1.0); EOS # 0.2 10^3/uL (0.0-0.5); EOS % 2.2 % (0.0-3.0); HEMATOCRIT 36.7 % (42.0-52.0); HEMOGLOBIN 11.1 g/dl (13.5-17.5); LYMPH # 1.1 10^3/uL (1.5-5.0); LYMPH % 14.3 % (24.0-44.0); MEAN CORPUSCULAR HGB CONC 30.2 g/dl (32.0-36.5); MEAN CORPUSCULAR VOLUME 79.3 fl (80.0-96.0); MONO # 0.8 10^3/uL (0.0-0.8); MONO % 10.2 % (2.0-8.0); NEUTROPHILS # 5.6 10^3/uL (1.5-8.5); NEUTROPHILS % 71.4 % (36.0-66.0); PLATELET COUNT, AUTOMATED 299 10^3/uL (150-450); RED BLOOD COUNT 4.63 10^6/uL (4.30-6.10); WHITE BLOOD COUNT 7.9 10^3/uL (4.0-10.0)
[2024-05-25 06:36] LABS: BLOOD UREA NITROGEN 10 MG/DL (9-23); CALCIUM LEVEL 8.6 MG/DL (8.5-10.1); CARBON DIOXIDE LEVEL 28 MMOL/L (20-31); CHLORIDE LEVEL 108 MMOL/L (98-107); CREATININE FOR GFR 0.82 MG/DL (0.70-1.30); GLOMERULAR FILTRATION RATE > 60.0 (>56); GLUCOSE, FASTING 90 MG/DL (60-100); POTASSIUM SERUM 3.9 MMOL/L (3.5-5.1); SODIUM LEVEL 142 MMOL/L (136-145)
[2024-05-25 12:00] VITALS: BP 118/78; TEMP 98.2; O2SAT 98
[2024-05-25 20:39] VITALS: BP 117/79; TEMP 98.6; O2SAT 93
[2024-05-25 21:57] VITALS: BP 117/79; TEMP 98.6; O2SAT 93
[2024-05-26 04:00] VITALS: BP 116/72; TEMP 98.1; O2SAT 94
[2024-05-26 06:21] LABS: BASO % 0.4 % (0.0-1.0); EOS # 0.2 10^3/uL (0.0-0.5); EOS % 2.3 % (0.0-3.0); HEMATOCRIT 38.5 % (42.0-52.0); HEMOGLOBIN 11.5 g/dl (13.5-17.5); LYMPH # 1.2 10^3/uL (1.5-5.0); LYMPH % 15.4 % (24.0-44.0); MEAN CORPUSCULAR HEMOGLOBIN 23.6 pg (27.0-33.0); MEAN CORPUSCULAR HGB CONC 29.9 g/dl (32.0-36.5); MEAN CORPUSCULAR VOLUME 78.9 fl (80.0-96.0); MONO # 0.8 10^3/uL (0.0-0.8); MONO % 11.1 % (2.0-8.0); NEUTROPHILS # 5.2 10^3/uL (1.5-8.5); NEUTROPHILS % 69.7 % (36.0-66.0); PLATELET COUNT, AUTOMATED 337 10^3/uL (150-450); RED BLOOD COUNT 4.88 10^6/uL (4.30-6.10); WHITE BLOOD COUNT 7.5 10^3/uL (4.0-10.0)
[2024-05-26 11:45] VITALS: BP 117/76; TEMP 97.7; O2SAT 96
== END 2024-05-26 13:18 | disposition home health service (06) | DRG 698 ==
LOC: EDBD 11:57 → M ED 11:57 → M ED INP 17:55 → M MSPAV 23:08
PROVIDERS: ADMIT Student in an Organized Health Care Education/Training Program; ATTEND Preventive Medicine Undersea and Hyperbaric Medicine
DX: T83.511A Infection and inflammatory reaction due to indwelling urethral catheter, initial encounter (principal); G80.0 Spastic quadriplegic cerebral palsy; A41.9 Sepsis, unspecified organism; A04.72 Enterocolitis due to Clostridium difficile, not specified as recurrent; C67.5 Malignant neoplasm of bladder neck; T83.028A Displacement of other urinary catheter, initial encounter; J45.909 Unspecified asthma, uncomplicated; M19.93 Secondary osteoarthritis, unspecified site; I10 Essential (primary) hypertension; B96.5 Pseudomonas (aeruginosa) (mallei) (pseudomallei) as the cause of diseases classified elsewhere; E78.5 Hyperlipidemia, unspecified; K29.80 Duodenitis without bleeding; F32.A Depression, unspecified; F41.9 Anxiety disorder, unspecified; Z66 Do not resuscitate; Z79.899 Other long term (current) drug therapy; Z88.0 Allergy status to penicillin; Z88.5 Allergy status to narcotic agent; Z92.3 Personal history of irradiation; Z99.3 Dependence on wheelchair; Z92.21 Personal history of antineoplastic chemotherapy; Z96.0 Presence of urogenital implants

== ENCOUNTER → 2024-06-16 | Outpatient (CLI) | payer MEDICARE, MEDICAID ==
[~2024-06-16] MED LIST changes: +CRAN500C11 PO; +GABA-284 PO; +MORP15TA2 PO; +SENN-186 PO
[2024-06-16 10:34] VITALS: BP 100/75; O2SAT 97
== END ==
LOC: M PAL 10:25
PROVIDERS: ATTEND Nurse Practitioner Adult Health
DX: G89.29 Other chronic pain (principal); C67.9 Malignant neoplasm of bladder, unspecified; M25.559 Pain in unspecified hip; M54.9 Dorsalgia, unspecified; G80.9 Cerebral palsy, unspecified; F17.220 Nicotine dependence, chewing tobacco, uncomplicated; Z66 Do not resuscitate; Z51.5 Encounter for palliative care; Z79.891 Long term (current) use of opiate analgesic; Z79.899 Other long term (current) drug therapy; Z87.440 Personal history of urinary (tract) infections; Z88.0 Allergy status to penicillin; Z88.1 Allergy status to other antibiotic agents; Z88.5 Allergy status to narcotic agent; Z92.3 Personal history of irradiation; Z92.21 Personal history of antineoplastic chemotherapy; Z96.0 Presence of urogenital implants; Z99.3 Dependence on wheelchair

== ENCOUNTER → 2024-07-20 | Outpatient (CLI) | payer MEDICARE, MEDICAID ==
[~2024-07-20] MED LIST changes: -CRAN500C11 PO; +CVS500CA5 PO; +GABA-1172 PO; -GABA-282 PO; +LEVO1TAB39
== END ==
LOC: M PAL 10:02
PROVIDERS: ATTEND Nurse Practitioner Adult Health
DX: G89.29 Other chronic pain (principal); C67.9 Malignant neoplasm of bladder, unspecified; M25.559 Pain in unspecified hip; M54.9 Dorsalgia, unspecified; G80.9 Cerebral palsy, unspecified; N39.0 Urinary tract infection, site not specified; K59.00 Constipation, unspecified; F17.220 Nicotine dependence, chewing tobacco, uncomplicated; Z66 Do not resuscitate; Z51.5 Encounter for palliative care; Z79.620 Long term (current) use of immunosuppressive biologic; Z79.891 Long term (current) use of opiate analgesic; Z79.899 Other long term (current) drug therapy; Z88.0 Allergy status to penicillin; Z88.1 Allergy status to other antibiotic agents; Z88.5 Allergy status to narcotic agent; Z92.3 Personal history of irradiation; Z92.21 Personal history of antineoplastic chemotherapy; Z96.0 Presence of urogenital implants; Z99.3 Dependence on wheelchair

== ENCOUNTER → 2024-08-04 | Outpatient (CLI) | payer MEDICAID, MEDICARE | LOC: M ONCR 09:59 | PROVIDERS: ATTEND General Practice | DX: C67.9 Malignant neoplasm of bladder, unspecified (principal); C77.5 Secondary and unspecified malignant neoplasm of intrapelvic lymph nodes; G80.9 Cerebral palsy, unspecified; R91.1 Solitary pulmonary nodule; Z99.81 Dependence on supplemental oxygen; Z79.620 Long term (current) use of immunosuppressive biologic; Z79.891 Long term (current) use of opiate analgesic; Z79.899 Other long term (current) drug therapy; Z87.440 Personal history of urinary (tract) infections; Z88.0 Allergy status to penicillin; Z88.5 Allergy status to narcotic agent; Z92.3 Personal history of irradiation ==

== ENCOUNTER 2024-08-16 16:53 | Inpatient (IN) | payer MEDICAID, MEDICARE, OTHER ==
[~2024-08-16] VITALS: Ht 160 cm; Wt 75.7 kg
[~2024-08-16 16:53] MED LIST changes: -LEVO1TAB39; +LEVO1TAB39 PO
[2024-08-16] MEDS ORDERED: SENN1TAB85 PO (18:42)
[2024-08-16] MEDS ORDERED: MORP15TA2 PO (18:42)
[2024-08-16] MEDS ORDERED: HOME MED LIST COMPLETE! XX SCH (18:45)
[2024-08-16 19:24] LABS: BASO % 0.3 % (0.0-1.0); EOS # 0.3 10^3/uL (0.0-0.5); EOS % 3.6 % (0.0-3.0); HEMOGLOBIN 13.5 g/dl (13.5-17.5); LYMPH # 0.6 10^3/uL (1.5-5.0); LYMPH % 7.3 % (24.0-44.0); MEAN CORPUSCULAR HGB CONC 30.7 g/dl (32.0-36.5); MEAN CORPUSCULAR VOLUME 78.2 fl (80.0-96.0); MONO # 1.3 10^3/uL (0.0-0.8); MONO % 14.4 % (2.0-8.0); NEUTROPHILS # 6.5 10^3/uL (1.5-8.5); NEUTROPHILS % 74.1 % (36.0-66.0); PLATELET COUNT, AUTOMATED 292 10^3/uL (150-450); RED BLOOD COUNT 5.63 10^6/uL (4.30-6.10); WHITE BLOOD COUNT 8.8 10^3/uL (4.0-10.0)
[2024-08-16 19:51] LABS: ALKALINE PHOSPHATASE 83 U/L (46-116); ALT/SGPT 18 U/L (7.0-40); AST/SGOT 20 U/L (<34); BILIRUBIN,DIRECT 0.2 MG/DL (<0.4); BILIRUBIN,TOTAL 0.5 MG/DL (0.3-1.2); BLOOD UREA NITROGEN 18 MG/DL (9-23); CALCIUM LEVEL 9.1 MG/DL (8.5-10.1); CARBON DIOXIDE LEVEL 26 MMOL/L (20-31); CHLORIDE LEVEL 108 MMOL/L (98-107); CREATININE FOR GFR 0.93 MG/DL (0.70-1.30); GLOMERULAR FILTRATION RATE > 60.0 (>56); GLUCOSE, FASTING 102 MG/DL (60-100); POTASSIUM SERUM 3.9 MMOL/L (3.5-5.1); SODIUM LEVEL 140 MMOL/L (136-145); TOTAL PROTEIN 6.8 G/DL (5.7-8.2)
[2024-08-16] MEDS: CEFEPIME HCL 2 GM in DEXTROSE 5% (D5W) ADV/MINI-BAG 50 ML IV ONE (22:16)
[2024-08-16] MEDS: LR 1,000 ML IV SCH (23:18)
[2024-08-17] MEDS ORDERED: PROCHLORPERAZINE 5MG TAB PO PRN (00:05)
[2024-08-17] MEDS ORDERED: EMLA CREAM 5GM TUBE (LIDOCAINE/PRILOCAINE) TOP SCH (00:05)
[2024-08-17] MEDS ORDERED: ALPRAZolam 0.25 MG TAB PO PRN (00:05)
[2024-08-17] MEDS ORDERED: ONDANSETRON 4MG TAB PO PRN (00:05)
[2024-08-17] MEDS ORDERED: PILL CUTTER 1 EACH XX PRN (01:50)
[2024-08-17] MEDS: ACETAMINOPHEN 325 MG TAB PO PRN (04:14)
[2024-08-17] MEDS: CEFEPIME HCL 2 GM in DEXTROSE 5% (D5W) ADV/MINI-BAG 50 ML IV SCH (05:01)
[2024-08-17 07:48] LABS: HEMATOCRIT 40.7 % (42.0-52.0); HEMOGLOBIN 12.4 g/dl (13.5-17.5); MEAN CORPUSCULAR HEMOGLOBIN 23.8 pg (27.0-33.0); MEAN CORPUSCULAR HGB CONC 30.5 g/dl (32.0-36.5); MEAN CORPUSCULAR VOLUME 78.1 fl (80.0-96.0); PLATELET COUNT, AUTOMATED 259 10^3/uL (150-450); RED BLOOD COUNT 5.21 10^6/uL (4.30-6.10); WHITE BLOOD COUNT 7.7 10^3/uL (4.0-10.0)
[2024-08-17 08:15] LABS: ALBUMIN 2.9 G/DL (3.2-5.2); BLOOD UREA NITROGEN 15 MG/DL (9-23); CALCIUM LEVEL 8.9 MG/DL (8.5-10.1); CARBON DIOXIDE LEVEL 26 MMOL/L (20-31); CHLORIDE LEVEL 108 MMOL/L (98-107); CREATININE FOR GFR 0.96 MG/DL (0.70-1.30); GLOMERULAR FILTRATION RATE > 60.0 (>56); GLUCOSE, FASTING 96 MG/DL (60-100); PHOSPHORUS LEVEL 3.5 MG/DL (2.5-4.9); POTASSIUM SERUM 3.5 MMOL/L (3.5-5.1); SODIUM LEVEL 137 MMOL/L (136-145)
[2024-08-17] MEDS: ENOXAPARIN 40MG/0.4ML SYRINGE (J1650 PER 10MG) SC SCH (09:00)
[2024-08-17] MEDS: SERTRALINE HCL 50 MG TAB PO SCH (09:03)
[2024-08-17] MEDS: DOCUSATE SODIUM 100MG CAPSULE PO SCH (09:03)
[2024-08-17] MEDS: GABAPENTIN 400MG CAP PO SCH (09:04)
[2024-08-17 15:46] VITALS: BP 109/65; TEMP 99.4; O2SAT 95
[2024-08-17 16:00] VITALS: BP 101/67; TEMP 97.9; O2SAT 94
[2024-08-17 19:40] VITALS: BP 98/67; TEMP 97.9; O2SAT 94
[2024-08-17] MEDS: SENOKOT S TAB PO SCH (21:55)
[2024-08-18 00:10] VITALS: BP 104/66; TEMP 97.9; O2SAT 94
[2024-08-18 05:00] VITALS: BP 96/64; TEMP 98.1; O2SAT 91
[2024-08-18 05:53] LABS: HEMATOCRIT 39.2 % (42.0-52.0); HEMOGLOBIN 11.8 g/dl (13.5-17.5); MEAN CORPUSCULAR HEMOGLOBIN 23.6 pg (27.0-33.0); MEAN CORPUSCULAR HGB CONC 30.1 g/dl (32.0-36.5); MEAN CORPUSCULAR VOLUME 78.4 fl (80.0-96.0); PLATELET COUNT, AUTOMATED 226 10^3/uL (150-450); WHITE BLOOD COUNT 6.2 10^3/uL (4.0-10.0)
[2024-08-18 06:10] LABS: ALBUMIN 2.7 G/DL (3.2-5.2); BLOOD UREA NITROGEN 13 MG/DL (9-23); CALCIUM LEVEL 8.7 MG/DL (8.5-10.1); CARBON DIOXIDE LEVEL 26 MMOL/L (20-31); CHLORIDE LEVEL 106 MMOL/L (98-107); CREATININE FOR GFR 0.85 MG/DL (0.70-1.30); GLOMERULAR FILTRATION RATE > 60.0 (>56); GLUCOSE, FASTING 98 MG/DL (60-100); POTASSIUM SERUM 3.4 MMOL/L (3.5-5.1); SODIUM LEVEL 138 MMOL/L (136-145)
[2024-08-18 08:00] VITALS: BP 103/67; TEMP 97.9; O2SAT 96
[2024-08-18 12:00] VITALS: BP 102/69; TEMP 98.1; O2SAT 91
[2024-08-18 21:45] VITALS: BP 111/72; TEMP 98.1; O2SAT 96
[2024-08-18 23:58] VITALS: BP 106/69; TEMP 98.1; O2SAT 97
[2024-08-19] VITALS (10 sets, daily range): BP systolic 102–114; BP diastolic 68–76; TEMP 97.5–98.1; O2SAT 94–97
[2024-08-19 05:55] LABS: HEMATOCRIT 38.9 % (42.0-52.0); MEAN CORPUSCULAR HEMOGLOBIN 23.7 pg (27.0-33.0); MEAN CORPUSCULAR HGB CONC 30.8 g/dl (32.0-36.5); MEAN CORPUSCULAR VOLUME 76.9 fl (80.0-96.0); PLATELET COUNT, AUTOMATED 250 10^3/uL (150-450); RED BLOOD COUNT 5.06 10^6/uL (4.30-6.10); WHITE BLOOD COUNT 7.4 10^3/uL (4.0-10.0)
[2024-08-19 06:25] LABS: ALBUMIN 2.6 G/DL (3.2-5.2); BLOOD UREA NITROGEN 9 MG/DL (9-23); CALCIUM LEVEL 8.4 MG/DL (8.5-10.1); CARBON DIOXIDE LEVEL 25 MMOL/L (20-31); CHLORIDE LEVEL 108 MMOL/L (98-107); CREATININE FOR GFR 0.88 MG/DL (0.70-1.30); GLOMERULAR FILTRATION RATE > 60.0 (>56); GLUCOSE, FASTING 97 MG/DL (60-100); PHOSPHORUS LEVEL 2.9 MG/DL (2.5-4.9); POTASSIUM SERUM 3.2 MMOL/L (3.5-5.1); SODIUM LEVEL 140 MMOL/L (136-145)
[2024-08-19] MEDS: MORPHINE 30 MG TAB **MSIR PO ONE (11:44)
[2024-08-19] MEDS ORDERED: fentaNYL 100 MCG/2 ML INJECTION As Ordered ONE (16:09)
[2024-08-19] MEDS ORDERED: LIDOCAINE 1% MDV 20ML VIAL As Ordered ONE (16:09)
[2024-08-19] MEDS ORDERED: ISOVUE-300 61% 100ML VIAL As Ordered ONE (16:19)
[2024-08-20] VITALS (7 sets, daily range): BP systolic 101–118; BP diastolic 68–75; TEMP 97.7–98.1; O2SAT 93–96
[2024-08-20 06:57] LABS: HEMATOCRIT 38.3 % (42.0-52.0); HEMOGLOBIN 11.8 g/dl (13.5-17.5); MEAN CORPUSCULAR HEMOGLOBIN 23.9 pg (27.0-33.0); MEAN CORPUSCULAR HGB CONC 30.8 g/dl (32.0-36.5); MEAN CORPUSCULAR VOLUME 77.5 fl (80.0-96.0); PLATELET COUNT, AUTOMATED 239 10^3/uL (150-450); RED BLOOD COUNT 4.94 10^6/uL (4.30-6.10)
[2024-08-20 07:20] LABS: ALBUMIN 2.4 G/DL (3.2-5.2); BLOOD UREA NITROGEN 14 MG/DL (9-23); CALCIUM LEVEL 8.5 MG/DL (8.5-10.1); CARBON DIOXIDE LEVEL 29 MMOL/L (20-31); CHLORIDE LEVEL 106 MMOL/L (98-107); CREATININE FOR GFR 0.98 MG/DL (0.70-1.30); GLOMERULAR FILTRATION RATE > 60.0 (>56); GLUCOSE, FASTING 112 MG/DL (60-100); PHOSPHORUS LEVEL 2.9 MG/DL (2.5-4.9); POTASSIUM SERUM 3.6 MMOL/L (3.5-5.1); SODIUM LEVEL 141 MMOL/L (136-145)
[2024-08-21] VITALS (7 sets, daily range): BP systolic 100–112; BP diastolic 64–70; TEMP 97.5–97.9; O2SAT 93–95
[2024-08-21 06:03] LABS: HEMATOCRIT 38.2 % (42.0-52.0); HEMOGLOBIN 11.7 g/dl (13.5-17.5); MEAN CORPUSCULAR HEMOGLOBIN 23.9 pg (27.0-33.0); MEAN CORPUSCULAR HGB CONC 30.6 g/dl (32.0-36.5); PLATELET COUNT, AUTOMATED 219 10^3/uL (150-450); WHITE BLOOD COUNT 7.4 10^3/uL (4.0-10.0)
[2024-08-21 06:35] LABS: ALBUMIN 2.4 G/DL (3.2-5.2); BLOOD UREA NITROGEN 14 MG/DL (9-23); CALCIUM LEVEL 8.4 MG/DL (8.5-10.1); CARBON DIOXIDE LEVEL 28 MMOL/L (20-31); CHLORIDE LEVEL 108 MMOL/L (98-107); CREATININE FOR GFR 0.91 MG/DL (0.70-1.30); GLOMERULAR FILTRATION RATE > 60.0 (>56); GLUCOSE, FASTING 108 MG/DL (60-100); POTASSIUM SERUM 3.2 MMOL/L (3.5-5.1); SODIUM LEVEL 141 MMOL/L (136-145)
[2024-08-21] MEDS: MORPHINE 30 MG TAB **MSIR PO PRN (10:11)
[2024-08-22] VITALS: BP 107/70; TEMP 97.7; O2SAT 98
[2024-08-22 04:00] VITALS: BP 104/68; TEMP 97.5; O2SAT 96
[2024-08-22 05:50] LABS: HEMATOCRIT 37.9 % (42.0-52.0); HEMOGLOBIN 11.5 g/dl (13.5-17.5); MEAN CORPUSCULAR HEMOGLOBIN 24.2 pg (27.0-33.0); MEAN CORPUSCULAR HGB CONC 30.3 g/dl (32.0-36.5); MEAN CORPUSCULAR VOLUME 79.6 fl (80.0-96.0); PLATELET COUNT, AUTOMATED 251 10^3/uL (150-450); RED BLOOD COUNT 4.76 10^6/uL (4.30-6.10)
[2024-08-22 06:19] LABS: ALBUMIN 2.4 G/DL (3.2-5.2); BLOOD UREA NITROGEN 18 MG/DL (9-23); CALCIUM LEVEL 8.7 MG/DL (8.5-10.1); CARBON DIOXIDE LEVEL 29 MMOL/L (20-31); CHLORIDE LEVEL 108 MMOL/L (98-107); CREATININE FOR GFR 0.96 MG/DL (0.70-1.30); GLOMERULAR FILTRATION RATE > 60.0 (>56); GLUCOSE, FASTING 90 MG/DL (60-100); PHOSPHORUS LEVEL 3.4 MG/DL (2.5-4.9); POTASSIUM SERUM 3.5 MMOL/L (3.5-5.1); SODIUM LEVEL 142 MMOL/L (136-145)
[2024-08-22 08:00] VITALS: BP 113/76; TEMP 97.5; O2SAT 96
[2024-08-22 12:00] VITALS: BP 110/73; TEMP 97.5; O2SAT 94
[2024-08-22 16:00] VITALS: BP 108/72; TEMP 97.3; O2SAT 95
[2024-08-22 20:00] VITALS: BP 109/82; TEMP 97.5; O2SAT 93
[2024-08-23] VITALS (7 sets, daily range): BP systolic 80–110; BP diastolic 60–80; TEMP 97.5–98.1; O2SAT 90–96
[2024-08-23 06:24] LABS: HEMATOCRIT 38.6 % (42.0-52.0); HEMOGLOBIN 11.7 g/dl (13.5-17.5); MEAN CORPUSCULAR HGB CONC 30.3 g/dl (32.0-36.5); MEAN CORPUSCULAR VOLUME 79.1 fl (80.0-96.0); PLATELET COUNT, AUTOMATED 249 10^3/uL (150-450); RED BLOOD COUNT 4.88 10^6/uL (4.30-6.10); WHITE BLOOD COUNT 8.1 10^3/uL (4.0-10.0)
[2024-08-23 06:47] LABS: ALBUMIN 2.4 G/DL (3.2-5.2); BLOOD UREA NITROGEN 17 MG/DL (9-23); CALCIUM LEVEL 8.7 MG/DL (8.5-10.1); CARBON DIOXIDE LEVEL 29 MMOL/L (20-31); CHLORIDE LEVEL 112 MMOL/L (98-107); CREATININE FOR GFR 0.94 MG/DL (0.70-1.30); GLOMERULAR FILTRATION RATE > 60.0 (>56); GLUCOSE, FASTING 89 MG/DL (60-100); PHOSPHORUS LEVEL 3.2 MG/DL (2.5-4.9); POTASSIUM SERUM 3.9 MMOL/L (3.5-5.1); SODIUM LEVEL 144 MMOL/L (136-145)
[2024-08-23] MEDS ORDERED: METH-855 PO (07:13)
[2024-08-23] MEDS: NS 1,000 ML IV ONE (08:36)
[2024-08-23] MEDS: MIDODRINE 5 MG TAB PO ONE (08:37)
[2024-08-23 08:54] LABS: PROCALCITONIN 0.21 ng/ml
[2024-08-24] VITALS: BP 111/71; TEMP 97.9; O2SAT 94
[2024-08-24 04:00] VITALS: BP 105/69; TEMP 97.9; O2SAT 89
[2024-08-24 08:00] VITALS: BP 102/69; TEMP 97.5; O2SAT 94
[2024-08-24 12:04] VITALS: BP 102/69; TEMP 97.7; O2SAT 96
== END 2024-08-24 14:52 | disposition home health service (06) | DRG 698 ==
LOC: EDBD 16:53 → M ED 16:53 → M ED INP 08-17 → M MSPAV 08-17 15:55
PROVIDERS: ADMIT Student in an Organized Health Care Education/Training Program; ATTEND General Practice
PROC: 0T25X0Z Change Drainage Device in Kidney, External Approach (ICD-10-PCS; principal; 2024-08-19 16:00)
DX: T83.511A Infection and inflammatory reaction due to indwelling urethral catheter, initial encounter (principal); G80.0 Spastic quadriplegic cerebral palsy; A41.9 Sepsis, unspecified organism; C77.5 Secondary and unspecified malignant neoplasm of intrapelvic lymph nodes; C67.5 Malignant neoplasm of bladder neck; Y84.6 Urinary catheterization as the cause of abnormal reaction of the patient, or of later complication, without mention of misadventure at the time of the procedure; N39.0 Urinary tract infection, site not specified; J45.909 Unspecified asthma, uncomplicated; M19.93 Secondary osteoarthritis, unspecified site; I10 Essential (primary) hypertension; B96.5 Pseudomonas (aeruginosa) (mallei) (pseudomallei) as the cause of diseases classified elsewhere; E78.5 Hyperlipidemia, unspecified; F41.9 Anxiety disorder, unspecified; F32.A Depression, unspecified; F17.220 Nicotine dependence, chewing tobacco, uncomplicated; Z66 Do not resuscitate; Z96.0 Presence of urogenital implants; Z79.69 Long term (current) use of other immunomodulators and immunosuppressants; Z99.3 Dependence on wheelchair; Z79.899 Other long term (current) drug therapy; Z88.0 Allergy status to penicillin; Z88.5 Allergy status to narcotic agent; Z92.3 Personal history of irradiation

== ENCOUNTER → 2024-08-31 | Outpatient (CLI) | payer MEDICARE, MEDICAID ==
[~2024-08-31] VITALS: Ht 160 cm; Wt 75.0 kg
[~2024-08-31] MED LIST changes: +METH-855 PO; +SENN1TAB85 PO
[2024-08-31 10:36] VITALS: BP 100/74; O2SAT 96
== END ==
LOC: M PAL 09:49
PROVIDERS: ATTEND Nurse Practitioner Adult Health
DX: G89.29 Other chronic pain (principal); C67.9 Malignant neoplasm of bladder, unspecified; M25.559 Pain in unspecified hip; M54.9 Dorsalgia, unspecified; G80.9 Cerebral palsy, unspecified; N39.0 Urinary tract infection, site not specified; K59.00 Constipation, unspecified; F17.220 Nicotine dependence, chewing tobacco, uncomplicated; Z66 Do not resuscitate; Z79.620 Long term (current) use of immunosuppressive biologic; Z79.891 Long term (current) use of opiate analgesic; Z79.899 Other long term (current) drug therapy; Z86.19 Personal history of other infectious and parasitic diseases; Z88.0 Allergy status to penicillin; Z51.5 Encounter for palliative care; Z88.1 Allergy status to other antibiotic agents; Z88.5 Allergy status to narcotic agent; Z92.3 Personal history of irradiation; Z92.21 Personal history of antineoplastic chemotherapy; Z99.3 Dependence on wheelchair

== ENCOUNTER → 2024-10-18 | Outpatient (CLI) | payer MEDICAID, MEDICARE, OTHER ==
[~2024-10-18] MED LIST changes: +ISOVUE-370 76% 100ML VIAL As Ordered ONE
== END ==
LOC: M RAD 10:17
PROVIDERS: ATTEND Internal Medicine Medical Oncology
DX: C67.9 Malignant neoplasm of bladder, unspecified (principal); K40.90 Unilateral inguinal hernia, without obstruction or gangrene, not specified as recurrent
CPT/HCPCS: 74177; Q9967

== ENCOUNTER → 2024-11-02 | Outpatient (CLI) | payer MEDICARE, MEDICAID ==
[~2024-11-02] MED LIST changes: -ISOVUE-370 76% 100ML VIAL As Ordered ONE; +POTA-141 PO
== END ==
LOC: M PAL 15:33
PROVIDERS: ATTEND Family Medicine
DX: Z51.5 Encounter for palliative care (principal); R52 Pain, unspecified; C67.9 Malignant neoplasm of bladder, unspecified; G80.9 Cerebral palsy, unspecified; Z92.21 Personal history of antineoplastic chemotherapy; Z92.3 Personal history of irradiation; Z79.899 Other long term (current) drug therapy; Z88.0 Allergy status to penicillin; Z88.1 Allergy status to other antibiotic agents; Z88.5 Allergy status to narcotic agent; Z99.3 Dependence on wheelchair

== ENCOUNTER → 2024-11-07 | Outpatient (CLI) | payer MEDICARE, OTHER ==
[~2024-11-07] VITALS: Ht 162.6 cm; Wt 72.7 kg
[~2024-11-07] MED LIST changes: +ISOVUE-300 61% 100ML VIAL As Ordered ONE; +LIDOCAINE 1% MDV 20ML VIAL As Ordered ONE; +MIDAZOLAM INJ 2MG/2ML VIAL As Ordered ONE; +NS (Normal Saline) 0.9% 1,000 ML IV SCH; +fentaNYL 100 MCG/2 ML INJECTION As Ordered ONE
[2024-11-07 08:50] VITALS: TEMP 98.4
[2024-11-07] MEDS: CIPROFLOXACIN 400 MG in IV 1 EA IV ONE (10:33)
[2024-11-07 11:47] VITALS: BP 108/82; O2SAT 95
== END ==
LOC: M IRPRO 08:32
PROVIDERS: ATTEND Radiology Diagnostic Radiology
DX: N13.9 Obstructive and reflux uropathy, unspecified (principal)
CPT/HCPCS: 50435; 99152; C1729; J0744; J2250; J3010; Q9967

== ENCOUNTER → 2025-01-03 | Outpatient (CLI) | payer MEDICARE, MEDICAID ==
[~2025-01-03] MED LIST changes: +CEFD1CAP9 PO; +FEOS200T2 PO; +FERR325T19 PO; +POTA-298 PO; +VITA500C3 PO
[2025-01-03 10:45] VITALS: TEMP 100.2
[2025-01-03] MEDS: CIPROFLOXACIN 400 MG in IV 1 EA IV ONE (11:29)
[2025-01-03] MEDS: fentaNYL 100 MCG/2 ML INJECTION IV STA (12:14)
[2025-01-03] MEDS: MIDAZOLAM INJ 2MG/2ML VIAL IV STA (12:14)
[2025-01-03] MEDS: LIDOCAINE 1% MDV 20ML VIAL IM ONE (12:23)
[2025-01-03] MEDS: ISOVUE-300 61% 100ML VIAL XX ONE (12:24)
[2025-01-03 12:55] VITALS: BP 130/82; O2SAT 90
== END ==
LOC: M IRPRO 10:12
PROVIDERS: ATTEND Radiology Diagnostic Radiology
DX: N13.9 Obstructive and reflux uropathy, unspecified (principal)
CPT/HCPCS: 50435; 87075; 87088; 87186; 87205; 99152; C1729; J0744; J2250; J3010; Q9967

== ENCOUNTER 2025-01-09 11:22 | Inpatient (IN) | payer MEDICARE, OTHER ==
[~2025-01-09] VITALS: Ht 160 cm; Wt 69.5 kg
[~2025-01-09 11:22] MED LIST changes: -CEFD1CAP9 PO; -ISOVUE-300 61% 100ML VIAL As Ordered ONE; -LIDOCAINE 1% MDV 20ML VIAL As Ordered ONE; -MIDAZOLAM INJ 2MG/2ML VIAL As Ordered ONE; -NS (Normal Saline) 0.9% 1,000 ML IV SCH; -POTA-298 PO; -VITA500C3 PO; -fentaNYL 100 MCG/2 ML INJECTION As Ordered ONE
[2025-01-09 12:02] LABS: BASO % 0.4 % (0.0-1.0); EOS # 0.1 10^3/uL (0.0-0.5); EOS % 1.2 % (0.0-3.0); HEMATOCRIT 46.2 % (42.0-52.0); HEMOGLOBIN 13.8 g/dl (13.5-17.5); LYMPH % 9.7 % (24.0-44.0); MEAN CORPUSCULAR HEMOGLOBIN 23.8 pg (27.0-33.0); MEAN CORPUSCULAR HGB CONC 29.9 g/dl (32.0-36.5); MEAN CORPUSCULAR VOLUME 79.7 fl (80.0-96.0); MONO # 0.9 10^3/uL (0.0-0.8); MONO % 8.8 % (2.0-8.0); NEUTROPHILS # 7.8 10^3/uL (1.5-8.5); NEUTROPHILS % 78.9 % (36.0-66.0); PLATELET COUNT, AUTOMATED 330 10^3/uL (150-450); WHITE BLOOD COUNT 9.9 10^3/uL (4.0-10.0)
[2025-01-09 12:14] LABS: INR 0.96; PARTIAL THROMBOPLASTIN TIME 29.1 SECONDS (24.8-34.2); PROTHROMBIN TIME 13.1 SECONDS (12.5-14.5)
[2025-01-09 12:33] LABS: AMYLASE 104 U/L (30-118); C REACTIVE PROTEIN QUANTITATIV 2.26 MG/DL (<1.0)
[2025-01-09 12:34] LABS: ALBUMIN 2.7 G/DL (3.2-5.2); ALKALINE PHOSPHATASE 76 U/L (40-129); ALT/SGPT 51 U/L (7.0-40); AST/SGOT 55 U/L (<34); BILIRUBIN,DIRECT 0.1 MG/DL (<0.4); BILIRUBIN,TOTAL 0.3 MG/DL (0.3-1.2); BLOOD UREA NITROGEN 28 MG/DL (9-23); CALCIUM LEVEL 8.4 MG/DL (8.5-10.1); CARBON DIOXIDE LEVEL 24 MMOL/L (20-31); CHLORIDE LEVEL 110 MMOL/L (98-107); CREATININE FOR GFR 0.91 MG/DL (0.70-1.30); GLOMERULAR FILTRATION RATE > 60.0 (>56); GLUCOSE, FASTING 88 MG/DL (60-100); POTASSIUM SERUM 4.2 MMOL/L (3.5-5.1); SODIUM LEVEL 144 MMOL/L (136-145); TOTAL PROTEIN 6.1 G/DL (5.7-8.2)
[2025-01-09 12:45] LABS: PROCALCITONIN 0.16 ng/ml
[2025-01-09] MEDS ORDERED: SODIUM CHLORIDE 0.9% INJ 10 ML SYR IV PRN (13:30)
[2025-01-09] MEDS ORDERED: MEROPENEM INJ 2 GM in NS 100 ML IV ONE (14:00)
[2025-01-09] MEDS: NS (Normal Saline) 0.9% 1,000 ML IV ONE (14:12)
[2025-01-09] MEDS: EMLA CREAM 5GM TUBE (LIDOCAINE/PRILOCAINE) TOP ONE (14:13)
[2025-01-09 14:49] LABS: AMORPHOUS SEDIMENT SMALL (NEGATIVE); APPEARANCE, URINE CLOUDY (CLEAR); BACTERIA, URINE AUTO 1+ (NEGATIVE); BILIRUBIN, URINE AUTO NEGATIVE (NEGATIVE); BLOOD, URINE BLOOD 1+ (NEGATIVE); CALCIUM OXALATE CRYSTALS SMALL; COLOR, URINE YELLOW (YELLOW); GLUCOSE, URINE (UA) AUTO NEGATIVE (NEGATIVE); KETONE, URINE AUTO NEGATIVE (NEGATIVE); LEUKOCYTE ESTERASE, URINE AUTO 3+ (NEGATIVE); MUCUS, URINE SMALL (NEGATIVE); NITRITE, URINE AUTO POSITIVE (NEGATIVE); PROTEIN, URINE AUTO 2+ mg/dL (NEGATIVE); RBC, URINE AUTO 18 /HPF (0-3); SPECIFIC GRAVITY URINE AUTO 1.015 (1.002-1.035); SQUAMOUS EPITHELIAL CELL UR AU 0 /HPF (0-6); UROBILINOGEN, URINE AUTO 0.2 mg/dL (0.0-2.0); WBC, URINE AUTO 143 /HPF (0-3)
[2025-01-09] MEDS ORDERED: METH-855 PO (15:23)
[2025-01-09] MEDS ORDERED: POTA-298 PO (15:23)
[2025-01-09] MEDS ORDERED: VITA500C3 PO (15:24)
[2025-01-09] MEDS ORDERED: HOME MED LIST COMPLETE! XX SCH (15:25)
[2025-01-09] MEDS: LevoFLOXacin IV 750 MG in IV 1 EA IV ONE (15:46)
[2025-01-09] MEDS: MEROPENEM INJ 1 GM in IV 1 EA IV SCH (16:30)
[2025-01-09] MEDS ORDERED: LevoFLOXacin IV 750 MG in IV 1 EA IV SCH (16:50)
[2025-01-09] MEDS ORDERED: ALPRAZolam 0.25 MG TAB PO PRN (16:50)
[2025-01-09] MEDS: GABAPENTIN 400MG CAP PO SCH (21:06)
[2025-01-09] MEDS: SENOKOT S TAB PO SCH (21:06)
[2025-01-10] MEDS: MEROPENEM INJ 1 GM in IV 1 EA IV SCH (01:01)
[2025-01-10 06:12] LABS: BASO % 0.3 % (0.0-1.0); EOS # 0.2 10^3/uL (0.0-0.5); EOS % 1.7 % (0.0-3.0); HEMATOCRIT 41.3 % (42.0-52.0); HEMOGLOBIN 12.5 g/dl (13.5-17.5); LYMPH # 1.1 10^3/uL (1.5-5.0); LYMPH % 11.1 % (24.0-44.0); MEAN CORPUSCULAR HGB CONC 30.3 g/dl (32.0-36.5); MEAN CORPUSCULAR VOLUME 79.4 fl (80.0-96.0); MONO # 0.7 10^3/uL (0.0-0.8); MONO % 7.6 % (2.0-8.0); NEUTROPHILS # 7.6 10^3/uL (1.5-8.5); NEUTROPHILS % 77.8 % (36.0-66.0); PLATELET COUNT, AUTOMATED 292 10^3/uL (150-450); WHITE BLOOD COUNT 9.8 10^3/uL (4.0-10.0)
[2025-01-10 06:42] LABS: BLOOD UREA NITROGEN 19 MG/DL (9-23); CARBON DIOXIDE LEVEL 26 MMOL/L (20-31); CHLORIDE LEVEL 108 MMOL/L (98-107); CREATININE FOR GFR 0.89 MG/DL (0.70-1.30); GLOMERULAR FILTRATION RATE > 60.0 (>56); GLUCOSE, FASTING 84 MG/DL (60-100); POTASSIUM SERUM 3.7 MMOL/L (3.5-5.1); SODIUM LEVEL 143 MMOL/L (136-145)
[2025-01-10] MEDS: POTASSIUM CHLORIDE 10MEQ SR TABLET PO SCH (08:58)
[2025-01-10] MEDS: FERROUS SULFATE 325MG TAB PO SCH (08:58)
[2025-01-10] MEDS: SERTRALINE HCL 50 MG TAB PO SCH (08:58)
[2025-01-10] MEDS: SODIUM CHLORIDE 0.9% INJ 10 ML SYR IV SCH (08:59)
[2025-01-10] MEDS ORDERED: DOCUSATE SODIUM 100MG CAPSULE PO PRN (09:40)
[2025-01-10] MEDS ORDERED: ONDANSETRON 4MG TAB PO PRN (09:40)
[2025-01-10] MEDS ORDERED: FLUTICASONE PROP 0.05% NASAL SPRAY 16 GM (FLONASE) NARES PRN (09:40)
[2025-01-10] MEDS ORDERED: PROCHLORPERAZINE 5MG TAB PO PRN (09:40)
[2025-01-10] MEDS ORDERED: EMLA CREAM 5GM TUBE (LIDOCAINE/PRILOCAINE) TOP PRN (09:40)
[2025-01-10] MEDS ORDERED: NALOXONE INJ 0.4MG/1ML VIAL IV PRN (09:45)
[2025-01-10] MEDS: MORPHINE SULFATE TAB IMM. REL. 15 MG PO ONE (10:37)
[2025-01-10] MEDS: KETOROLAC 30 MG/ML 1ML VIAL IV ONE (10:38)
[2025-01-10] MEDS: MIDODRINE 5 MG TAB PO ONE (10:58)
[2025-01-10] MEDS: LR 1,000 ML IV ONE (10:58)
[2025-01-10] MEDS: ACETAMINOPHEN 500 MG TAB PO SCH (12:00)
[2025-01-10] MEDS: LR 1,000 ML IV SCH (12:47)
[2025-01-10 13:03] VITALS: BP 105/72; TEMP 97.5; O2SAT 92
[2025-01-10] MEDS: METHENAMINE HIPPURATE 1GM TABLET PO SCH (21:28)
[2025-01-10 21:30] VITALS: BP 92/62; TEMP 97.9; O2SAT 98
[2025-01-10] MEDS: KETOCONAZOLE 2% CREAM TOP SCH (22:18)
[2025-01-11] VITALS (7 sets, daily range): BP systolic 94–121; BP diastolic 62–76; TEMP 97.3–97.7; O2SAT 94–100
[2025-01-11 05:42] LABS: BASO % 0.3 % (0.0-1.0); EOS # 0.2 10^3/uL (0.0-0.5); EOS % 2.5 % (0.0-3.0); HEMATOCRIT 39.4 % (42.0-52.0); LYMPH % 11.2 % (24.0-44.0); MEAN CORPUSCULAR HEMOGLOBIN 24.4 pg (27.0-33.0); MEAN CORPUSCULAR HGB CONC 30.5 g/dl (32.0-36.5); MEAN CORPUSCULAR VOLUME 80.2 fl (80.0-96.0); MONO # 0.8 10^3/uL (0.0-0.8); MONO % 8.5 % (2.0-8.0); NEUTROPHILS # 7.1 10^3/uL (1.5-8.5); NEUTROPHILS % 76.4 % (36.0-66.0); PLATELET COUNT, AUTOMATED 264 10^3/uL (150-450); RED BLOOD COUNT 4.91 10^6/uL (4.30-6.10); WHITE BLOOD COUNT 9.2 10^3/uL (4.0-10.0)
[2025-01-11 06:06] LABS: BLOOD UREA NITROGEN 13 MG/DL (9-23); CALCIUM LEVEL 7.8 MG/DL (8.5-10.1); CARBON DIOXIDE LEVEL 24 MMOL/L (20-31); CHLORIDE LEVEL 109 MMOL/L (98-107); CREATININE FOR GFR 0.76 MG/DL (0.70-1.30); GLOMERULAR FILTRATION RATE > 60.0 (>56); GLUCOSE, FASTING 104 MG/DL (60-100); POTASSIUM SERUM 3.8 MMOL/L (3.5-5.1); SODIUM LEVEL 145 MMOL/L (136-145)
[2025-01-11] MEDS: MIDODRINE 5 MG TAB PO ONE (08:27)
[2025-01-11] MEDS: LR 1,000 ML IV ONE (09:09)
[2025-01-11] MEDS: MIDODRINE 5 MG TAB PO SCH (11:43)
[2025-01-11] MEDS ORDERED: PILL CUTTER 1 EACH XX ONE (20:14)
[2025-01-11] MEDS: MORPHINE SULFATE TAB IMM. REL. 15 MG PO PRN (20:18)
[2025-01-12 03:52] VITALS: BP 99/66; TEMP 97.5; O2SAT 96
[2025-01-12 06:24] LABS: BASO % 0.4 % (0.0-1.0); EOS # 0.2 10^3/uL (0.0-0.5); EOS % 2.5 % (0.0-3.0); HEMATOCRIT 42.3 % (42.0-52.0); HEMOGLOBIN 12.9 g/dl (13.5-17.5); LYMPH # 1.4 10^3/uL (1.5-5.0); MEAN CORPUSCULAR HEMOGLOBIN 24.5 pg (27.0-33.0); MEAN CORPUSCULAR HGB CONC 30.5 g/dl (32.0-36.5); MEAN CORPUSCULAR VOLUME 80.3 fl (80.0-96.0); MONO # 0.8 10^3/uL (0.0-0.8); MONO % 10.4 % (2.0-8.0); NEUTROPHILS % 65.3 % (36.0-66.0); PLATELET COUNT, AUTOMATED 327 10^3/uL (150-450); RED BLOOD COUNT 5.27 10^6/uL (4.30-6.10); WHITE BLOOD COUNT 7.6 10^3/uL (4.0-10.0)
[2025-01-12 06:42] LABS: BLOOD UREA NITROGEN 9 MG/DL (9-23); CALCIUM LEVEL 8.5 MG/DL (8.5-10.1); CARBON DIOXIDE LEVEL 31 MMOL/L (20-31); CHLORIDE LEVEL 103 MMOL/L (98-107); GLOMERULAR FILTRATION RATE > 60.0 (>56); GLUCOSE, FASTING 78 MG/DL (60-100); SODIUM LEVEL 144 MMOL/L (136-145)
[2025-01-12 08:00] VITALS: BP 99/66; TEMP 97.5; O2SAT 96
[2025-01-12 09:21] LABS: THYROID STIMULATING HORMONE 3.091 uIU/ML (0.55-4.78)
[2025-01-12 09:22] LABS: CORTISOL AM 3.7 UG/DL (4.3-22.4)
[2025-01-12] MEDS: LR 1,000 ML IV ONE (09:39)
[2025-01-12 12:00] VITALS: BP 97/65; TEMP 97.5; O2SAT 92
[2025-01-12] MEDS ORDERED: CEFD1CAP9 PO (12:45)
[2025-01-12] MEDS ORDERED: dexAMETHasone 20MG/5ML VIAL IV SCH (12:55)
[2025-01-12] MEDS: FLUDROCORTISONE ACETATE 0.1 MG TAB PO ONE (13:37)
[2025-01-12] MEDS: MORPHINE SULFATE TAB IMM. REL. 15 MG PO PRN (13:47)
[2025-01-12 16:00] VITALS: BP 104/72; TEMP 97.9; O2SAT 98
[2025-01-12] MEDS ORDERED: cefTRIAXone SOD 1 GM in DEXTROSE 5% (D5W) ADV/MINI-BAG 50 ML IV SCH (17:00)
[2025-01-12 20:20] VITALS: BP 104/71; TEMP 97.5; O2SAT 92
[2025-01-12] MEDS: CEFDINIR 300 MG CAP (OMNICEF) PO SCH (20:32)
[2025-01-12 23:51] VITALS: BP 94/52; TEMP 97.7; O2SAT 94
[2025-01-13 03:39] VITALS: BP 99/63; TEMP 97.5; O2SAT 98
[2025-01-13] MEDS: COSYNTROPIN 0.25 MG/ML 1ML VIAL IV ONE (05:43)
[2025-01-13 06:24] LABS: BASO % 0.4 % (0.0-1.0); EOS # 0.2 10^3/uL (0.0-0.5); EOS % 2.8 % (0.0-3.0); HEMATOCRIT 43.6 % (42.0-52.0); HEMOGLOBIN 13.1 g/dl (13.5-17.5); LYMPH # 1.3 10^3/uL (1.5-5.0); LYMPH % 16.9 % (24.0-44.0); MEAN CORPUSCULAR HEMOGLOBIN 24.3 pg (27.0-33.0); MEAN CORPUSCULAR VOLUME 80.7 fl (80.0-96.0); MONO # 1.1 10^3/uL (0.0-0.8); MONO % 13.4 % (2.0-8.0); NEUTROPHILS # 5.2 10^3/uL (1.5-8.5); NEUTROPHILS % 64.9 % (36.0-66.0); PLATELET COUNT, AUTOMATED 308 10^3/uL (150-450); WHITE BLOOD COUNT 7.9 10^3/uL (4.0-10.0)
[2025-01-13 06:46] LABS: BLOOD UREA NITROGEN 10 MG/DL (9-23); CALCIUM LEVEL 8.3 MG/DL (8.5-10.1); CARBON DIOXIDE LEVEL 32 MMOL/L (20-31); CHLORIDE LEVEL 104 MMOL/L (98-107); CREATININE FOR GFR 0.79 MG/DL (0.70-1.30); GLOMERULAR FILTRATION RATE > 60.0 (>56); GLUCOSE, FASTING 85 MG/DL (60-100); POTASSIUM SERUM 3.9 MMOL/L (3.5-5.1); SODIUM LEVEL 145 MMOL/L (136-145)
[2025-01-13 08:03] VITALS: BP 95/62; TEMP 97.7; O2SAT 96
[2025-01-13] MEDS ORDERED: CORT20TA PO (08:31)
[2025-01-13] MEDS ORDERED: FLUD0.1T PO (08:31)
[2025-01-13] MEDS ORDERED: MIDO5TA PO (08:31)
[2025-01-13] MEDS ORDERED: TALK1KIT MC (08:32)
[2025-01-13] MEDS: HYDROCORTISONE 10 MG TAB PO SCH (09:25)
[2025-01-13 11:40] VITALS: BP 95/63; TEMP 97.7; O2SAT 96
[2025-01-13 11:47] VITALS: O2SAT 96
== END 2025-01-13 14:38 | disposition home health service (06) | DRG 698 ==
LOC: EDBD 11:22 → M ED 11:22 → EEVIPCON 14:36 → M ED INP 14:36 → M MSPAV 01-10 13:02
PROVIDERS: ADMIT Internal Medicine Nephrology; ATTEND General Practice
DX: T83.511A Infection and inflammatory reaction due to indwelling urethral catheter, initial encounter (principal); G80.0 Spastic quadriplegic cerebral palsy; C77.2 Secondary and unspecified malignant neoplasm of intra-abdominal lymph nodes; E27.40 Unspecified adrenocortical insufficiency; C67.5 Malignant neoplasm of bladder neck; N39.0 Urinary tract infection, site not specified; I95.89 Other hypotension; J45.909 Unspecified asthma, uncomplicated; E78.5 Hyperlipidemia, unspecified; D86.9 Sarcoidosis, unspecified; N13.9 Obstructive and reflux uropathy, unspecified; E61.1 Iron deficiency; F17.220 Nicotine dependence, chewing tobacco, uncomplicated; B96.5 Pseudomonas (aeruginosa) (mallei) (pseudomallei) as the cause of diseases classified elsewhere; B96.4 Proteus (mirabilis) (morganii) as the cause of diseases classified elsewhere; B95.2 Enterococcus as the cause of diseases classified elsewhere; Z66 Do not resuscitate; M19.93 Secondary osteoarthritis, unspecified site; M54.50 Low back pain, unspecified; G89.29 Other chronic pain; Z79.69 Long term (current) use of other immunomodulators and immunosuppressants; Y84.6 Urinary catheterization as the cause of abnormal reaction of the patient, or of later complication, without mention of misadventure at the time of the procedure; Z99.3 Dependence on wheelchair; Z96.0 Presence of urogenital implants

== ENCOUNTER → 2025-01-31 | Outpatient (CLI) | payer MEDICARE, MEDICAID ==
[~2025-01-31] MED LIST changes: +CEFD1CAP9 PO; +CORT20TA PO; +FLUD0.1T PO; +MIDO5TA PO; +POTA-298 PO; +TALK1KIT MC; +VITA500C3 PO
== END ==
LOC: M PAL 14:17
PROVIDERS: ATTEND Physician Assistant
DX: Z51.5 Encounter for palliative care (principal); Z66 Do not resuscitate; C67.9 Malignant neoplasm of bladder, unspecified; Z92.21 Personal history of antineoplastic chemotherapy; Z92.3 Personal history of irradiation; G80.8 Other cerebral palsy; Z99.3 Dependence on wheelchair; Z79.891 Long term (current) use of opiate analgesic; Z88.5 Allergy status to narcotic agent; Z88.0 Allergy status to penicillin; Z88.1 Allergy status to other antibiotic agents; Z79.899 Other long term (current) drug therapy

== ENCOUNTER → 2025-02-02 | Outpatient (CLI) | payer MEDICAID, MEDICARE | LOC: M ONCR 10:24 | PROVIDERS: ATTEND General Practice | DX: C67.8 Malignant neoplasm of overlapping sites of bladder (principal); F17.220 Nicotine dependence, chewing tobacco, uncomplicated; Z79.620 Long term (current) use of immunosuppressive biologic; Z79.51 Long term (current) use of inhaled steroids; Z79.899 Other long term (current) drug therapy; Z87.440 Personal history of urinary (tract) infections; Z92.3 Personal history of irradiation; Z96.0 Presence of urogenital implants; Z88.0 Allergy status to penicillin; Z88.5 Allergy status to narcotic agent ==

== ENCOUNTER → 2025-02-08 | Outpatient (CLI) | payer MEDICARE, OTHER ==
[~2025-02-08] MED LIST changes: +ISOVUE-370 76% 100ML VIAL As Ordered ONE
== END ==
LOC: M RAD 08:18
PROVIDERS: ATTEND Internal Medicine Medical Oncology
DX: C67.9 Malignant neoplasm of bladder, unspecified (principal); Z93.6 Other artificial openings of urinary tract status; K40.90 Unilateral inguinal hernia, without obstruction or gangrene, not specified as recurrent; R93.3 Abnormal findings on diagnostic imaging of other parts of digestive tract; N40.0 Benign prostatic hyperplasia without lower urinary tract symptoms; J98.11 Atelectasis; K80.20 Calculus of gallbladder without cholecystitis without obstruction; K76.0 Fatty (change of) liver, not elsewhere classified; I72.8 Aneurysm of other specified arteries
CPT/HCPCS: 71260; 74177; Q9967

== ENCOUNTER → 2025-02-20 | Outpatient (CLI) | payer MEDICARE, MEDICAID ==
[~2025-02-20] MED LIST changes: +ACET-683 PO; +ASCO500T PO; -FLOM0.4C39 PO; -ISOVUE-370 76% 100ML VIAL As Ordered ONE; +MIDO10TA3 PO; +TAMS-18 PO
== END ==
LOC: M IRPRO 07:30
PROVIDERS: ATTEND Urology
DX: N13.9 Obstructive and reflux uropathy, unspecified (principal)

== ENCOUNTER 2025-04-20 10:20 | Day surgery (SDC) | payer MEDICARE, MEDICAID ==
[~2025-04-20] VITALS: Ht 162.6 cm; Wt 79.8 kg
[~2025-04-20 10:20] MED LIST changes: +ASCO500C3 PO; +CALC1CAP34 PO; +ECOT81TA5 PO; +KETO2CR; +LIDO30CR18; +MORP1SOL4 PO; +POTA-136 PO
[2025-04-20] MEDS ORDERED: LR 1,000 ML IV SCH ×2 (10:25→12:55)
[2025-04-20] MEDS ORDERED: MIDAZOLAM INJ 2 MG/2 ML VIAL As Ordered ONE (10:40)
[2025-04-20] MEDS ORDERED: fentaNYL 100 MCG/2 ML INJECTION As Ordered ONE (10:41)
[2025-04-20] MEDS ORDERED: LIDOCAINE 2% 100 MG/5 ML SDV (FOR ANES.) As Ordered ONE (10:43)
[2025-04-20] MEDS ORDERED: propofoL 200 MG/20 ML VIAL As Ordered ONE (10:44)
[2025-04-20] MEDS ORDERED: dexAMETHasone 4 MG/ML 1 ML VIAL As Ordered ONE (10:44)
[2025-04-20] MEDS ORDERED: ACETAMINOPHEN 1000MG/100ML IV BAG As Ordered ONE (10:45)
[2025-04-20] MEDS ORDERED: ONDANSETRON 4MG 2ML VIAL As Ordered ONE (10:53)
[2025-04-20] MEDS: ceFAZolin SOD 2 GM IV ONCE IV ONE (11:36)
[2025-04-20] MEDS: ISOVUE-300 61% 100 ML VIAL As Ordered ONE (12:20)
[2025-04-20] MEDS ORDERED: OXYB5TAB14 PO (12:54)
[2025-04-20] MEDS ORDERED: MACR100C43 PO (12:54)
[2025-04-20] MEDS ORDERED: PYRI1TAB5 PO (12:54)
[2025-04-20] MEDS ORDERED: ONDANSETRON 4MG 2ML VIAL IV PRN (12:55)
[2025-04-20] MEDS ORDERED: HYDROMORPHONE HCL 0.5 MG/0.5 ML SYRINGE IV PRN (12:55)
[2025-04-20] MEDS ORDERED: fentaNYL 100 MCG/2 ML INJECTION IV PRN (12:55)
[2025-04-20 14:18] VITALS: BP 119/73; TEMP 96.1; O2SAT 96
== END 2025-04-20 15:06 | disposition home or self-care (01) ==
LOC: M SDC 10:20
PROVIDERS: ATTEND Urology
DX: C67.6 Malignant neoplasm of ureteric orifice (principal); N28.89 Other specified disorders of kidney and ureter; N40.0 Benign prostatic hyperplasia without lower urinary tract symptoms; Z93.6 Other artificial openings of urinary tract status
CPT/HCPCS: 52235; 74420; 88305; C1769; J0131; J0690; J1100; J2250; J2405; J3010; Q9967

== ENCOUNTER → 2025-06-09 | Outpatient (CLI) | payer MEDICARE, MEDICAID ==
[~2025-06-09] MED LIST changes: +FERR1TAB8 PO; -KETO2CR; -LIDO30CR18; +MACR100C43 PO; +OXYB5TAB14 PO; +PHEN-501 PO; +PYRI1TAB5 PO
[2025-06-09 07:05] VITALS: TEMP 98.2
[2025-06-09] MEDS: MIDAZOLAM INJ 2 MG/2 ML VIAL IV PRN (08:15)
[2025-06-09] MEDS: CIPROFLOXACIN 400 MG in IV 1 EA IV ONE (08:16)
[2025-06-09] MEDS: NS (Normal Saline) 0.9% 1,000 ML IV SCH (08:16)
[2025-06-09] MEDS: SODIUM CHLORIDE 0.9% 1000 ML XX SCH (08:16)
[2025-06-09] MEDS: ISOVUE-300 61% 100 ML VIAL IV SCH (08:21)
[2025-06-09] MEDS: LIDOCAINE 1% MDV 20 ML VIAL SC SCH (08:22)
[2025-06-09 09:00] VITALS: BP 115/70; O2SAT 97
== END ==
LOC: M IRPRO 06:52
PROVIDERS: ATTEND Radiology Diagnostic Radiology
DX: N13.9 Obstructive and reflux uropathy, unspecified (principal)
CPT/HCPCS: 50435; 99152; C1729; J0744; J2250; J3010; Q9967

== ENCOUNTER 2025-06-15 21:20 | Inpatient (IN) | payer MEDICARE, MEDICAID ==
[~2025-06-15] VITALS: Ht 160 cm; Wt 75.1 kg
[~2025-06-15 21:20] MED LIST changes: +CVS6.5DR3 AU; -EAR6.5DR10 AU; -FERR1TAB8 PO; -PHEN-501 PO
[2025-06-15 22:54] LABS: BASO # 0.1 10^3/uL (0.0-0.2); BASO % 0.4 % (0.0-1.0); EOS # 0.0 10^3/uL (0.0-0.5); EOS % 0.2 % (0.0-3.0); LYMPH # 0.8 10^3/uL (1.5-5.0); LYMPH % 4.8 % (24.0-44.0); MONO # 1.2 10^3/uL (0.0-0.8); MONO % 7.1 % (2.0-8.0); NEUTROPHILS # 14.1 10^3/uL (1.5-8.5); NEUTROPHILS % 86.7 % (36.0-66.0); PLATELET COUNT, AUTOMATED 265 10^3/uL (150-450)
[2025-06-15 23:10] LABS: KETONE, URINE AUTO RFX NEGATIVE (NEGATIVE); MUCUS, URINE RFX SMALL (NEGATIVE); NITRITE, URINE AUTO RFX NEGATIVE (NEGATIVE); RBC, URINE AUTO RFX 169 /HPF (0-3); SQUAM EPITHELIAL CELL UR AURFX 1 /HPF (0-6)
[2025-06-15 23:12] LABS: KETONE, URINE AUTO RFX NEGATIVE (NEGATIVE); MUCUS, URINE RFX MODERATE (NEGATIVE); RBC, URINE AUTO RFX TNTC /HPF (0-3); SQUAM EPITHELIAL CELL UR AURFX 4 /HPF (0-6)
[2025-06-15 23:12] LABS: LEUKOCYTE ESTERASE UR AUTO RFX 3+ (NEGATIVE); WBC, URINE AUTO RFX TNTC /HPF (0-3)
[2025-06-15 23:13] LABS: LEUKOCYTE ESTERASE UR AUTO RFX 3+ (NEGATIVE); NITRITE, URINE AUTO RFX POSITIVE (NEGATIVE); WBC, URINE AUTO RFX TNTC /HPF (0-3)
[2025-06-15 23:14] LABS: ALT/SGPT 24 U/L (7.0-40); AST/SGOT 26 U/L (<34); CALCIUM LEVEL 8.6 MG/DL (8.5-10.1); CARBON DIOXIDE LEVEL 23 MMOL/L (20-31); CHLORIDE LEVEL 109 MMOL/L (98-107); CREATININE FOR GFR 0.94 MG/DL (0.70-1.30); GLOMERULAR FILTRATION RATE > 90.0 (>56); POTASSIUM SERUM 3.7 MMOL/L (3.5-5.1); SODIUM LEVEL 145 MMOL/L (136-145)
[2025-06-15 23:19] LABS: KETONE, URINE MANUAL REFLEX 1+ mg/dL (NEGATIVE); PROTEIN, URINE MANUAL REFLEX 3+ mg/dL (NEGATIVE); SP GRAVITY,URINE MANUAL REFLEX 1.010 (1.002-1.035); UROBILINOGEN, UA MANUAL REFLEX NORMAL (NORMAL)
[2025-06-15 23:20] LABS: NITRITE, URINE MANUAL RFX NEGATIVE (NEGATIVE)
[2025-06-15 23:21] LABS: HYALINE CAST, URINE RFX NONE SEEN /lpf (0-1); MICROSCOPIC EXAM RFX UNSPUN; RBC, URINE MAN REFLEX 15-20 /hpf (0-3); SQUAMOUS EPITHELIAL URINE RFX NONE SEEN /hpf (SMALL AMT); WBC, URINE MAN RFX TNTC /hpf (0-3)
[2025-06-15] MEDS: NS (Normal Saline) 0.9% 1,000 ML IV ONE (23:41)
[2025-06-15] MEDS: MEROPENEM 2 GM in SODIUM CHLORIDE 0.9% INJ 100 ML IV ONE (23:42)
[2025-06-15] MEDS ORDERED: ISOVUE-370 76% 100 ML VIAL As Ordered ONE (23:49)
[2025-06-16] VITALS (7 sets, daily range): BP systolic 100–129; BP diastolic 60–79; TEMP 97.5–97.9; O2SAT 88–98
[2025-06-16] MEDS: NS (Normal Saline) 0.9% 1,000 ML IV ONE (02:22)
[2025-06-16] MEDS ORDERED: MEROPENEM 2 GM in SODIUM CHLORIDE 0.9% INJ 100 ML IV SCH (03:45)
[2025-06-16] MEDS ORDERED: MOM 30 ML SUSPENSION UDC PO PRN (03:45)
[2025-06-16] MEDS ORDERED: MAALOX 30 ML SUSP *UDC PO PRN (03:45)
[2025-06-16] MEDS: MEROPENEM 1 GM in IV 1 EA IV SCH (06:23)
[2025-06-16] MEDS: DOCUSATE SODIUM 100 MG CAPSULE PO SCH (08:52)
[2025-06-16] MEDS ORDERED: OXYB5TAB14 PO (10:16)
[2025-06-16] MEDS ORDERED: PHEN-501 PO (10:16)
[2025-06-16] MEDS ORDERED: MORP1SOL4 PO (10:16)
[2025-06-16] MEDS ORDERED: MACR100C43 PO (10:16)
[2025-06-16] MEDS ORDERED: FERR1TAB8 PO (10:16)
[2025-06-16] MEDS ORDERED: HOME MED LIST COMPLETE! XX SCH (10:20)
[2025-06-17 00:18] VITALS: BP 105/71; TEMP 97.9; O2SAT 96
[2025-06-17 04:47] VITALS: BP 106/46; TEMP 97.9; O2SAT 98
[2025-06-17 06:44] LABS: PLATELET COUNT, AUTOMATED 256 10^3/uL (150-450)
[2025-06-17 07:21] LABS: ALT/SGPT 18 U/L (7.0-40); AST/SGOT 16 U/L (<34); CALCIUM LEVEL 8.3 MG/DL (8.5-10.1); CARBON DIOXIDE LEVEL 26 MMOL/L (20-31); CHLORIDE LEVEL 106 MMOL/L (98-107); CREATININE FOR GFR 0.88 MG/DL (0.70-1.30); GLOMERULAR FILTRATION RATE > 90.0 (>56); MAGNESIUM LEVEL 1.7 MG/DL (1.8-2.4); POTASSIUM SERUM 2.9 MMOL/L (3.5-5.1); SODIUM LEVEL 144 MMOL/L (136-145)
[2025-06-17 08:13] VITALS: BP 107/74; TEMP 97.3; O2SAT 95
[2025-06-17] MEDS ORDERED: ALPRAZolam 0.25 MG TAB PO PRN (09:00)
[2025-06-17] MEDS: MAG SULF 1GM/100ML (MAG RUN) 1 GM in IV 1 EA IV ONE (09:25)
[2025-06-17] MEDS: SERTRALINE HCL 50 MG TAB PO SCH (09:26)
[2025-06-17] MEDS: MIDODRINE 5 MG TAB PO SCH (09:28)
[2025-06-17] MEDS: POTASSIUM CHLORIDE 10MEQ SR TABLET PO ONE (09:30)
[2025-06-17] MEDS: GABAPENTIN 400 MG CAP PO SCH (09:30)
[2025-06-17 11:53] VITALS: BP 100/62; TEMP 97.2; O2SAT 92
[2025-06-17] MEDS: KETOCONAZOLE 2% CREAM TOP SCH (14:30)
[2025-06-17] MEDS: POTASSIUM CHLORIDE 10MEQ SR TABLET PO SCH (14:31)
[2025-06-17 16:12] VITALS: BP 93/63; TEMP 97.5; O2SAT 96
[2025-06-17 19:41] VITALS: BP 94/65; TEMP 97.9; O2SAT 93
[2025-06-18 03:34] VITALS: BP 94/66; TEMP 97.5; O2SAT 92
[2025-06-18 06:36] LABS: BASO # 0.0 10^3/uL (0.0-0.2); BASO % 0.3 % (0.0-1.0); EOS # 0.2 10^3/uL (0.0-0.5); EOS % 1.8 % (0.0-3.0); LYMPH # 1.0 10^3/uL (1.5-5.0); LYMPH % 11.8 % (24.0-44.0); MONO # 0.8 10^3/uL (0.0-0.8); MONO % 8.9 % (2.0-8.0); NEUTROPHILS # 6.7 10^3/uL (1.5-8.5); NEUTROPHILS % 76.4 % (36.0-66.0); PLATELET COUNT, AUTOMATED 258 10^3/uL (150-450)
[2025-06-18 07:02] LABS: CALCIUM LEVEL 8.0 MG/DL (8.5-10.1); CARBON DIOXIDE LEVEL 26 MMOL/L (20-31); CHLORIDE LEVEL 108 MMOL/L (98-107); CREATININE FOR GFR 0.85 MG/DL (0.70-1.30); GLOMERULAR FILTRATION RATE > 90.0 (>56); MAGNESIUM LEVEL 2.0 MG/DL (1.8-2.4); POTASSIUM SERUM 3.3 MMOL/L (3.5-5.1); SODIUM LEVEL 144 MMOL/L (136-145)
[2025-06-18] MEDS: MIDODRINE 5 MG TAB PO SCH (08:28)
[2025-06-18 08:33] VITALS: BP 103/62; TEMP 97.6; O2SAT 95
[2025-06-18] MEDS: DOCUSATE SODIUM 100 MG CAPSULE PO SCH (10:05)
[2025-06-18] MEDS: DOXYCYCLINE HYCLATE 100 MG in DEXTROSE 5% (D5W) MINI-BAG PLU 100 ML IV SCH (10:05)
[2025-06-18] MEDS: POTASSIUM CHLORIDE 10MEQ SR TABLET PO SCH (10:05)
[2025-06-18 12:00] VITALS: BP 84/55; TEMP 97.7; O2SAT 94
[2025-06-18 12:05] VITALS: BP 92/60
[2025-06-18 13:44] VITALS: BP 111/63
[2025-06-18 19:58] VITALS: BP 102/64; TEMP 98.1; O2SAT 95
[2025-06-19 04:26] VITALS: BP 102/63; TEMP 97.9; O2SAT 91
[2025-06-19 07:10] LABS: BASO # 0.0 10^3/uL (0.0-0.2); BASO % 0.3 % (0.0-1.0); EOS # 0.2 10^3/uL (0.0-0.5); EOS % 1.9 % (0.0-3.0); LYMPH # 1.3 10^3/uL (1.5-5.0); LYMPH % 13.0 % (24.0-44.0); MONO # 1.0 10^3/uL (0.0-0.8); MONO % 10.6 % (2.0-8.0); NEUTROPHILS # 7.0 10^3/uL (1.5-8.5); NEUTROPHILS % 73.4 % (36.0-66.0); PLATELET COUNT, AUTOMATED 275 10^3/uL (150-450)
[2025-06-19 08:15] LABS: CALCIUM LEVEL 7.8 MG/DL (8.5-10.1); CARBON DIOXIDE LEVEL 26 MMOL/L (20-31); CHLORIDE LEVEL 109 MMOL/L (98-107); CREATININE FOR GFR 0.76 MG/DL (0.70-1.30); GLOMERULAR FILTRATION RATE > 90.0 (>56); POTASSIUM SERUM 3.6 MMOL/L (3.5-5.1); SODIUM LEVEL 145 MMOL/L (136-145)
[2025-06-19 12:00] VITALS: BP 109/77; TEMP 97.7; O2SAT 96
[2025-06-19 20:00] VITALS: BP 107/71; TEMP 98.1; O2SAT 89
[2025-06-19] MEDS: LINEZOLID 600 MG TABLET PO SCH (21:19)
[2025-06-20 04:00] VITALS: BP 105/70; TEMP 97.5; O2SAT 92
[2025-06-20 06:36] LABS: BASO # 0.1 10^3/uL (0.0-0.2); BASO % 0.5 % (0.0-1.0); EOS # 0.2 10^3/uL (0.0-0.5); EOS % 2.1 % (0.0-3.0); LYMPH # 1.2 10^3/uL (1.5-5.0); LYMPH % 12.0 % (24.0-44.0); MONO # 0.9 10^3/uL (0.0-0.8); MONO % 9.2 % (2.0-8.0); NEUTROPHILS # 7.5 10^3/uL (1.5-8.5); NEUTROPHILS % 75.4 % (36.0-66.0); PLATELET COUNT, AUTOMATED 315 10^3/uL (150-450)
[2025-06-20 07:02] LABS: CALCIUM LEVEL 8.4 MG/DL (8.5-10.1); CARBON DIOXIDE LEVEL 26 MMOL/L (20-31); CHLORIDE LEVEL 107 MMOL/L (98-107); CREATININE FOR GFR 0.77 MG/DL (0.70-1.30); GLOMERULAR FILTRATION RATE > 90.0 (>56); POTASSIUM SERUM 3.8 MMOL/L (3.5-5.1); SODIUM LEVEL 145 MMOL/L (136-145)
[2025-06-20] MEDS ORDERED: POTASSIUM CHLORIDE 10MEQ SR TABLET PO SCH (09:00)
[2025-06-20 11:44] VITALS: BP 103/72; TEMP 96.6; O2SAT 91
[2025-06-20] MEDS ORDERED: FERR1TAB8 PO (14:58)
[2025-06-20 19:54] VITALS: BP 101/70; TEMP 97.5; O2SAT 95
[2025-06-21 03:45] VITALS: BP 101/72; TEMP 97.7; O2SAT 92
[2025-06-21 06:47] LABS: BASO # 0.1 10^3/uL (0.0-0.2); BASO % 0.5 % (0.0-1.0); EOS # 0.3 10^3/uL (0.0-0.5); EOS % 2.8 % (0.0-3.0); LYMPH # 1.2 10^3/uL (1.5-5.0); LYMPH % 12.4 % (24.0-44.0); MONO # 0.7 10^3/uL (0.0-0.8); MONO % 7.3 % (2.0-8.0); NEUTROPHILS # 7.2 10^3/uL (1.5-8.5); NEUTROPHILS % 76.3 % (36.0-66.0); PLATELET COUNT, AUTOMATED 326 10^3/uL (150-450)
[2025-06-21 07:38] LABS: CALCIUM LEVEL 8.6 MG/DL (8.5-10.1); CARBON DIOXIDE LEVEL 25 MMOL/L (20-31); CHLORIDE LEVEL 106 MMOL/L (98-107); CREATININE FOR GFR 0.83 MG/DL (0.70-1.30); GLOMERULAR FILTRATION RATE > 90.0 (>56); POTASSIUM SERUM 3.9 MMOL/L (3.5-5.1); SODIUM LEVEL 143 MMOL/L (136-145)
[2025-06-21 11:48] VITALS: BP 100/68; TEMP 97.3; O2SAT 94
[2025-06-21 20:00] VITALS: TEMP 97.5; O2SAT 90
[2025-06-22] MEDS: ACETAMINOPHEN 325 MG TAB PO PRN (00:02)
[2025-06-22 04:00] VITALS: BP 103/69; TEMP 97.5; O2SAT 95
[2025-06-22 06:14] LABS: BASO # 0.1 10^3/uL (0.0-0.2); BASO % 0.5 % (0.0-1.0); EOS # 0.3 10^3/uL (0.0-0.5); EOS % 2.7 % (0.0-3.0); LYMPH # 1.2 10^3/uL (1.5-5.0); LYMPH % 12.6 % (24.0-44.0); MONO # 1.0 10^3/uL (0.0-0.8); MONO % 10.0 % (2.0-8.0); NEUTROPHILS # 7.0 10^3/uL (1.5-8.5); NEUTROPHILS % 73.7 % (36.0-66.0); PLATELET COUNT, AUTOMATED 329 10^3/uL (150-450)
[2025-06-22 06:47] LABS: CALCIUM LEVEL 8.7 MG/DL (8.5-10.1); CARBON DIOXIDE LEVEL 27 MMOL/L (20-31); CHLORIDE LEVEL 107 MMOL/L (98-107); CREATININE FOR GFR 0.94 MG/DL (0.70-1.30); GLOMERULAR FILTRATION RATE > 90.0 (>56); POTASSIUM SERUM 4.1 MMOL/L (3.5-5.1); SODIUM LEVEL 145 MMOL/L (136-145)
[2025-06-22 12:00] VITALS: BP 81/64; TEMP 97.5; O2SAT 95
[2025-06-22 12:09] VITALS: BP 84/56
[2025-06-22 12:49] VITALS: BP 90/61
[2025-06-22 20:03] VITALS: BP 96/64; TEMP 97.3; O2SAT 93
[2025-06-23 04:21] VITALS: BP 97/64; TEMP 97.3; O2SAT 94
[2025-06-23 06:45] LABS: BASO # 0.0 10^3/uL (0.0-0.2); BASO % 0.5 % (0.0-1.0); EOS # 0.2 10^3/uL (0.0-0.5); EOS % 2.9 % (0.0-3.0); LYMPH # 1.3 10^3/uL (1.5-5.0); LYMPH % 16.0 % (24.0-44.0); MONO # 0.7 10^3/uL (0.0-0.8); MONO % 8.9 % (2.0-8.0); NEUTROPHILS # 5.7 10^3/uL (1.5-8.5); NEUTROPHILS % 70.9 % (36.0-66.0); PLATELET COUNT, AUTOMATED 337 10^3/uL (150-450)
[2025-06-23 07:08] LABS: CALCIUM LEVEL 8.6 MG/DL (8.5-10.1); CARBON DIOXIDE LEVEL 29 MMOL/L (20-31); CHLORIDE LEVEL 104 MMOL/L (98-107); CREATININE FOR GFR 0.85 MG/DL (0.70-1.30); GLOMERULAR FILTRATION RATE > 90.0 (>56); POTASSIUM SERUM 4.0 MMOL/L (3.5-5.1); SODIUM LEVEL 142 MMOL/L (136-145)
[2025-06-23] MEDS ORDERED: LINE1TAB6 PO (08:02)
[2025-06-23] MEDS: MIDODRINE 5 MG TAB PO SCH (08:24)
[2025-06-23 12:27] VITALS: TEMP 97.7; O2SAT 96
[2025-06-23 16:09] VITALS: BP 112/78
== END 2025-06-23 16:20 | disposition home health service (06) | DRG 698 ==
LOC: M ED 21:20 → EEVIPCON 06-16 03:45 → M ED INP 06-16 03:45 → M MSPAV 06-16 05:06
PROVIDERS: ADMIT Student in an Organized Health Care Education/Training Program; ATTEND Internal Medicine Nephrology
DX: T83.518A Infection and inflammatory reaction due to other urinary catheter, initial encounter (principal); A41.9 Sepsis, unspecified organism; N12 Tubulo-interstitial nephritis, not specified as acute or chronic; C78.6 Secondary malignant neoplasm of retroperitoneum and peritoneum; Y84.6 Urinary catheterization as the cause of abnormal reaction of the patient, or of later complication, without mention of misadventure at the time of the procedure; C67.9 Malignant neoplasm of bladder, unspecified; G80.9 Cerebral palsy, unspecified; J45.909 Unspecified asthma, uncomplicated; I95.89 Other hypotension; E87.6 Hypokalemia; E83.42 Hypomagnesemia; Z99.3 Dependence on wheelchair; M19.90 Unspecified osteoarthritis, unspecified site; Z66 Do not resuscitate; Z79.899 Other long term (current) drug therapy; Z88.0 Allergy status to penicillin; Z88.5 Allergy status to narcotic agent; G62.9 Polyneuropathy, unspecified; G89.29 Other chronic pain; Z79.891 Long term (current) use of opiate analgesic; F32.A Depression, unspecified; F41.9 Anxiety disorder, unspecified

== ENCOUNTER → 2025-06-28 | Outpatient (CLI) | payer MEDICARE, OTHER ==
[~2025-06-28] MED LIST changes: +FERR1TAB8 PO; +ISOVUE-370 76% 100 ML VIAL As Ordered ONE; +PHEN-501 PO
== END ==
LOC: M RAD 10:17
PROVIDERS: ATTEND Specialist
DX: C67.9 Malignant neoplasm of bladder, unspecified (principal)
CPT/HCPCS: 71260; 74177; Q9967

== ENCOUNTER → 2025-07-04 | Outpatient (CLI) | payer MEDICARE, MEDICAID ==
[~2025-07-04] MED LIST changes: -ISOVUE-370 76% 100 ML VIAL As Ordered ONE
== END ==
LOC: M PAL 13:03
PROVIDERS: ATTEND Physician Assistant
DX: Z51.5 Encounter for palliative care (principal); Z66 Do not resuscitate; C67.9 Malignant neoplasm of bladder, unspecified; Z92.21 Personal history of antineoplastic chemotherapy; Z92.3 Personal history of irradiation; G80.8 Other cerebral palsy; Z99.3 Dependence on wheelchair; Z79.891 Long term (current) use of opiate analgesic; Z88.5 Allergy status to narcotic agent; Z88.1 Allergy status to other antibiotic agents; Z88.0 Allergy status to penicillin; Z79.899 Other long term (current) drug therapy; Z79.83 Long term (current) use of bisphosphonates

== ENCOUNTER → 2025-07-11 | Outpatient (CLI) | payer MEDICAID, MEDICARE, OTHER ==
[~2025-07-11] MED LIST changes: +METH-1100 PO; -METH-855 PO
== END ==
LOC: M RAD 07:48
PROVIDERS: ATTEND Internal Medicine Medical Oncology
DX: C67.9 Malignant neoplasm of bladder, unspecified (principal)

== ENCOUNTER → 2025-08-04 | Outpatient (CLI) | payer MEDICARE, MEDICAID | LOC: M ONCR 10:23 | PROVIDERS: ATTEND General Practice | DX: Z08 Encounter for follow-up examination after completed treatment for malignant neoplasm (principal); Z85.51 Personal history of malignant neoplasm of bladder; F17.220 Nicotine dependence, chewing tobacco, uncomplicated; Z92.3 Personal history of irradiation; Z88.0 Allergy status to penicillin; Z88.1 Allergy status to other antibiotic agents; Z88.5 Allergy status to narcotic agent; Z79.899 Other long term (current) drug therapy; Z87.440 Personal history of urinary (tract) infections ==

== ENCOUNTER → 2025-08-08 | Outpatient (CLI) | payer MEDICARE, MEDICAID ==
[2025-08-08 10:15] VITALS: TEMP 98.2
[2025-08-08] MEDS: CIPROFLOXACIN 400 MG in IV 1 EA IV ONE (10:59)
[2025-08-08] MEDS: NS (Normal Saline) 0.9% 1,000 ML IV SCH (11:43)
[2025-08-08] MEDS: MIDAZOLAM INJ 2 MG/2 ML VIAL IV PRN (11:43)
[2025-08-08] MEDS: SODIUM CHLORIDE 0.9% 1000 ML XX SCH (11:44)
[2025-08-08] MEDS: LIDOCAINE 1% MDV 20 ML VIAL SC SCH (11:48)
[2025-08-08] MEDS: ISOVUE-300 61% 100 ML VIAL IV SCH (11:48)
[2025-08-08 12:15] VITALS: BP 111/73; O2SAT 95
== END ==
LOC: M IRPRO 09:52
PROVIDERS: ATTEND Radiology Diagnostic Radiology
DX: N13.9 Obstructive and reflux uropathy, unspecified (principal)
CPT/HCPCS: 50435; 99152; C1729; J0744; J2250; J3010; Q9967

== ENCOUNTER 2025-08-29 14:22 | Inpatient (IN) | payer MEDICARE, MEDICAID ==
[~2025-08-29] VITALS: Ht 160 cm; Wt 75.4 kg
[2025-08-29] MEDS: MIDODRINE 5 MG TAB PO SCH (08:00)
[2025-08-29 15:12] LABS: BASO # 0.0 10^3/uL (0.0-0.2); BASO % 0.4 % (0.0-1.0); EOS # 0.1 10^3/uL (0.0-0.5); EOS % 1.5 % (0.0-3.0); LYMPH # 0.8 10^3/uL (1.5-5.0); LYMPH % 9.0 % (24.0-44.0); MONO # 0.9 10^3/uL (0.0-0.8); MONO % 10.0 % (2.0-8.0); NEUTROPHILS # 7.1 10^3/uL (1.5-8.5); NEUTROPHILS % 78.7 % (36.0-66.0); PLATELET COUNT, AUTOMATED 283 10^3/uL (150-450)
[2025-08-29 15:43] LABS: ALT/SGPT 18.0 U/L (7.0-40); AST/SGOT 20.0 U/L (<34); CALCIUM LEVEL 8.5 MG/DL (8.5-10.1); CARBON DIOXIDE LEVEL 25.0 MMOL/L (20-31); CHLORIDE LEVEL 108.0 MMOL/L (98-107); CREATININE FOR GFR 1.13 MG/DL (0.70-1.30); GLOMERULAR FILTRATION RATE 75.3 (>56); POTASSIUM SERUM 3.6 MMOL/L (3.5-5.1); SODIUM LEVEL 145.0 MMOL/L (136-145)
[2025-08-29 15:52] LABS: KETONE, URINE AUTO RFX NEGATIVE (NEGATIVE); MUCUS, URINE RFX SMALL (NEGATIVE); RBC, URINE AUTO RFX 53 /HPF (0-3); SQUAM EPITHELIAL CELL UR AURFX 0 /HPF (0-6)
[2025-08-29 15:57] LABS: LEUKOCYTE ESTERASE UR AUTO RFX 3+ (NEGATIVE); NITRITE, URINE AUTO RFX POSITIVE (NEGATIVE); WBC, URINE AUTO RFX TNTC /HPF (0-3)
[2025-08-29] MEDS ORDERED: SODIUM CHLORIDE 0.9% INJ 10 ML SYR IV PRN (16:15)
[2025-08-29] MEDS ORDERED: HEPARIN LOCK FLUSH 100 UNITS/ML 3 ML SYRINGE IV PRN (16:15)
[2025-08-29] MEDS: LIDOCAINE/PRILOCAINE CREAM 5 GM TUBE TOP ONE (16:29)
[2025-08-29 16:36] LABS: APPEARANCE, URINE HAZY (CLEAR); BACTERIA, URINE AUTO NEGATIVE (NEGATIVE); BILIRUBIN, URINE AUTO NEGATIVE (NEGATIVE); BLOOD, URINE BLOOD 2+ (NEGATIVE); GLUCOSE, URINE (UA) AUTO 1+ mg/dL (NEGATIVE); KETONE, URINE AUTO NEGATIVE (NEGATIVE); LEUKOCYTE ESTERASE, URINE AUTO 2+ (NEGATIVE); MUCUS, URINE SMALL (NEGATIVE); NITRITE, URINE AUTO NEGATIVE (NEGATIVE); PROTEIN, URINE AUTO 3+ mg/dL (NEGATIVE); RBC, URINE AUTO 132 /HPF (0-3); SPECIFIC GRAVITY URINE AUTO 1.017 (1.002-1.035); SQUAMOUS EPITHELIAL CELL UR AU 0 /HPF (0-6); UROBILINOGEN, URINE AUTO 0.2 mg/dL (0.0-2.0); WBC, URINE AUTO 26 /HPF (0-3)
[2025-08-29] MEDS ORDERED: ISOVUE-370 76% 100 ML VIAL As Ordered ONE (17:30)
[2025-08-29] MEDS ORDERED: SENN-186 PO (19:16)
[2025-08-29] MEDS ORDERED: HOME MED LIST COMPLETE! XX SCH (19:20)
[2025-08-29] MEDS ORDERED: ALPRAZolam 0.25 MG TAB PO PRN (20:15)
[2025-08-29] MEDS ORDERED: PHENAZOPYRIDINE 100 MG TAB PO PRN (20:15)
[2025-08-29] MEDS ORDERED: ACETAMINOPHEN 500 MG TAB PO PRN (20:15)
[2025-08-29] MEDS ORDERED: MOM 30 ML SUSPENSION UDC PO PRN (20:15)
[2025-08-29] MEDS ORDERED: PROCHLORPERAZINE 5MG TAB PO PRN (20:15)
[2025-08-29] MEDS: MEROPENEM 1 GM in IV 1 EA IV ONE (21:11)
[2025-08-29] MEDS: NS (Normal Saline) 0.9% 1,000 ML IV SCH (21:11)
[2025-08-29 21:30] VITALS: BP 107/73; TEMP 97.7; O2SAT 96
[2025-08-29] MEDS: GABAPENTIN 400 MG CAP PO SCH (23:21)
[2025-08-29] MEDS: METHENAMINE HIPPURATE 1 GM TABLET PO SCH (23:21)
[2025-08-30] MEDS: MEROPENEM 2 GM in SODIUM CHLORIDE 0.9% INJ 100 ML IV SCH (05:29)
[2025-08-30 06:13] VITALS: BP 93/69; TEMP 97.5; O2SAT 93
[2025-08-30 07:14] LABS: PLATELET COUNT, AUTOMATED 207 10^3/uL (150-450)
[2025-08-30 08:04] LABS: ALT/SGPT 15.0 U/L (7.0-40); AST/SGOT 18.0 U/L (<34); CALCIUM LEVEL 7.8 MG/DL (8.5-10.1); CARBON DIOXIDE LEVEL 26.0 MMOL/L (20-31); CHLORIDE LEVEL 108.0 MMOL/L (98-107); CREATININE FOR GFR 1.02 MG/DL (0.70-1.30); GLOMERULAR FILTRATION RATE 85.2 (>56); MAGNESIUM LEVEL 1.8 MG/DL (1.8-2.4); POTASSIUM SERUM 3.3 MMOL/L (3.5-5.1); SODIUM LEVEL 143.0 MMOL/L (136-145)
[2025-08-30] MEDS: SERTRALINE HCL 50 MG TAB PO SCH (08:47)
[2025-08-30] MEDS: ENOXAPARIN 30 MG/0.3 ML SYRINGE (J1650 PER 10MG) SC SCH (08:47)
[2025-08-30] MEDS: POTASSIUM CHLORIDE 10MEQ SR TABLET PO SCH (08:47)
[2025-08-30] MEDS: KETOCONAZOLE 2% CREAM TOP SCH (09:00)
[2025-08-30] MEDS ORDERED: LIDOCAINE/PRILOCAINE CREAM 5 GM TUBE TOP PRN (10:00)
[2025-08-30] MEDS ORDERED: SENNA 8.6 MG TAB PO PRN (10:00)
[2025-08-30] MEDS ORDERED: FLUTICASONE PROPIONATE 0.05% NASAL SPRAY 16 GM NARES PRN (10:00)
[2025-08-30] MEDS ORDERED: DOCUSATE SODIUM 100 MG CAPSULE PO PRN (10:00)
[2025-08-30 10:23] LABS: C REACTIVE PROTEIN QUANTITATIV 6.46 MG/DL (<1.0)
[2025-08-30] MEDS: MAG SULF 1GM/100ML (MAG RUN) 1 GM in IV 1 EA IV SCH (11:44)
[2025-08-30 14:00] VITALS: BP 121/67; TEMP 98.6; O2SAT 97
[2025-08-30] MEDS: POTASSIUM CHLORIDE 10MEQ SR TABLET PO ONE (17:10)
[2025-08-30 18:00] VITALS: BP 114/66; TEMP 98.3; O2SAT 92
[2025-08-30 21:29] VITALS: BP 105/62; TEMP 99.5; O2SAT 98
[2025-08-30 23:56] VITALS: BP 123/76; TEMP 97.8; O2SAT 96
[2025-08-31] VITALS (9 sets, daily range): BP systolic 83–106; BP diastolic 53–66; TEMP 98.1–98.7; O2SAT 91–98
[2025-08-31 08:40] LABS: BASO # 0.1 10^3/uL (0.0-0.2); BASO % 0.6 % (0.0-1.0); EOS # 0.2 10^3/uL (0.0-0.5); EOS % 2.0 % (0.0-3.0); LYMPH # 0.6 10^3/uL (1.5-5.0); LYMPH % 5.9 % (24.0-44.0); MONO # 1.0 10^3/uL (0.0-0.8); MONO % 10.1 % (2.0-8.0); NEUTROPHILS # 7.9 10^3/uL (1.5-8.5); NEUTROPHILS % 80.7 % (36.0-66.0); PLATELET COUNT, AUTOMATED 293 10^3/uL (150-450)
[2025-08-31 09:01] LABS: ALT/SGPT 18.0 U/L (7.0-40); AST/SGOT 20.0 U/L (<34); CALCIUM LEVEL 8.2 MG/DL (8.5-10.1); CARBON DIOXIDE LEVEL 24.0 MMOL/L (20-31); CHLORIDE LEVEL 110.0 MMOL/L (98-107); CREATININE FOR GFR 1.12 MG/DL (0.70-1.30); GLOMERULAR FILTRATION RATE 76.2 (>56); MAGNESIUM LEVEL 2.0 MG/DL (1.8-2.4); POTASSIUM SERUM 3.6 MMOL/L (3.5-5.1); SODIUM LEVEL 144.0 MMOL/L (136-145)
[2025-08-31] MEDS: MIDODRINE 5 MG TAB PO SCH (11:07)
[2025-08-31] MEDS: LIDOCAINE 1% MDV 20 ML VIAL SC SCH (15:22)
[2025-08-31] MEDS: ISOVUE-300 61% 100 ML VIAL IV SCH (15:23)
[2025-08-31] MEDS: MIDAZOLAM INJ 2 MG/2 ML VIAL IV PRN (15:23)
[2025-08-31] MEDS: NS (Normal Saline) 0.9% 1,000 ML IV SCH (15:29)
[2025-08-31] MEDS: SODIUM CHLORIDE 0.9% 1000 ML XX SCH (15:30)
[2025-08-31 18:25] LABS: KETONE, URINE AUTO RFX NEGATIVE (NEGATIVE); MUCUS, URINE RFX SMALL (NEGATIVE); NITRITE, URINE AUTO RFX NEGATIVE (NEGATIVE); RBC, URINE AUTO RFX TNTC /HPF (0-3); SQUAM EPITHELIAL CELL UR AURFX 0 /HPF (0-6)
[2025-08-31 18:26] LABS: LEUKOCYTE ESTERASE UR AUTO RFX 3+ (NEGATIVE); WBC, URINE AUTO RFX 122 /HPF (0-3)
[2025-08-31] MEDS: MORPHINE SULFATE TAB IMM. REL. 30 MG PO PRN (19:57)
[2025-08-31] MEDS: LINEZOLID 600 MG TABLET PO SCH (20:02)
[2025-09-01 06:53] VITALS: BP 125/67; TEMP 97.3; O2SAT 96
[2025-09-01 08:00] LABS: PLATELET COUNT, AUTOMATED 277 10^3/uL (150-450)
[2025-09-01] MEDS: ENOXAPARIN 30 MG/0.3 ML SYRINGE (J1650 PER 10MG) SC SCH (08:14)
[2025-09-01 08:49] LABS: ALT/SGPT 16.0 U/L (7.0-40); AST/SGOT 17.0 U/L (<34); CALCIUM LEVEL 8.4 MG/DL (8.5-10.1); CARBON DIOXIDE LEVEL 26.0 MMOL/L (20-31); CHLORIDE LEVEL 106.0 MMOL/L (98-107); CREATININE FOR GFR 1.16 MG/DL (0.70-1.30); GLOMERULAR FILTRATION RATE 73.0 (>56); MAGNESIUM LEVEL 1.9 MG/DL (1.8-2.4); POTASSIUM SERUM 3.7 MMOL/L (3.5-5.1); SODIUM LEVEL 143.0 MMOL/L (136-145)
[2025-09-01 12:24] VITALS: BP 103/59; TEMP 98.9; O2SAT 95
[2025-09-01 19:52] VITALS: BP 114/65; TEMP 99.2; O2SAT 97
[2025-09-02] VITALS (7 sets, daily range): BP systolic 94–121; BP diastolic 50–80; TEMP 97.9–99.4; O2SAT 85–95
[2025-09-02] MEDS: ONDANSETRON 4MG TAB PO PRN (00:35)
[2025-09-02] MEDS: SODIUM CHLORIDE 0.9% INJ 10 ML SYR IV PRN (00:37)
[2025-09-02] MEDS: HEPARIN LOCK FLUSH 100 UNITS/ML 3 ML SYRINGE IV PRN (00:37)
[2025-09-02 07:09] LABS: BASO # 0.1 10^3/uL (0.0-0.2); BASO % 0.5 % (0.0-1.0); EOS # 0.4 10^3/uL (0.0-0.5); EOS % 4.4 % (0.0-3.0); LYMPH # 0.8 10^3/uL (1.5-5.0); LYMPH % 8.3 % (24.0-44.0); MONO # 1.2 10^3/uL (0.0-0.8); MONO % 11.7 % (2.0-8.0); NEUTROPHILS # 7.3 10^3/uL (1.5-8.5); NEUTROPHILS % 74.5 % (36.0-66.0); PLATELET COUNT, AUTOMATED 309 10^3/uL (150-450)
[2025-09-02 07:42] LABS: ALT/SGPT 13.0 U/L (7.0-40); AST/SGOT 18.0 U/L (<34); CALCIUM LEVEL 8.2 MG/DL (8.5-10.1); CARBON DIOXIDE LEVEL 26.0 MMOL/L (20-31); CHLORIDE LEVEL 105.0 MMOL/L (98-107); CREATININE FOR GFR 1.14 MG/DL (0.70-1.30); GLOMERULAR FILTRATION RATE 74.6 (>56); MAGNESIUM LEVEL 1.8 MG/DL (1.8-2.4); POTASSIUM SERUM 3.4 MMOL/L (3.5-5.1); SODIUM LEVEL 143.0 MMOL/L (136-145)
[2025-09-02] MEDS: POTASSIUM CHLORIDE 10MEQ SR TABLET PO ONE (08:42)
[2025-09-02] MEDS: HEPARIN LOCK FLUSH 100 UNITS/ML 3 ML SYRINGE IV SCH (08:44)
[2025-09-02] MEDS: SODIUM CHLORIDE 0.9% INJ 10 ML SYR IV SCH (08:44)
[2025-09-03 00:30] VITALS: BP 113/68; TEMP 98.3; O2SAT 94
[2025-09-03 06:00] VITALS: BP 94/53; TEMP 98; O2SAT 96
[2025-09-03 07:45] LABS: BASO # 0.0 10^3/uL (0.0-0.2); BASO % 0.5 % (0.0-1.0); EOS # 0.6 10^3/uL (0.0-0.5); EOS % 6.3 % (0.0-3.0); LYMPH # 1.1 10^3/uL (1.5-5.0); LYMPH % 12.4 % (24.0-44.0); MONO # 0.8 10^3/uL (0.0-0.8); MONO % 9.2 % (2.0-8.0); NEUTROPHILS # 6.2 10^3/uL (1.5-8.5); NEUTROPHILS % 71.0 % (36.0-66.0); PLATELET COUNT, AUTOMATED 303 10^3/uL (150-450)
[2025-09-03 08:13] LABS: CALCIUM LEVEL 7.9 MG/DL (8.5-10.1); CARBON DIOXIDE LEVEL 27.0 MMOL/L (20-31); CHLORIDE LEVEL 105.0 MMOL/L (98-107); CREATININE FOR GFR 1.02 MG/DL (0.70-1.30); GLOMERULAR FILTRATION RATE 85.2 (>56); POTASSIUM SERUM 3.3 MMOL/L (3.5-5.1); SODIUM LEVEL 142.0 MMOL/L (136-145)
[2025-09-03 10:00] VITALS: BP 114/65; TEMP 98.1; O2SAT 94
[2025-09-03 10:02] LABS: MAGNESIUM LEVEL 1.8 MG/DL (1.8-2.4)
[2025-09-03] MEDS: POTASSIUM CHLORIDE 10MEQ SR TABLET PO ONE (12:26)
[2025-09-03 14:00] VITALS: BP 111/94; TEMP 98.2; O2SAT 98
[2025-09-03 18:00] VITALS: BP 113/67; TEMP 98.1; O2SAT 99
[2025-09-03 20:28] VITALS: BP 123/72; TEMP 98.3; O2SAT 96
[2025-09-04 06:00] VITALS: BP 96/52; TEMP 98.5; O2SAT 96
[2025-09-04 06:42] LABS: PLATELET COUNT, AUTOMATED 330 10^3/uL (150-450)
[2025-09-04 10:00] VITALS: BP 103/56; TEMP 98.4; O2SAT 93
[2025-09-04] MEDS ORDERED: LINE1TAB6 PO (11:19)
[2025-09-04] MEDS ORDERED: POTASSIUM CHLORIDE 10MEQ SR TABLET PO ONE (11:20)
[2025-09-04 12:11] VITALS: BP 93/60
== END 2025-09-04 13:45 | disposition home health service (06) | DRG 699 ==
LOC: M ED 14:22 → EDBD 14:22 → INTOOBSV 20:13 → M ED INP 20:13 → M MS5PR 21:22 → OBSVTOIN 08-30 14:59
PROVIDERS: ADMIT Internal Medicine; ATTEND Internal Medicine
PROC: 0T25X0Z Change Drainage Device in Kidney, External Approach (ICD-10-PCS; principal; 2025-08-31 15:00)
DX: T83.518A Infection and inflammatory reaction due to other urinary catheter, initial encounter (principal); C77.9 Secondary and unspecified malignant neoplasm of lymph node, unspecified; N39.0 Urinary tract infection, site not specified; Z66 Do not resuscitate; G80.9 Cerebral palsy, unspecified; J45.909 Unspecified asthma, uncomplicated; M19.90 Unspecified osteoarthritis, unspecified site; I10 Essential (primary) hypertension; E78.00 Pure hypercholesterolemia, unspecified; C67.9 Malignant neoplasm of bladder, unspecified; E87.6 Hypokalemia; E83.42 Hypomagnesemia; I25.10 Atherosclerotic heart disease of native coronary artery without angina pectoris; K83.8 Other specified diseases of biliary tract; N40.0 Benign prostatic hyperplasia without lower urinary tract symptoms; K76.0 Fatty (change of) liver, not elsewhere classified; G89.29 Other chronic pain; D86.9 Sarcoidosis, unspecified; F41.9 Anxiety disorder, unspecified; F32.A Depression, unspecified; I95.89 Other hypotension; Z79.899 Other long term (current) drug therapy; Z88.0 Allergy status to penicillin; Z88.5 Allergy status to narcotic agent; Z99.3 Dependence on wheelchair; Z93.6 Other artificial openings of urinary tract status

== ENCOUNTER → 2025-10-03 | Outpatient (CLI) | payer MEDICARE, MEDICAID ==
[~2025-10-03] MED LIST changes: -BACTDSTA PO; +SULF-8 PO
== END ==
LOC: M PAL 12:58
PROVIDERS: ATTEND Physician Assistant
DX: Z51.5 Encounter for palliative care (principal); Z66 Do not resuscitate; C80.1 Malignant (primary) neoplasm, unspecified; Z92.21 Personal history of antineoplastic chemotherapy; Z92.3 Personal history of irradiation; G80.0 Spastic quadriplegic cerebral palsy; Z74.09 Other reduced mobility; Z79.891 Long term (current) use of opiate analgesic; Z88.1 Allergy status to other antibiotic agents; Z88.5 Allergy status to narcotic agent; Z88.0 Allergy status to penicillin; Z79.899 Other long term (current) drug therapy; Z79.52 Long term (current) use of systemic steroids